=== PATIENT | female | born 1970 | race Caucasian/White ===

== ENCOUNTER 2018-02-17 10:09 | Observation (INO) ==
--- NOTE | 2018-02-17 11:51 | History & Physical Report ---
*Admission Date: 02/17/18 *Chief complaint: RLL & RML Pneumonia *History of present illness: Patient was seen in the ER on 02/12/18 and diagnosed with bronchitis. Started on Levaquin and Prednisone. Was seen again on 02/14/18 at the [facility] because she could not stop coughing. CXR showed RLL and RML pneumonia. Today, she still feels poorly. Cough is intractable. Productive of colored sputum. She does smoke. No fever per thermometer, but hot flashes and cold chills. No vomiting or diarrhea. [facility] History I have reviewed the patient's past medical history: Yes Medical History: Reports:: Anxiety, Depression, Gastroesophageal Reflux Disease (GERD) Other Surgeries: Yes: , Hysterectomy-Total Amputation: No Fractures: No - *Social History Smoking Status: Current every day smoker Tobacco Type: cigarettes # Packs/Day (cigarettes): 1 Alcohol Intake: current Alcohol Intake Frequency:: holidays/special occasions only Substance Use Type: denies use - Psychiatric History Pschychiatric History:: Reports:: Anxiety, Depression *Family Hx:: Cancer Review of Systems - Review of Systems Review of systems:: pertinent systems reviewed and negative unless documented below - Constitutional Reports body ache(s), Reports chills, Reports fatigue, Reports malaise, Denies fever(s) - ENT Reports sore throat - *Cardiovascular Reports chest pain, Reports shortness of breath when lying down - *Respiratory Reports chest congestion, Reports cough, Reports pain on inspiration, Reports wheezing - Psychiatric Reports anxiety Meds Allergies Allergy/AdvReac Type Severity Reaction Status Date / Time No Known Allergies Allergy Verified 02/17/18 09:49 Exam - Constitutional mild distress - *Routine HEENT Exam Head: Present: normocephalic Eye: Present: PERRL ENT: Present: mucous membranes moist, oropharynx clear, TM's clear bilaterally. Absent: sinus tenderness - *Routine Neck Exam Present: supple, full ROM. Absent: meningismus - Routine Chest/Breast/Axilla Exam Chest wall: Present: tenderness - *Routine Respiratory Exam Present: accessory muscle use, decreased breath sounds, respiratory distress (mild), rhonchi, wheezes - *Routine Cardiovascular Exam Present: RRR. Absent: murmur - *Routine Extremities Exam Absent: cyanosis, clubbing, edema - *Routine Skin Exam Present: intact. Absent: cyanosis - *Routine Neurological Exam Present: alert, oriented X3 - Routine Psychiatric Exam Present: anxious H&P: Result - Impressions RML & RLL Pneumonia Assessment and Plan (1) RLL pneumonia Status: Acute Qualifiers: Pneumonia type: due to unspecified organism Qualified Code(s): J18.1 - Lobar pneumonia, unspecified organism Category: Medical Code(s): J18.1 - Lobar pneumonia, unspecified organism - Assessment and plan all Dx Assessment and Plan for all problems:: Antibiotics, steroids, breathing treatments
--- NOTE | 2018-02-17 12:20 | Pharmacy Consult Notes ---
[facility] Pharmacy VTE Monitoring - Patient Demographics Admission date: 02/17/18 Report Date: 02/17/18 Time: 12:20 Allergies/Adverse Reactions: Patient Allergies No Known Allergies Allergy (Verified 02/17/18 09:49) - VTE Risk Clinical Trial Participant: No - Prophylaxis VTE Prophylaxis Ordered?: Yes Types of VTE Prophylaxis: TEDS Knee High
[2018-02-17 13:26] LABS: Albumin Level 3.7 gm/dL (3.4-5.0); Albumin/Globulin Ratio 0.9 (1.1-1.8); Anion Gap 15.1 mEq/L (5-15); Bilirubin,Total 0.5 mg/dL (0.2-1.0); Globulin 3.9 gm/dl (1.3-3.2); Total Protein,Serum 7.6 gm/dL (6.4-8.2)
[2018-02-17 13:27] LABS: Potassium 4.1 mmoL/L (3.5-5.1)
[2018-02-17 13:40] LABS: Basophils # 0.1 K/mm3 (0-0.2); Basophils % 0.8 % (0.1-2.0); Eosinophils # 0.2 K/mm3 (0.0-0.4); Eosinophils % 1.6 % (0.1-12.0); Hemoglobin 15.2 g/dL (12.2-16.2); Lymphocytes # 2.5 K/mm3 (0.7-4.5); Lymphocytes % 24.8 K/mm3 (10-50); Mean Corpuscular HGB Conc 32.4 g/dL (31.8-35.4); Mean Corpuscular Hemoglobin 28.4 pg (27.0-31.2); Mean Corpuscular Volume 87.4 fl (81-99); Mean Platelet Volume 8.8 fl (7.4-10.4); Monocytes # 0.5 K/mm3 (0.1-1.0); Neutrophils # 6.7 K/mm3 (1.8-7.8); Neutrophils % 67.8 % (37.0-80.0); Platelet Count 229 K/mm3 (142-424); Red Blood Count 5.38 M/mm3 (4.20-5.40); White Blood Count 9.9 K/mm3 (4.8-10.8)
--- NOTE | 2018-02-18 09:28 | Progress Note ---
Internal Medicine - PN: Subj *Date: 02/18/18 *Time: : Exam Vital signs and Labs for Last 24 Hours: Temp Pulse Resp BP Pulse Ox 99.2 F 61 18 99/65 98 02/18/18 08:00 02/18/18 08:00 02/18/18 08:28 02/18/18 08:00 02/18/18 08:00 Laboratory Results - last 24 hr 02/17/18 12:20: WBC 9.9, RBC 5.38, Hgb 15.2, Hct 47.0, MCV 87.4, MCH 28.4, MCHC 32.4, RDW 13.0, Plt Count 229, MPV 8.8, Neut % (Auto) 67.8, Lymph % (Auto) 24.8, Brooks % (Auto) 5.0, Eos % (Auto) 1.6, Baso % (Auto) 0.8, Neut # (Auto) 6.7, Lymph # (Auto) 2.5, Brooks # (Auto) 0.5, Eos # (Auto) 0.2, Baso # (Auto) 0.1 02/17/18 12:20: Sodium 140, Potassium 4.1, Chloride 103, Carbon Dioxide 26, Anion Gap 15.1 H, BUN 14, Creatinine 0.71, Estimated Creat Clear 106, Estimated GFR 89, Est GFR ( Amer) 107, Glucose 100, Calcium 9.0, Total Bilirubin 0.5, AST 22, ALT 23, Alkaline Phosphatase 98, Total Protein 7.6, Albumin 3.7, Globulin 3.9 H, Albumin/Globulin Ratio 0.9 L 02/17/18 12:20: Lactate 1.5 I & O for Last 24 hours: Intake & Output 02/15/18 02/16/18 02/17/18 02/18/18 11:59 11:59 11:59 11:59 Intake Total 2533 / 2533 Balance 2533 / 2533 Weight 219 lb 1 oz Microbiology Reports for the Last 24 Hours: Microbiology 02/17/18 20:00 Sputum - Expectorated Sputum Gram Stain - Final - *Routine HEENT Exam Head: Present: normocephalic Eye: Present: EOMI, PERRL ENT: Present: mucous membranes moist - *Routine Neck Exam Present: supple. Absent: lymphadenopathy - *Routine Respiratory Exam Present: wheezes, diminished air movement - *Routine Cardiovascular Exam Present: RRR - *Routine Abdominal Exam Present: soft, normoactive bowel sounds. Absent: tenderness - *Routine Extremities Exam Absent: cyanosis, clubbing, edema - *Routine Skin Exam Present: warm. Absent: rash - *Routine Neurological Exam Present: alert, oriented X3 Assessment and Plan (1) RLL pneumonia Current visit: No Status: Acute Qualifiers: Pneumonia type: due to unspecified organism Qualified Code(s): J18.1 - Lobar pneumonia, unspecified organism Category: Medical Code(s): J18.1 - Lobar pneumonia, unspecified organism - Assessment and plan all Dx Assessment and Plan for all problems:: rounded with jonathan, all orders per jonathan failed out pt antibotics
--- NOTE | 2018-02-19 08:08 | Discharge Summary ---
General - General Admission date:: 02/17/18 Discharge date: 02/19/18 HPI HPI: Patient was seen in the ER on 02/12/18 and diagnosed with bronchitis. Started on Levaquin and Prednisone. Was seen again on 02/14/18 at the [facility] because she could not stop coughing. CXR showed RLL and RML pneumonia. Today, she still feels poorly. Cough is intractable. Productive of colored sputum. She does smoke. No fever per thermometer, but hot flashes and cold chills. No vomiting or diarrhea. Above note per admission provider. Patient admitted for failure of outpatient therapy with pneumonia. Heavy smoker, not interested in quitting Hospital Course Hospital Course: Patient was admitted, placed on broad-spectrum antibiotics and oxygen therapy. Patient was able to be weaned off of her oxygen after 24 hours and has had acceptable room air saturations in the mid 90% and draped since that time. This morning patient was eating well, did complain of a cough with some chest wall pain, but otherwise was able to engage in self-care activities, walk about the room and dress herself, use the restroom and eat well. Patient will be discharged home with antibiotics and steroids and she reports that she has a prescription for Tessalon for cough. Of note patient asks for "pain medications for my cough pain" but I informed her that narcotic/opiate therapy for her cough was not currently standard of care because of respiratory suppression issues. Objective Vital signs: Temp Pulse Resp BP Pulse Ox 98.2 F 74 20 113/65 95 02/19/18 07:56 02/19/18 07:56 02/19/18 07:56 02/19/18 07:56 02/19/18 07:56 Narrative: Discharge exam reveals a well appearing white female in no acute distress on room air. Oropharynx clear. Has rhonchi in both lower lung armando but good air movement accessory muscle use. No wheezing. No stridor. No JVD. Heart rate regular without murmurs. No clubbing or cyanosis. No peripheral edema. Cranial nerves are symmetric. Patient is alert, oriented x3. Able to move all extremities well without deficit. DS: Diagnosis - Discharge Diagnosis (1) RLL pneumonia Status: Acute (2) Tobacco use disorder Status: Acute Discharge Plan - Patient Discharge Instructions ACTIVITY: Continue current activity DIET: continue same diet - Follow up Plan Follow up with: Niecy Steele PA [Primary Care Provider] - 02/23/18 Disposition: Home, Self-Usp Medications: Home Medications Medication Instructions Recorded Confirmed Type Albuterol Sulfate [Albuterol HFA 2 inh INHALATION TIDP PRN 02/17/18 02/17/18 History Inhaler] Cetirizine HCl 10 mg PO DAILY 02/17/18 02/17/18 History Cyclobenzaprine HCl 10 mg PO TIDP PRN 02/17/18 02/17/18 History [Cyclobenzaprine 10mg Tab] Omeprazole [Omeprazole 40mg 40 mg PO DAILY 02/17/18 02/17/18 History Capsule] SUMAtriptan succinate [Imitrex] 50 mg PO BIDP PRN 02/17/18 02/17/18 History buPROPion HCl [Bupropion Xl] 150 mg PO DAILY 02/17/18 02/17/18 History clonazePAM [Clonazepam] 0.5 mg PO BIDP PRN 02/17/18 02/17/18 History Prescriptions/Medication Reconciliation: New Azithromycin [Zithromax 250mg tab] 250 mg PO DIRECTED #6 tab Cefdinir [Omnicef 300mg Capsule] 300 mg PO BID #14 cap predniSONE [Deltasone 20mg tablet] 20 mg PO BID 7 Days #14 tab Continue Cetirizine HCl 10 mg PO DAILY Albuterol Sulfate [Albuterol HFA Inhaler] 2 inh INHALATION TIDP PRN PRN Reason: breathing SUMAtriptan succinate [Imitrex] 50 mg PO BIDP PRN PRN Reason: Headache clonazePAM [Clonazepam] 0.5 mg PO BIDP PRN PRN Reason: Anxiety Omeprazole [Omeprazole 40mg Capsule] 40 mg PO DAILY Promethazine/Dextromethorphan [Promethazine-Dm Syrup] 5 ml PO Q6HP PRN 10 Days #120 syrup PRN Reason: Cough Cyclobenzaprine HCl [Cyclobenzaprine 10mg Tab] 10 mg PO TIDP PRN PRN Reason: spasms buPROPion HCl [Bupropion Xl] 150 mg PO DAILY
== END 2018-02-19 10:30 | disposition home or self-care (01) ==
LOC: INTOOBSV 12:04 → 2ND 12:04
PROVIDERS: ADMIT Emergency Medicine; ATTEND Emergency Medicine
CPT/HCPCS: 36415; 71020; 71046; 80053; 83605; 85025; 87040; 87070; 87077; 87186; 87205; 94761; G0378; J0456

== ENCOUNTER → 2018-07-13 14:36 | Outpatient (CLI) | payer OTHER, SELFPAY ==
--- NOTE | 2018-07-13 14:40 | XR_ITS ---
XR foot wt bearing LT 3V HISTORY: ITS.REASON: pain ORDERING PHYSICIAN: Maryjane Ramirez DPM PATIENT AGE: 47 years COMPARISON: None FINDINGS: No fracture or dislocation. No lytic or blastic change. There is normal mineralization.. The joint spaces are well-preserved. No significant degenerative/arthritic changes. No erosive changes evident. IMPRESSION: Negative, no acute finding
--- NOTE | 2018-07-13 14:40 | XR_ITS ---
XR foot wt bearing RT 3V HISTORY: ITS.REASON: pain ORDERING PHYSICIAN: Maryjane Ramirez DPM PATIENT AGE: 47 years COMPARISON: FINDINGS: No fracture or dislocation. No lytic or blastic change. There is normal mineralization.. The joint spaces are well-preserved. No significant degenerative/arthritic changes. No erosive changes evident. IMPRESSION: Negative, no acute finding
== END ==
LOC: RAD 14:38
PROVIDERS: PCP Emergency Medicine; Visit Provider Podiatrist
DX: M79.672 Pain in left foot (principal); M79.671 Pain in right foot; B35.1 Tinea unguium; L60.8 Other nail disorders
CPT/HCPCS: 73630; 87102; 87206; 87220

== ENCOUNTER → 2018-09-06 13:43 | Outpatient (CLI) | payer OTHER, SELFPAY ==
--- NOTE | 2018-09-06 13:47 | MR_ITS ---
MR foot RT wo/w con CLINICAL INDICATION: Bunion on great toe. Pain, foot pain, tenderness ITS.REASON: pain ORDERING PHYSICIAN: Maryjane Ramirez DPM PATIENT AGE: 48 years Comparison: 07/13/2018 TECHNIQUE: Routine multiplanar multiecho sequences are performed without and with contrast FINDINGS: Incidental note is made of a small cystic area within the mid aspect of the calcaneus measuring approximately 8 mm. No bone marrow edema evident within the pelvis that would indicate an area of osteomyelitis. No abnormal enhancement.. No fracture or dislocation. No abscess or sinus tracts apparent. No ligamentous or tendinous abnormalities apparent. There are mild hypertrophic changes of the first metatarsal tarsal joint. IMPRESSION: 1. No acute finding. 2. Mild osteoarthritic changes of the first metatarsal tarsal. 3. Small calcaneal cyst
== END ==
PROVIDERS: PCP Emergency Medicine; Visit Provider Podiatrist
DX: M72.2 Plantar fascial fibromatosis (principal); M77.9 Enthesopathy, unspecified; M79.671 Pain in right foot
CPT/HCPCS: 73720; A9576

== ENCOUNTER → 2018-10-14 13:03 | Outpatient (CLI) | payer OTHER, SELFPAY ==
--- NOTE | 2018-10-14 13:09 | XR_ITS ---
XR foot wt bearing RT 3V HISTORY: Follow-up fracture ITS.REASON: fracture f/u ORDERING PHYSICIAN: Maryjane Ramirez DPM PATIENT AGE: 48 years COMPARISON: None FINDINGS: No fracture or dislocation. No lytic or blastic change. There is normal mineralization.. The joint spaces are well-preserved. No significant degenerative/arthritic changes. No erosive changes evident. IMPRESSION: Negative, no acute finding
== END ==
PROVIDERS: PCP Emergency Medicine; Visit Provider Podiatrist
DX: M25.80 Other specified joint disorders, unspecified joint (principal); M79.671 Pain in right foot; R20.2 Paresthesia of skin
CPT/HCPCS: 73630

== ENCOUNTER 2018-12-14 15:45 | Outpatient (RCR) | payer OTHER, SELFPAY ==
--- NOTE | 2018-12-14 16:54 | HMH.PTOPEV ---
PT Outpatient Evaluation Rehab PT Outpatient Evaluation Start: 12/14/18 16:31 Freq: Status: Active Protocol: Document 12/14/18 16:31 BOB (Rec: 12/14/18 16:54 YONIBEV [id number]) Electronically Signed By Lane Pulido, PT 12/14/18 16:31 Outpatient Therapy Subjective History Subjective History Patient is a 48 year old female presenting to outpatient PT with reports of R foot pain starting 08/2018. Pain initially started at the dorsal aspect of the distal 1st metatarsal. She has hx of R bunion. She reports that she was in a hard cast for 3 weeks and then transitioned to a CAM walker. Pt ambulates into clinic today with R ankle brace. Main compliant today is R heel pain. Symptoms consistent with plantar fasciitis. She also reports constant paresthesia to R lateral foot consistent with peroneal nerve distribution. No other comorbidites to report. Chief Complaint Pain,Stiff,Paresthesia, Weakness Symptom Type Ache,Throb,Sharp,Burning, Numbness,Tingling,Shooting Symptoms Relieved By Rest/Positioning Symptoms Aggravated By Standing,Physical Activity, Walking Prior Functional Limitations None Current Functional Limitations Housework,Standing,Squatting, Recreation Activity,Walking, Stairs,Balance Symptom Description Constant but Variable Level of pain today (0-10) 5 Pain scale - at its best (0-10) 4 Pain scale - at its worst (0-10) 6 Ankle/Foot Eval Gait Observation General Gait Pattern Observation Antalgic Gait,Decrease Weight Bear (R) Palpation Tenderness right Ankle/Foot Palpation Findings Tenderness Ankle/Foot Palpation Overall Comment dorsal distal 1st metatarsal, calcaneal tubercle, 5t ray ROM Ankle/Foot Dorsiflexion w/Knee Extended -3 Active Range Motion (degrees) Ankle/Foot Plantar Flexion Active Range 52 of Motion (degrees) Ankle/Foot Eversion Active Range of 9 Motion (degrees) Ankle/Foot Inversion Active Range of 25 Motion (degrees) Ankle/Foot ROM Limitations
== END 2018-12-14 15:50 | disposition home or self-care (01) ==
LOC: PT 15:45
PROVIDERS: PCP Emergency Medicine; Visit Provider Podiatrist
DX: M25.80 Other specified joint disorders, unspecified joint (principal)
CPT/HCPCS: 97014; 97016; 97163; G0283

== ENCOUNTER 2019-10-31 10:50 | Observation (INO) | payer OTHER, MEDICAID, SELFPAY ==
[2019-10-31] VITALS (7 sets, daily range): BP systolic 115–137; BP diastolic 68–87; PULSE 51–87; RESP 16–20; TEMP 36.7–36.8; O2SAT 95–100; BMI 27.4; BMI 28.3
[2019-10-31 11:25] LABS: Microscopic, Urine URINE MICROSCOPIC (MICROSCOPIC)
[2019-10-31 11:26] LABS: Appearance,Urine CLEAR (Clear); Basophils # 0.1 K/mm3 (0-0.2); Basophils % 0.5 % (0.1-2.0); Bilirubin,Urine Negative (Negative); Blood, Urine 2+ (Negative); Color,Urine YELLOW (Yellow); Eosinophils # 0.2 K/mm3 (0.0-0.4); Eosinophils % 1.4 % (0.1-12.0); Glucose,Urine (UA) Negative (Negative); Hematocrit 41.9 % (37.0-47.0); Hemoglobin 14.5 g/dL (12.2-16.2); Ketones,Urine Negative (Negative); Leukocyte Esterase,Urine Negative (Negative); Lymphocytes # 2.5 K/mm3 (0.7-4.5); Lymphocytes % 22.8 % (10-50); Mean Corpuscular HGB Conc 34.6 g/dL (31.8-35.4); Mean Corpuscular Hemoglobin 29.8 pg (27.0-31.2); Mean Corpuscular Volume 86.2 fl (81-99); Monocytes # 0.4 K/mm3 (0.1-1.0); Monocytes % 3.9 % (1.7-9.3); Neutrophils # 7.7 K/mm3 (1.8-7.8); Neutrophils % 71.5 % (37.0-80.0); Nitrate,Urine Negative (Negative); Platelet Count 214 K/mm3 (142-424); Protein,Urine Negative (Negative); Red Blood Count 4.86 M/mm3 (4.20-5.40); Red Cell Distribution Width 12.7 % (11.5-17.5); Specific Gravity, Urine 1.025 (1.005-1.030); Urobilinogen,Urine 0.2 EU/dl (0.2); White Blood Count 10.8 K/mm3 (4.8-10.8)
[2019-10-31 11:28] LABS: Chloride 111 mmol/L (98-107); Potassium 3.7 mmoL/L (3.5-5.1); Sodium 141 mmol/L (136-145)
[2019-10-31 11:30] LABS: Amylase 65 U/L (30-110); Blood Urea Nitrogen 14 mg/dl (7-17); Creatinine Clearance Estimated 106 mL/min (50-200); Estimated Glomerular Filt Rate 89 ml/min (>60); GFR (African American) 108 ML/MIN (>60)
[2019-10-31 11:31] LABS: Alanine Aminotransferase 14 U/L (12-78); Albumin Level 4.3 g/dl (3.5-5.0); Albumin/Globulin Ratio 1.4 (1.1-1.8); Alkaline Phosphatase 100 U/L (38-126); Anion Gap 11.7 mEq/L (5-15); Aspartate Amino Transferase 23 U/L (14-36); Bilirubin,Total 0.5 mg/dl (0.2-1.3); Calcium 9.4 mg/dl (8.4-10.2); Carbon Dioxide 22 mmol/L (22.0-30.0); Glucose 96 mg/dl (74-100); Lipase 51 U/L (23-300); Total Protein,Serum 7.3 g/dl (6.3-8.2)
--- NOTE | 2019-10-31 11:34 | CT_ITS ---
PROCEDURE: CT ABDOMEN PELVIS W CON CLINICAL INDICATION: abd pain Abdominal pain, right lower quadrant pain COMPARISON: No exams were available for comparison TECHNIQUE: IV Contrast: 75ML OPTIRAY 350 Oral Contrast none Axial images obtained with sagittal and coronal reformats. All CT scans at the facility use one or more dose reduction, viz: automated exposure control, ma/kV adjustment per patient size (including targeted exams where dose is matched to indication, i.e. head), or iterative reconstruction technique. FINDINGS: LOWER THORAX: Atelectatic changes in present in the right middle lobe. ABDOMEN & PELVIS: There is a small hypodensity in the medial segment of left hepatic lobe at 4 mm and may be due to small cyst. The spleen, adrenal glands, and pancreas have an unremarkable appearance. No renal or ureteral calculi. Urinary bladder baez thickened but urinary bladder is collapse which may account for this finding. There is minimal ectasia of the right ureter but no definite ureteral stone. No evidence of appendicitis. There is diverticula involving the ascending colon and cecum. There is some minimal haziness of the pericolic fat along the cecum/ascending colon adjacent to a diverticulum suspicious for right-sided diverticulitis. A diverticulosis involves the remaining colon. There is no evidence of abscess or perforation. There are post hysterectomy changes. No acute bony anomalies. There is a tiny umbilical hernia which contains fat. No intestinal obstruction or free air. IMPRESSION: 1. The findings are compatible with right-sided diverticulitis with pancolonic diverticulosis. 2. Unremarkable appearing appendix. 3. Minimal ectasia of the right ureter of questionable significance. Urinary bladder wall is thickened but could be due to nondistention versus cystitis Dictated by: Raghavendra Marshall MD 10/31/2019 12:55 Electronically signed by Raghavendra Marshall MD in [place] 10/31/2019 12:55
[2019-10-31 11:36] LABS: Bacteria,Urine Trace /lpf
--- NOTE | 2019-10-31 12:05 | HMH.EDGENADL ---
ED Disposition Clinical Impression: Diverticulitis Disposition: Admitted as Observation Condition on Discharge: Good Referrals: Yung Granados MD [Primary Care Provider] - - Critical Care Critical Care Time: No Attestation: On 10/31/19, the high probability of a clinically significant, sudden or life threatening deterioration of the following system(s) required my full and direct attention, intervention and personal management. The time I documented below is in addition to time spent performing reported procedures but includes the following listed in this critical care notation. Medical Decision Making - Chandan Inquiry Pt receiving controlled substance: No Chandan was queried for this patient: No Vital Signs: 10/31/19 10:51 10/31/19 12:21 10/31/19 13:30 Temperature 98.1 F Temperature Source Oral Pulse Rate [Right] 78 57 L 51 L Respiratory Rate 18 Blood Pressure [Right Arm] 119/75 123/78 137/81 Blood Pressure Mean [Right Arm] 89 93 99 Blood Pressure Source [Right Arm] Automatic Cuff Blood Pressure Position [Right Arm] Supine 02 Sat by Pulse Oximetry 99 100 100 Oxygen Delivery Method Room Air - Lab Data Lab Results 10/31/19 11:10: Urine Color Yellow, Urine Appearance Clear, Urine pH 6.0, Ur Specific Helen 1.025, Urine Protein Negative, Urine Glucose (UA) Negative, Urine Ketones Negative, Urine Blood 2+, Urine Nitrate Negative, Urine Bilirubin Negative, Urine Urobilinogen 0.2, Ur Leukocyte Esterase Negative, Urine RBC 5-10, Urine WBC 3-5, Ur Squamous Epith Cells 5-10, Urine Bacteria Trace 10/31/19 11:10: WBC 10.8, RBC 4.86, Hgb 14.5, Hct 41.9, MCV 86.2, MCH 29.8, MCHC 34.6, RDW 12.7, Plt Count 214, MPV 9.0, Neut % (Auto) 71.5, Lymph % (Auto) 22.8, Grand % (Auto) 3.9, Eos % (Auto) 1.4, Baso % (Auto) 0.5, Neut # (Auto) 7.7, Lymph # (Auto) 2.5, Grand # (Auto) 0.4, Eos # (Auto) 0.2, Baso # (Auto) 0.1 10/31/19 11:10: Sodium 141, Potassium 3.7, Chloride 111 H, Carbon Dioxide 22, Anion Gap 11.7, BUN 14, Creatinine 0.70, Estimated Creat Clear 106, Estimated GFR 89, Est GFR ( Amer) 108, Glucose 96, Calcium 9.4, Total Bilirubin 0.5, AST 23, ALT 14, Alkaline Phosphatase 100, Total Protein 7.3, Albumin 4.3, Globulin 3.0, Albumin/Globulin Ratio 1.4, Amylase 65, Lipase 51 Result diagrams: 10/31/19 11:10 10/31/19 11:10 Orders (Tests/Meds): ED MEDICATIONS Discontinued Medications Generic Name Dose Route Start Last Admin Trade Name Freq PRN Reason Stop Dose Admin Sodium Chloride 1,000 mls @ 999 mls/hr 10/31/19 11:30 10/31/19 11:23 Sod Chlor 0.9% 1000ml Bag IV 10/31/19 12:30 999 mls/hr .Q1H1M TOSHIA Administration Ioversol 75 ml 10/31/19 12:21 10/31/19 12:22 Rad-Optiray 350 100ml Vial IV 10/31/19 12:22 75 ml ONCE ONE Administration Protocol Morphine Sulfate 4 mg 10/31/19 11:19 10/31/19 11:23 Morphine 4mg/Ml Syringe IV 10/31/19 11:20 4 mg ONCE ONE Administration Morphine Sulfate 4 mg 10/31/19 13:35 10/31/19 13:38 Morphine 4mg/Ml Syringe IV 10/31/19 13:36 4 mg ONCE ONE Administration Ondansetron HCl 4 mg 10/31/19 11:19 10/31/19 11:23 Zofran 4mg/2ml Vial IV 10/31/19 11:20 4 mg ONCE ONE Administration Sodium Chloride 10 ml 10/31/19 12:21 10/31/19 12:22 Rad-Saline Flush 10ml Syringe IV 10/31/19 12:22 10 ml ONCE ONE Administration Medical Decision Narrative: Patient is a 49-year-old female who presents to the emergency department for evaluation of right lower quadrant abdominal pain. Differential diagnosis includes but is not limited to nephrolithiasis, appendicitis, colitis. This ordered CBC, CMP, lipase, lactate, urinalysis, CT abdomen pelvis with IV contrast. Patient given IV fluid bolus, IV morphine and IV zophran for symptomatic control. Patient's labs returned and are nonactionable. CT returns and is significant for right-sided acute diverticulitis with pain diverticulosis. Patient's appendix is normal. Yudi
--- NOTE | 2019-10-31 13:20 | PC.NURSE ---
Paged Dr Granados at this time
--- NOTE | 2019-10-31 13:39 | PC.NURSE ---
speaking to Dr Granados
--- NOTE | 2019-10-31 14:30 | PC.NURSE ---
Report given to Avril PERAZA
--- NOTE | 2019-10-31 14:33 | PC.NURSE ---
called office and spoke with BJ about general surgeon banker mason. Dr. Clark
[2019-10-31 14:52] LABS: Basophils % 0.4 % (0.1-2.0); Eosinophils # 0.2 K/mm3 (0.0-0.4); Hematocrit 39.2 % (37.0-47.0); Hemoglobin 13.2 g/dL (12.2-16.2); Lymphocytes # 2.5 K/mm3 (0.7-4.5); Lymphocytes % 24.4 % (10-50); Mean Corpuscular HGB Conc 33.6 g/dL (31.8-35.4); Mean Corpuscular Hemoglobin 29.6 pg (27.0-31.2); Mean Platelet Volume 9.6 fl (7.4-10.4); Monocytes # 0.5 K/mm3 (0.1-1.0); Monocytes % 4.4 % (1.7-9.3); Neutrophils # 7.1 K/mm3 (1.8-7.8); Neutrophils % 68.8 % (37.0-80.0); Platelet Count 174 K/mm3 (142-424); Red Blood Count 4.45 M/mm3 (4.20-5.40); Red Cell Distribution Width 12.8 % (11.5-17.5); White Blood Count 10.3 K/mm3 (4.8-10.8)
[2019-10-31 14:57] LABS: Chloride 109 mmol/L (98-107); Potassium 3.9 mmoL/L (3.5-5.1); Sodium 140 mmol/L (136-145)
[2019-10-31 15:00] LABS: Anion Gap 8.9 mEq/L (5-15); Blood Urea Nitrogen 11 mg/dl (7-17); Calcium 8.5 mg/dl (8.4-10.2); Carbon Dioxide 26 mmol/L (22.0-30.0); Creatinine Clearance Estimated 106 mL/min (50-200); Estimated Glomerular Filt Rate 89 ml/min (>60); GFR (African American) 108 ML/MIN (>60); Glucose 87 mg/dl (74-100)
--- NOTE | 2019-10-31 15:03 | HMH.PHAVTE ---
[facility] Pharmacy VTE Monitoring - Patient Demographics Admission date: 10/31/19 Report Date: 10/31/19 Time: 15:03 Allergies/Adverse Reactions: Patient Allergies No Known Allergies Allergy (Verified 08/09/19 15:39) Height: 1.57 m Weight: 68.039 kg Patient Problems: Current Active Problems Diverticulitis (Acute) - VTE Risk Labs: VTE Related Lab Results Hgb 13.2 g/dL (12.2-16.2) 10/31/19 14:18 Hct 39.2 % (37.0-47.0) 10/31/19 14:18 Plt Count 174 K/mm3 (142-424) 10/31/19 14:18 BUN 14 mg/dl (7-17) 10/31/19 11:10 Creatinine 0.70 mg/dl (0.52-1.04) 10/31/19 11:10 Estimated Creat Clear 106 mL/min (50-200) 10/31/19 11:10 Clinical Trial Participant: No - Prophylaxis VTE Prophylaxis Ordered?: Yes Types of VTE Prophylaxis: TEDS Knee High
--- NOTE | 2019-10-31 15:06 | HMH.PHAINT ---
HOME MEDICATION RECONCILIATION COMPLETED USING LIST FROM [facility].
--- NOTE | 2019-10-31 15:14 | PC.NURSE ---
Notified 2nd floor of need to transport pt, stated they would be down shortly to get her
--- NOTE | 2019-10-31 16:00 | HMH.GSCON ---
*Admission Date: 10/31/19 *Reason for consult:: Diverticulitis *History of present illness: Patient is a 49-year-old white female. She has a previous history of diverticulitis about 7 years ago. She states that she was treated as an inpatient in [place] at that time. Last week she had some minor right-sided abdominal pain. This morning it became acutely more severe. She did present to work but the pain was quite severe and she ultimately was seen in her primary care provider's office. Given the degree of pain and tenderness in the right lower quadrant she was sent to the emergency department where she was seen and evaluated. She underwent CT scan which revealed findings consistent with pandiverticulosis and right-sided diverticulitis with normal appendix. She was admitted for inpatient management and surgical consultation was obtained. Review of Systems - Review of Systems Review of systems:: pertinent systems reviewed and negative unless documented below [facility] History Medical History: Reports:: Anxiety, Depression, Gastroesophageal Reflux Disease(GERD), Migraine Denies:: Cancer, Diabetes Mellitus Type 1, Diabetes Mellitus Type 2, MRSA *Have you ever received a pneumonia vaccine?: No *Have you received a flu vaccine this season?: No Other Medical History: Reports: Anemia Other Surgeries: Yes: , Hysterectomy-Total Amputation: No Fractures: No - *Social History Smoking Status: Current every day smoker Tobacco Type: cigarettes # Packs/Day (cigarettes): 1 Alcohol Intake: never Alcohol Intake Frequency:: holidays/special occasions only Substance Use Type: denies use *Occupational Status:: unemployed Household Members: significant other *Travel in the last 8 weeks: None - Psychiatric History Pschychiatric History:: Reports:: Anxiety, Depression Family Hx:: Cancer Meds Home Medications Medication Instructions Recorded Confirmed Type pantoprazole 40 mg tablet,delayed 40 mg PO DAILY #30 tab 03/25/19 10/31/19 Rx release escitalopram oxalate 10 mg tablet 10 mg PO DAILY #30 tab 03/31/19 10/31/19 Rx diazepam 5 mg tablet 5 mg PO BID #60 tab 09/30/19 10/31/19 Rx Ibuprofen [Ibuprofen 800mg 800 mg PO Q8HP PRN 10/31/19 10/31/19 History Tablet] Allergies Allergy/AdvReac Type Severity Reaction Status Date / Time No Known Allergies Allergy Verified 08/09/19 15:39 Exam Vital signs and Labs for Last 24 Hours: Temp Pulse Resp BP Pulse Ox 98.0 F 53 L 16 116/70 98 10/31/19 15:43 10/31/19 15:43 10/31/19 15:43 10/31/19 15:43 10/31/19 15:43 Laboratory Results - last 24 hr 10/31/19 11:10: Urine Color Yellow, Urine Appearance Clear, Urine pH 6.0, Ur Specific [place] 1.025, Urine Protein Negative, Urine Glucose (UA) Negative, Urine Ketones Negative, Urine Blood 2+, Urine Nitrate Negative, Urine Bilirubin Negative, Urine Urobilinogen 0.2, Ur Leukocyte Esterase Negative, Urine RBC 5-10, Urine WBC 3-5, Ur Squamous Epith Cells 5-10, Urine Bacteria Trace 10/31/19 11:10: WBC 10.8, RBC 4.86, Hgb 14.5, Hct 41.9, MCV 86.2, MCH 29.8, MCHC 34.6, RDW 12.7, Plt Count 214, MPV 9.0, Neut % (Auto) 71.5, Lymph % (Auto) 22.8, [place] % (Auto) 3.9, Eos % (Auto) 1.4, Baso % (Auto) 0.5, Neut # (Auto) 7.7, Lymph # (Auto) 2.5, [place] # (Auto) 0.4, Eos # (Auto) 0.2, Baso # (Auto) 0.1 10/31/19 11:10: Sodium 141, Potassium 3.7, Chloride 111 H, Carbon Dioxide 22, Anion Gap 11.7, BUN 14, Creatinine 0.70, Estimated Creat Clear 106, Estimated GFR 89, Est GFR ( Amer) 108, Glucose 96, Calcium 9.4, Total Bilirubin 0.5, AST 23, ALT 14, Alkaline Phosphatase 100, Total Protein 7.3, Albumin 4.3, Globulin 3.0, Albumin/Globulin Ratio 1.4, Amylase 65, Lipase 51 10/31/19 14:18: WBC 10.3, RBC 4.45, Hgb 13.2, Hct 39.2, MCV 88.0, MCH 29.6, MCHC 33.6, RDW 12.8, Plt Count 174, MPV 9.6, Neut % (Auto) 68.8, Lymph % (Auto) 24.4, [place] % (Auto) 4.4, Eos % (Auto) 2.0, Baso % (Auto) 0.4, Neut # (Auto) 7.1, Lymph # (Auto) 2.5, [place] # (Auto) 0.5, Eos # (
--- NOTE | 2019-10-31 19:11 | PC.NURSE ---
report given to dariusz
--- NOTE | 2019-10-31 20:55 | HMH.HP ---
*Admission Date: 10/31/19 *Chief complaint: abd pain *History of present illness: pt with progressive abd pain over the last few days - pt was seen in the ed-Patient is a 49-year-old female with no significant past medical history, who presents the emergency department for right lower quadrant abdominal pain. Patient states her pain is been ongoing for the last few days, but acutely worsened today. She describes the pain as sharp in nature. Worse on palpation and with movement, better with rest. Patient denies any nausea, vomiting, or dysuria. She denies fevers, chills, chest pain, shortness of breath, or diarrhea at this time. Patient is a 49-year-old female who presents to the emergency department for evaluation of right lower quadrant abdominal pain. Differential diagnosis includes but is not limited to nephrolithiasis, appendicitis, colitis. This ordered CBC, CMP, lipase, lactate, urinalysis, CT abdomen pelvis with IV contrast. Patient given IV fluid bolus, IV morphine and IV zophran for symptomatic control. Patient's labs returned and are nonactionable. CT returns and is significant for right-sided acute diverticulitis with pain diverticulosis. Patient's appendix is normal. Reevaluation patient's vital signs are within normal limits, but despite IV morphine patient continues to complain of significant pain. Patient states she has not been able to tolerate p.o. today. IMPRESSION: 1. The findings are compatible with right-sided diverticulitis with pancolonic diverticulosis. 2. Unremarkable appearing appendix. 3. Minimal ectasia of the right ureter of questionable significance. Urinary bladder wall is thickened but could be due to nondistention pt admitted with ivf and abx and surg consult [facility] History I have reviewed the patient's past medical history: Yes Medical History: Reports:: Anxiety, Depression, Gastroesophageal Reflux Disease(GERD), Migraine Denies:: Cancer, Diabetes Mellitus Type 1, Diabetes Mellitus Type 2, MRSA *Have you ever received a pneumonia vaccine?: No *Have you received a flu vaccine this season?: No Other Medical History: Reports: Anemia Other Surgeries: Yes: (2), Hysterectomy-Total Amputation: No Fractures: No - *Social History Smoking Status: Current every day smoker Tobacco Type: cigarettes # Packs/Day (cigarettes): 1 Alcohol Intake: never Alcohol Intake Frequency:: holidays/special occasions only Substance Use Type: denies use *Occupational Status:: employed Housing: house Household Members: significant other, family *Travel in the last 8 weeks: None - Psychiatric History Pschychiatric History:: Reports:: Anxiety, Depression Family Hx:: Cancer Review of Systems - Review of Systems Review of systems:: pertinent systems reviewed and negative unless documented below - Constitutional Reports fever(s) - Eyes Denies change in vision - ENT Denies sore throat - *Cardiovascular Denies chest pain at rest - *Respiratory Denies cough - *Gastrointestinal Reports abdominal pain - *Genitourinary Denies blood in urine - *Musculoskeletal Denies joint pain - Integumentary/Breasts Denies rash - *Neurologic Denies seizure-like activity - Psychiatric Denies anxiety Meds Home Medications Medication Instructions Recorded Confirmed Type pantoprazole 40 mg tablet,delayed 40 mg PO DAILY #30 tab 03/25/19 10/31/19 Rx release escitalopram oxalate 10 mg tablet 10 mg PO DAILY #30 tab 03/31/19 10/31/19 Rx diazepam 5 mg tablet 5 mg PO BID #60 tab 09/30/19 10/31/19 Rx Ibuprofen [Ibuprofen 800mg 800 mg PO Q8HP PRN 10/31/19 10/31/19 History Tablet] Allergies Allergy/AdvReac Type Severity Reaction Status Date / Time No Known Allergies Allergy Verified 08/09/19 15:39 Exam Vital signs and Labs for Last 24 Hours: Temp Pulse Resp BP Pulse Ox 98.0 F 58 L 17 118/68 95 10/31/19 20:00 10/31/19 20:00 10/31/19 20:00 10/31/19 20:00
[2019-11-01 04:00] VITALS: BP 90/53; PULSE 46; RESP 17; TEMP 36.8; O2SAT 98
[2019-11-01 05:19] VITALS: BMI 28.5
--- NOTE | 2019-11-01 05:37 | PC.NURSE ---
A&OX4. PT HAS TOLERATED ROOM AIR WELL THROUGHOUT SHIFT. RESPIRATIONS REGULAR AND UNLABORED. LUNG SOUNDS BILATERALLY CLEAR. HEART RATE REGULAR. NO COUGH NOTED. 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 ACTIVE BOWEL SOUNDS HEARD IN ALL 4 QUADRANTS. SOFT AND TENDER ABDOMEN. LR INFUSING AT 125 ML/HR. PT HAS HAD SEVERAL EPISODES OF NAUSEA AND PAIN. ZOFRAN 4MG, PHENERGAN 25MG, AND MORPHINE 8MG ADMINISTERED PER MAR. PT REPORTS AN UNWITNESSED EPISODE OF VOMITTING. REPORTED TO MD AND PHENERGAN WAS ORDERED. ON REASSESSMENT, PT STATED NAUSEA HAD EASED, PAIN HAD DECREASED, OR WAS RESTING W HER EYES CLOSED. +2 PULSES NOTED THROUGHOUT. BED IN LOWEST POSITION. CALL LIGHT WITHIN REACH. VSS. NO CONCERNS AT THIS TIME. WILL CONTINUE TO MONITOR.
--- NOTE | 2019-11-01 06:45 | PC.NURSE ---
PT VOIDED PER BSC TWICE, ASSISTED PER THIS RN TO BSC WITH SBA EACH TIME, URINE UNMEASURES AND NOTED CLEAR/YELLOW.
--- NOTE | 2019-11-01 06:46 | HMH.GSPN ---
Subjective Narrative: Patient resting comfortably this morning but complains of pain persistent. Had some nausea and taking phenrgan. Exam Vital signs and Labs for Last 24 Hours: Temp Pulse Resp BP Pulse Ox 98.2 F 46 L 17 90/53 L 98 11/01/19 04:00 11/01/19 04:00 11/01/19 04:00 11/01/19 04:00 11/01/19 04:00 Laboratory Results - last 24 hr 10/31/19 11:10: Urine Color Yellow, Urine Appearance Clear, Urine pH 6.0, Ur Specific [place] 1.025, Urine Protein Negative, Urine Glucose (UA) Negative, Urine Ketones Negative, Urine Blood 2+, Urine Nitrate Negative, Urine Bilirubin Negative, Urine Urobilinogen 0.2, Ur Leukocyte Esterase Negative, Urine RBC 5-10, Urine WBC 3-5, Ur Squamous Epith Cells 5-10, Urine Bacteria Trace 10/31/19 11:10: WBC 10.8, RBC 4.86, Hgb 14.5, Hct 41.9, MCV 86.2, MCH 29.8, MCHC 34.6, RDW 12.7, Plt Count 214, MPV 9.0, Neut % (Auto) 71.5, Lymph % (Auto) 22.8, [place] % (Auto) 3.9, Eos % (Auto) 1.4, Baso % (Auto) 0.5, Neut # (Auto) 7.7, Lymph # (Auto) 2.5, [place] # (Auto) 0.4, Eos # (Auto) 0.2, Baso # (Auto) 0.1 10/31/19 11:10: Sodium 141, Potassium 3.7, Chloride 111 H, Carbon Dioxide 22, Anion Gap 11.7, BUN 14, Creatinine 0.70, Estimated Creat Clear 106, Estimated GFR 89, Est GFR ( Amer) 108, Glucose 96, Calcium 9.4, Total Bilirubin 0.5, AST 23, ALT 14, Alkaline Phosphatase 100, Total Protein 7.3, Albumin 4.3, Globulin 3.0, Albumin/Globulin Ratio 1.4, Amylase 65, Lipase 51 10/31/19 14:18: WBC 10.3, RBC 4.45, Hgb 13.2, Hct 39.2, MCV 88.0, MCH 29.6, MCHC 33.6, RDW 12.8, Plt Count 174, MPV 9.6, Neut % (Auto) 68.8, Lymph % (Auto) 24.4, [place] % (Auto) 4.4, Eos % (Auto) 2.0, Baso % (Auto) 0.4, Neut # (Auto) 7.1, Lymph # (Auto) 2.5, [place] # (Auto) 0.5, Eos # (Auto) 0.2, Baso # (Auto) 0.0 10/31/19 14:18: Sodium 140, Potassium 3.9, Chloride 109 H, Carbon Dioxide 26, Anion Gap 8.9, BUN 11, Creatinine 0.70, Estimated Creat Clear 106, Estimated GFR 89, Est GFR ( Amer) 108, Glucose 87, Calcium 8.5 I & O for Last 24 hours: Intake & Output 10/29/19 10/30/19 10/31/19 11/01/19 11:59 11:59 11:59 11:59 Intake Total 2543 / 2543 Output Total 150 / 150 Balance 2393 / 2393 Weight 150 lb 155 lb 0.006 oz - *Routine Abdominal Exam Present: soft, tenderness Progress Note: A&P Assessment and Plan for All Diagnoses:: Continue non-operative management of uncomplicated diverticulitis for now.
[2019-11-01 07:37] VITALS: BP 95/62; PULSE 61; RESP 17; TEMP 36.8; O2SAT 97
[2019-11-01 08:10] VITALS: PULSE 61; RESP 17; O2SAT 97
[2019-11-01 08:13] LABS: Basophils % 0.5 % (0.1-2.0); Eosinophils # 0.2 K/mm3 (0.0-0.4); Eosinophils % 2.3 % (0.1-12.0); Hematocrit 37.4 % (37.0-47.0); Hemoglobin 12.7 g/dL (12.2-16.2); Lymphocytes % 27.5 % (10-50); Mean Corpuscular HGB Conc 33.8 g/dL (31.8-35.4); Mean Corpuscular Hemoglobin 29.7 pg (27.0-31.2); Mean Platelet Volume 10.2 fl (7.4-10.4); Monocytes # 0.4 K/mm3 (0.1-1.0); Monocytes % 5.5 % (1.7-9.3); Neutrophils # 4.7 K/mm3 (1.8-7.8); Neutrophils % 64.2 % (37.0-80.0); Platelet Count 168 K/mm3 (142-424); Red Blood Count 4.26 M/mm3 (4.20-5.40); Red Cell Distribution Width 12.7 % (11.5-17.5); White Blood Count 7.4 K/mm3 (4.8-10.8)
[2019-11-01 08:23] LABS: Chloride 109 mmol/L (98-107); Potassium 3.7 mmoL/L (3.5-5.1); Sodium 136 mmol/L (136-145)
[2019-11-01 08:26] LABS: Anion Gap 5.7 mEq/L (5-15); Blood Urea Nitrogen 9 mg/dl (7-17); Carbon Dioxide 25 mmol/L (22.0-30.0); Creatinine Clearance Estimated 109 mL/min (50-200); Estimated Glomerular Filt Rate 89 ml/min (>60); GFR (African American) 108 ML/MIN (>60)
[2019-11-01 08:27] LABS: Calcium 8.8 mg/dl (8.4-10.2); Glucose 79 mg/dl (74-100)
--- NOTE | 2019-11-01 08:53 | HMH.ACPN2 ---
Internal Medicine - PN: Subj *Date: 11/01/19 *Time: 08:53 Interval history: 49-year-old female patient lying in bed resting quietly, reports she does feel better today. Exam Vital signs and Labs for Last 24 Hours: Temp Pulse Resp BP Pulse Ox 98.2 F 61 17 95/62 L 97 11/01/19 07:37 11/01/19 08:10 11/01/19 08:10 11/01/19 07:37 11/01/19 08:10 Laboratory Results - last 24 hr 10/31/19 11:10: Urine Color Yellow, Urine Appearance Clear, Urine pH 6.0, Ur Specific [place] 1.025, Urine Protein Negative, Urine Glucose (UA) Negative, Urine Ketones Negative, Urine Blood 2+, Urine Nitrate Negative, Urine Bilirubin Negative, Urine Urobilinogen 0.2, Ur Leukocyte Esterase Negative, Urine RBC 5-10, Urine WBC 3-5, Ur Squamous Epith Cells 5-10, Urine Bacteria Trace 10/31/19 11:10: WBC 10.8, RBC 4.86, Hgb 14.5, Hct 41.9, MCV 86.2, MCH 29.8, MCHC 34.6, RDW 12.7, Plt Count 214, MPV 9.0, Neut % (Auto) 71.5, Lymph % (Auto) 22.8, [place] % (Auto) 3.9, Eos % (Auto) 1.4, Baso % (Auto) 0.5, Neut # (Auto) 7.7, Lymph # (Auto) 2.5, [place] # (Auto) 0.4, Eos # (Auto) 0.2, Baso # (Auto) 0.1 10/31/19 11:10: Sodium 141, Potassium 3.7, Chloride 111 H, Carbon Dioxide 22, Anion Gap 11.7, BUN 14, Creatinine 0.70, Estimated Creat Clear 106, Estimated GFR 89, Est GFR ( Amer) 108, Glucose 96, Calcium 9.4, Total Bilirubin 0.5, AST 23, ALT 14, Alkaline Phosphatase 100, Total Protein 7.3, Albumin 4.3, Globulin 3.0, Albumin/Globulin Ratio 1.4, Amylase 65, Lipase 51 10/31/19 14:18: WBC 10.3, RBC 4.45, Hgb 13.2, Hct 39.2, MCV 88.0, MCH 29.6, MCHC 33.6, RDW 12.8, Plt Count 174, MPV 9.6, Neut % (Auto) 68.8, Lymph % (Auto) 24.4, [place] % (Auto) 4.4, Eos % (Auto) 2.0, Baso % (Auto) 0.4, Neut # (Auto) 7.1, Lymph # (Auto) 2.5, [place] # (Auto) 0.5, Eos # (Auto) 0.2, Baso # (Auto) 0.0 10/31/19 14:18: Sodium 140, Potassium 3.9, Chloride 109 H, Carbon Dioxide 26, Anion Gap 8.9, BUN 11, Creatinine 0.70, Estimated Creat Clear 106, Estimated GFR 89, Est GFR ( Amer) 108, Glucose 87, Calcium 8.5 11/01/19 08:03: WBC 7.4 D, RBC 4.26, Hgb 12.7, Hct 37.4, MCV 88.0, MCH 29.7, MCHC 33.8, RDW 12.7, Plt Count 168, MPV 10.2, Neut % (Auto) 64.2, Lymph % (Auto) 27.5, [place] % (Auto) 5.5, Eos % (Auto) 2.3, Baso % (Auto) 0.5, Neut # (Auto) 4.7, Lymph # (Auto) 2.0, [place] # (Auto) 0.4, Eos # (Auto) 0.2, Baso # (Auto) 0.0 11/01/19 08:03: Sodium 136, Potassium 3.7, Chloride 109 H, Carbon Dioxide 25, Anion Gap 5.7, BUN 9, Creatinine 0.70, Estimated Creat Clear 109, Estimated GFR 89, Est GFR ( Amer) 108, Glucose 79, Calcium 8.8 I & O for Last 24 hours: Intake & Output 10/29/19 10/30/19 10/31/19 11/01/19 23:59 23:59 23:59 23:59 Intake Total 1100 / 1100 1543 / 1543 Output Total 150 / 150 Balance 950 / 950 1543 / 1543 Weight 155 lb 155 lb 0.006 oz - Constitutional no acute distress - *Routine HEENT Exam Head: Present: normocephalic Eye: Present: normal accommodation ENT: Present: mucous membranes moist. Absent: sinus tenderness - *Routine Neck Exam Present: full ROM, trachea midline. Absent: JVD, tracheal deviation - *Routine Respiratory Exam Present: CTA bilaterally. Absent: accessory muscle use - *Routine Cardiovascular Exam Present: RRR - *Routine Abdominal Exam Present: soft, normoactive bowel sounds, tenderness - *Routine Extremities Exam Present: full ROM, pulses intact. Absent: calf tenderness - Routine Back/Spine/Pelvis Exam Back/Spine: Present: full ROM. Absent: CVA tenderness - *Routine Skin Exam Present: intact, warm. Absent: jaundice - *Routine Neurological Exam Present: alert, oriented X3. Absent: altered mental status - Routine Psychiatric Exam Present: normal affect, normal thought process Assessment and Plan (1) Acute diverticulitis Current visit: Yes Status: Acute Category: Medical Code(s): K57.92 - Diverticulitis of intestine, part unspecified, without perforation or abscess without bleeding (2) Tobacco use disorder Current
--- NOTE | 2019-11-01 15:20 | PC.NURSE ---
Pt has been pleasant and cooperative this shift. A&O X4. Pt has complained of pain and nausea multiple times this shift and has been medicated per MAR with favorable results. Pt ambulates independently to the BSC and back to bed. Urine is clear and yellow in color. No BM this shift. Pt sat up in the chair for a few hours without difficulty. 20 G peripheral IV in the RT AC infusing LR @ 125 ML/HR. Lungs CTA. VSS. Call light within reach. Will continue to monitor.
[2019-11-01 16:00] VITALS: BP 111/65; PULSE 64; RESP 18; TEMP 36.7; O2SAT 95
[2019-11-01 19:48] VITALS: BP 122/70; PULSE 63; RESP 17; TEMP 36.9; O2SAT 99
[2019-11-02 04:00] VITALS: BP 108/64; PULSE 76; RESP 16; TEMP 37.3; O2SAT 96
[2019-11-02 06:03] VITALS: BMI 28.5
--- NOTE | 2019-11-02 07:08 | HMH.GSPN ---
Subjective Narrative: Patient states that her pain is improving. She does state that she has had nausea with the high-dose morphine and seems to do better with lower dose morphine combined with Phenergan. Somewhat surprisingly she still n.p.o. Exam Vital signs and Labs for Last 24 Hours: Temp Pulse Resp BP Pulse Ox 99.1 F 76 16 108/64 L 96 11/02/19 04:00 11/02/19 04:00 11/02/19 04:00 11/02/19 04:00 11/02/19 04:00 Laboratory Results - last 24 hr 11/01/19 08:03: WBC 7.4 D, RBC 4.26, Hgb 12.7, Hct 37.4, MCV 88.0, MCH 29.7, MCHC 33.8, RDW 12.7, Plt Count 168, MPV 10.2, Neut % (Auto) 64.2, Lymph % (Auto) 27.5, [place] % (Auto) 5.5, Eos % (Auto) 2.3, Baso % (Auto) 0.5, Neut # (Auto) 4.7, Lymph # (Auto) 2.0, [place] # (Auto) 0.4, Eos # (Auto) 0.2, Baso # (Auto) 0.0 11/01/19 08:03: Sodium 136, Potassium 3.7, Chloride 109 H, Carbon Dioxide 25, Anion Gap 5.7, BUN 9, Creatinine 0.70, Estimated Creat Clear 109, Estimated GFR 89, Est GFR ( Amer) 108, Glucose 79, Calcium 8.8 I & O for Last 24 hours: Intake & Output 10/30/19 10/31/19 11/01/19 11/02/19 11:59 11:59 11:59 11:59 Intake Total 2893 / 2893 1923 / 1923 Output Total 150 / 150 1745 / 1745 Balance 2743 / 2743 178 / 178 Weight 150 lb 155 lb 0.006 oz 155 lb 0.006 oz - *Routine Abdominal Exam Comments: Her abdomen is soft. She does have some focal tenderness without guarding in the right lower quadrant. Progress Note: A&P (1) Acute diverticulitis Status: Acute Current Visit: Yes (2) Tobacco use disorder Status: Acute Current Visit: No Assessment and Plan for All Diagnoses:: I will go ahead and place an order for a diet. Hopefully can transition to oral antibiotics and outpatient management seen
[2019-11-02 07:31] LABS: Chloride 106 mmol/L (98-107); Potassium 3.4 mmoL/L (3.5-5.1); Sodium 139 mmol/L (136-145)
[2019-11-02 07:32] LABS: Basophils % 0.4 % (0.1-2.0); Eosinophils # 0.1 K/mm3 (0.0-0.4); Eosinophils % 0.9 % (0.1-12.0); Hematocrit 37.7 % (37.0-47.0); Hemoglobin 12.7 g/dL (12.2-16.2); Lymphocytes # 1.9 K/mm3 (0.7-4.5); Mean Corpuscular HGB Conc 33.6 g/dL (31.8-35.4); Mean Corpuscular Hemoglobin 29.8 pg (27.0-31.2); Mean Corpuscular Volume 88.8 fl (81-99); Mean Platelet Volume 8.9 fl (7.4-10.4); Monocytes # 0.5 K/mm3 (0.1-1.0); Neutrophils # 7.4 K/mm3 (1.8-7.8); Neutrophils % 74.7 % (37.0-80.0); Platelet Count 165 K/mm3 (142-424); Red Blood Count 4.25 M/mm3 (4.20-5.40); Red Cell Distribution Width 12.6 % (11.5-17.5); White Blood Count 9.9 K/mm3 (4.8-10.8)
[2019-11-02 07:34] LABS: Anion Gap 14.4 mEq/L (5-15); Blood Urea Nitrogen 11 mg/dl (7-17); Carbon Dioxide 22 mmol/L (22.0-30.0); Creatinine Clearance Estimated 95 mL/min (50-200); Estimated Glomerular Filt Rate 77 ml/min (>60); GFR (African American) 93 ML/MIN (>60)
[2019-11-02 07:35] LABS: Calcium 8.7 mg/dl (8.4-10.2); Glucose 60 mg/dl (74-100)
[2019-11-02 07:59] VITALS: BP 113/63; PULSE 81; RESP 15; TEMP 36.8; O2SAT 96
--- NOTE | 2019-11-02 13:53 | HMH.DCSUM ---
General - General Admission date:: 10/31/19 Discharge date: 11/02/19 HPI HPI: pt with progressive abd pain over the last few days - pt was seen in the ed-Patient is a 49-year-old female with no significant past medical history, who presents the emergency department for right lower quadrant abdominal pain. Patient states her pain is been ongoing for the last few days, but acutely worsened today. She describes the pain as sharp in nature. Worse on palpation and with movement, better with rest. Patient denies any nausea, vomiting, or dysuria. She denies fevers, chills, chest pain, shortness of breath, or diarrhea at this time. Patient is a 49-year-old female who presents to the emergency department for evaluation of right lower quadrant abdominal pain. Differential diagnosis includes but is not limited to nephrolithiasis, appendicitis, colitis. This ordered CBC, CMP, lipase, lactate, urinalysis, CT abdomen pelvis with IV contrast. Patient given IV fluid bolus, IV morphine and IV zophran for symptomatic control. Patient's labs returned and are nonactionable. CT returns and is significant for right-sided acute diverticulitis with pain diverticulosis. Patient's appendix is normal. Reevaluation patient's vital signs are within normal limits, but despite IV morphine patient continues to complain of significant pain. Patient states she has not been able to tolerate p.o. today. IMPRESSION: 1. The findings are compatible with right-sided diverticulitis with pancolonic diverticulosis. 2. Unremarkable appearing appendix. 3. Minimal ectasia of the right ureter of questionable significance. Urinary bladder wall is thickened but could be due to nondistention pt admitted with ivf and abx and surg consult Hospital Course Hospital Course: pt with progressive abd pain over the last few days - pt was seen in the ed-Patient is a 49-year-old female with no significant past medical history, who presents the emergency department for right lower quadrant abdominal pain. Patient states her pain is been ongoing for the last few days, but acutely worsened today. She describes the pain as sharp in nature. Worse on palpation and with movement, better with rest. Patient denies any nausea, vomiting, or dysuria. She denies fevers, chills, chest pain, shortness of breath, or diarrhea at this time. Patient is a 49-year-old female who presents to the emergency department for evaluation of right lower quadrant abdominal pain. Differential diagnosis includes but is not limited to nephrolithiasis, appendicitis, colitis. This ordered CBC, CMP, lipase, lactate, urinalysis, CT abdomen pelvis with IV contrast. Patient given IV fluid bolus, IV morphine and IV zophran for symptomatic control. Patient's labs returned and are nonactionable. returns and is significant for right-sided acute diverticulitis with pain diverticulosis. Patient's appendix is normal. Reevaluation patient's vital signs are within normal limits, but despite IV morphine patient continues to complain of significant pain. Patient states she has not been able to tolerate p.o. today. Abd/Pelvic CT: IMPRESSION: 1. The findings are compatible with right-sided diverticulitis with pancolonic diverticulosis. 2. Unremarkable appearing appendix. 3. Minimal ectasia of the right ureter of questionable significance. Urinary bladder wall is thickened but could be due to nondistention pt admitted with ivf and abx and surg consult Gen Surg has seen and rec: Patient has findings consistent with non-complicated acute right-sided diverticulitis at this time. CT scan reveals no evidence of any abscess or extraluminal air but there is some stranding of the right pericolonic fat consistent with diverticulitis. Medical management at this time without need for emergent operative intervention. I would advocate outpatient colonoscopy at some point in several weeks assuming she is able to continue t
--- NOTE | 2019-11-02 15:41 | PC.NURSE ---
EDUCATION GIVE TO PATIENT ON FOLLOW UPS, DIVERTICULITIS DIET, MEDICATIONS. PATIENT DISCHARGED HOME WALKED OUT TO CAR. VERIFIED WITH REHAB AIDE PATIENT COULD DRIVE SELF HOME. SHE WAS ALERT AND ORIENTED TIMES 4. NO COMPLAINTS. PATIENT AT BASELINE
== END 2019-11-02 15:45 | disposition home or self-care (01) ==
LOC: ER 14:14 → 2ND 14:59
PROVIDERS: Nurse Practitioner Family; Admitting Provider Emergency Medicine; Emergency Provider Emergency Medicine; PCP Emergency Medicine; Visit Provider Emergency Medicine
DX: K57.30 Diverticulosis of large intestine without perforation or abscess without bleeding (principal); Z72.0 Tobacco use
CPT/HCPCS: 36415; 74177; 80048; 80053; 81001; 82150; 83690; 85025; 96365; 96367; 96375; 96376; 99284; G0378; J1956; J2405; Q9967

== ENCOUNTER 2019-11-06 19:54 | Observation (INO) | payer OTHER, MEDICAID, SELFPAY ==
[2019-11-06] VITALS (7 sets, daily range): BP systolic 99–118; BP diastolic 67–77; PULSE 55–81; RESP 16–17; TEMP 36.7; O2SAT 95–100; BMI 28.3; BMI 26.7
[2019-11-06 20:23] LABS: Microscopic, Urine URINE MICROSCOPIC (MICROSCOPIC)
--- NOTE | 2019-11-06 20:24 | HMH.EDNVD ---
ED Disposition Clinical Impression: Vomiting and diarrhea Disposition: Admitted as Observation Condition on Discharge: Good Instructions: DI for Diarrhea and Traveler's Diarrhea -- Adult, DI for Diarrhea and Traveler's Diarrhea -- Child, DI for Nausea -- Adult, DI for Nausea -- Child Referrals: Yung Granados MD [Primary Care Provider] - - Critical Care Critical Care Time: No Attestation: On 11/06/19, the high probability of a clinically significant, sudden or life threatening deterioration of the following system(s) required my full and direct attention, intervention and personal management. The time I documented below is in addition to time spent performing reported procedures but includes the following listed in this critical care notation. Medical Decision Making - Medical Records Medical records reviewed: Yes: I reviewed the patient's medical records. - Chandan Inquiry Pt receiving controlled substance: No Vital Signs: 11/06/19 19:55 Temperature 98.1 F Temperature Source Oral Pulse Rate [Left Radial] 81 Respiratory Rate 16 Blood Pressure [Right Arm] 110/77 Blood Pressure Mean [Right Arm] 88 Blood Pressure Source [Right Arm] Automatic Cuff Blood Pressure Position [Right Arm] Sitting 02 Sat by Pulse Oximetry 95 Oxygen Delivery Method Room Air - Lab Data Lab results reviewed: Yes: I reviewed the patient's lab results. Lab Results 11/06/19 20:10: WBC 9.5, RBC 5.53 H, Hgb 16.2, Hct 47.9 H, MCV 86.5, MCH 29.3, MCHC 33.9, RDW 12.7, Plt Count 248, MPV 9.1, Neut % (Auto) 53.5, Lymph % (Auto) 37.6, [place] % (Auto) 6.1, Eos % (Auto) 2.0, Baso % (Auto) 0.9, Neut # (Auto) 5.1, Lymph # (Auto) 3.6, [place] # (Auto) 0.6, Eos # (Auto) 0.2, Baso # (Auto) 0.1, ESR 1 11/06/19 20:10: Sodium 141, Potassium 3.5, Chloride 102, Carbon Dioxide 28, Anion Gap 14.5, BUN 17, Creatinine 0.80, Estimated Creat Clear 95, Estimated GFR 77, Est GFR ( Amer) 93, Glucose 121 H, Calcium 10.1, Total Bilirubin 0.3, AST 50 H, ALT 27, Alkaline Phosphatase 96, C-Reactive Protein 1.8, Total Protein 8.2, Albumin 4.9, Globulin 3.3 H, Albumin/Globulin Ratio 1.5 11/06/19 20:17: Urine Color Yellow, Urine Appearance Clear, Urine pH 6.5, Ur Specific [place] 1.025, Urine Protein Negative, Urine Glucose (UA) Negative, Urine Ketones Negative, Urine Blood 2+, Urine Nitrate Negative, Urine Bilirubin Negative, Urine Urobilinogen 0.2, Ur Leukocyte Esterase Negative, Urine RBC 10-20, Ur Squamous Epith Cells 10-20, Amorphous Sediment Trace, Urine Mucus 4+ Result diagrams: 11/06/19 20:10 11/06/19 20:10 Orders (Tests/Meds): ED MEDICATIONS Generic Name Dose Route Start Last Admin Trade Name Freq PRN Reason Stop Dose Admin Sodium Chloride 1,000 mls @ 999 mls/hr 11/06/19 20:15 11/06/19 20:26 Sod Chlor 0.9% 1000ml Bag IV 11/06/19 21:15 999 mls/hr .Q1H1M TOSHIA Administration Discontinued Medications Generic Name Dose Route Start Last Admin Trade Name Freq PRN Reason Stop Dose Admin Ondansetron HCl 4 mg 11/06/19 20:14 11/06/19 20:25 Zofran 4mg/2ml Vial IV 11/06/19 20:15 4 mg ONCE ONE Administration Promethazine HCl 12.5 mg 11/06/19 20:18 11/06/19 20:26 Phenergan 25mg/Ml 1ml Vial IV 11/06/19 20:19 12.5 mg ONCE ONE Administration Sodium Chloride 25 ml 11/06/19 20:18 11/06/19 20:26 Sod Chlor 0.9% 25ml Bag IV 11/06/19 20:19 25 ml ONCE ONE Administration ORDERS Category Date Time Status Diarrhea 23 Panel, PCR Stat Lab 11/06/19 20:24 Ordered Nausea/Vomiting/Diarrhea HPI - General Chief complaint: Nausea/Vomiting/Diarrhea Stated complaint: V&D, abd Pain and back Time Seen by Provider: 11/06/19 20:24 Mode of Arrival: Ambulatory Source of Information: Patient, Medical Record Limitations: No Limitations Description of Symptoms (Recalled from ER Triage Doc. by RN): pt stated she was just d/c from the hospital on thursday from diverticulitis. pt since has had nausea, vomiting and diarrhea. pt called
[2019-11-06 20:38] LABS: Appearance,Urine CLEAR (Clear); Bilirubin,Urine Negative (Negative); Blood, Urine 2+ (Negative); Color,Urine YELLOW (Yellow); Glucose,Urine (UA) Negative (Negative); Ketones,Urine Negative (Negative); Leukocyte Esterase,Urine Negative (Negative); Nitrate,Urine Negative (Negative); PH,Urine 6.5 (5.0-8.5); Protein,Urine Negative (Negative); Specific Gravity, Urine 1.025 (1.005-1.030); Urobilinogen,Urine 0.2 EU/dl (0.2)
[2019-11-06 20:43] LABS: Basophils # 0.1 K/mm3 (0-0.2); Basophils % 0.9 % (0.1-2.0); Eosinophils # 0.2 K/mm3 (0.0-0.4); Hematocrit 47.9 % (37.0-47.0); Hemoglobin 16.2 g/dL (12.2-16.2); Lymphocytes # 3.6 K/mm3 (0.7-4.5); Lymphocytes % 37.6 % (10-50); Mean Corpuscular HGB Conc 33.9 g/dL (31.8-35.4); Mean Corpuscular Hemoglobin 29.3 pg (27.0-31.2); Mean Corpuscular Volume 86.5 fl (81-99); Mean Platelet Volume 9.1 fl (7.4-10.4); Monocytes # 0.6 K/mm3 (0.1-1.0); Monocytes % 6.1 % (1.7-9.3); Neutrophils # 5.1 K/mm3 (1.8-7.8); Neutrophils % 53.5 % (37.0-80.0); Platelet Count 248 K/mm3 (142-424); Red Blood Count 5.53 M/mm3 (4.20-5.40); Red Cell Distribution Width 12.7 % (11.5-17.5); White Blood Count 9.5 K/mm3 (4.8-10.8)
[2019-11-06 20:44] LABS: Alanine Aminotransferase 27 U/L (12-78); Albumin Level 4.9 g/dl (3.5-5.0); Albumin/Globulin Ratio 1.5 (1.1-1.8); Alkaline Phosphatase 96 U/L (38-126); Anion Gap 14.5 mEq/L (5-15); Aspartate Amino Transferase 50 U/L (14-36); Bilirubin,Total 0.3 mg/dl (0.2-1.3); Blood Urea Nitrogen 17 mg/dl (7-17); Calcium 10.1 mg/dl (8.4-10.2); Carbon Dioxide 28 mmol/L (22.0-30.0); Chloride 102 mmol/L (98-107); Creatinine Clearance Estimated 95 mL/min (50-200); Estimated Glomerular Filt Rate 77 ml/min (>60); GFR (African American) 93 ML/MIN (>60); Globulin 3.3 g/dL (1.3-3.2); Glucose 121 mg/dl (74-100); Potassium 3.5 mmoL/L (3.5-5.1); Sodium 141 mmol/L (136-145); Total Protein,Serum 8.2 g/dl (6.3-8.2)
[2019-11-06 20:44] LABS: Amorphous Sediment,Urine Trace /lpf; Mucus,Urine 4+ /lpf
[2019-11-06 20:49] LABS: C-Reactive Protein 1.8 mg/L (0-4)
[2019-11-06 21:15] LABS: Erythrocyte Sedimentation Rate 1 mm/hr (0-20)
--- NOTE | 2019-11-06 22:25 | XR_ITS ---
PROCEDURE: XR ACUTE ABDOMEN SERIES CLINICAL INDICATION: abd pain Lower abdominal pain with history of diverticulitis COMPARISON: No exams were available for comparison FINDINGS: Frontal view of the chest shows no acute finding. Upright and supine views of the abdomen show a nonspecific bowel gas pattern. There are few colonic air-fluid levels without distention. No free air. No small bowel obstruction or abnormal calcification or acute bony anomaly. IMPRESSION: Few scattered air-fluid levels in the large bowel nonspecific without distension otherwise negative Dictated by: Raghavendra Marshall MD 11/07/2019 06:12 Electronically signed by Raghavendra Marshall MD in [place] 11/07/2019 06:12
--- NOTE | 2019-11-06 23:21 | PC.NURSE ---
PT ARRIVED TO THE FLOOR VIA W/C FROM ED @ 2672.
[2019-11-07] VITALS: BP 115/77; PULSE 57; RESP 17; TEMP 36.6; O2SAT 99
[2019-11-07 04:45] VITALS: BP 95/58; PULSE 53; RESP 17; TEMP 36.6; O2SAT 98
[2019-11-07 04:47] VITALS: BMI 269065.7
--- NOTE | 2019-11-07 05:17 | PC.NURSE ---
Pt arrived to the floor during this shift for vomiting and abd. pain. Pt has a hx of diverticulitis and has stated she hasn't been able to keep anything down in over a week. Pt is A&O x4. Pt is on RA with clear lung sounds and no c/o SOA. Abdomen is soft and tender, with active bowel sounds in all 4 quadrants. Diarrhea panel ordered, contact enteric precautions are in place currently. Pt has complained of right sided abd pain radiating to the back x1 and nausea x1. Medications administered per MAR. Pt is currently sleeping in bed. Call light within reach, along with all safety measures. No concerns at this time, will continue to monitor.
[2019-11-07 05:57] LABS: Basophils # 0.1 K/mm3 (0-0.2); Basophils % 0.7 % (0.1-2.0); Eosinophils # 0.2 K/mm3 (0.0-0.4); Eosinophils % 2.5 % (0.1-12.0); Hematocrit 39.5 % (37.0-47.0); Lymphocytes # 3.3 K/mm3 (0.7-4.5); Lymphocytes % 38.5 % (10-50); Mean Corpuscular HGB Conc 33.8 g/dL (31.8-35.4); Mean Corpuscular Hemoglobin 29.5 pg (27.0-31.2); Mean Corpuscular Volume 87.4 fl (81-99); Mean Platelet Volume 8.7 fl (7.4-10.4); Monocytes # 0.6 K/mm3 (0.1-1.0); Monocytes % 6.6 % (1.7-9.3); Neutrophils # 4.4 K/mm3 (1.8-7.8); Neutrophils % 51.7 % (37.0-80.0); Platelet Count 180 K/mm3 (142-424); Red Blood Count 4.52 M/mm3 (4.20-5.40); Red Cell Distribution Width 12.7 % (11.5-17.5); White Blood Count 8.6 K/mm3 (4.8-10.8)
[2019-11-07 05:58] LABS: Hemoglobin 13.3 g/dL (12.2-16.2)
[2019-11-07 06:05] LABS: Chloride 111 mmol/L (98-107); Potassium 3.7 mmoL/L (3.5-5.1); Sodium 139 mmol/L (136-145)
[2019-11-07 06:08] LABS: Anion Gap 7.7 mEq/L (5-15); Blood Urea Nitrogen 13 mg/dl (7-17); Carbon Dioxide 24 mmol/L (22.0-30.0); Creatinine Clearance Estimated 104 mL/min (50-200); Estimated Glomerular Filt Rate 89 ml/min (>60); GFR (African American) 108 ML/MIN (>60)
[2019-11-07 06:12] LABS: Calcium 8.1 mg/dl (8.4-10.2); Glucose 88 mg/dl (74-100)
[2019-11-07 07:37] VITALS: BP 106/62; PULSE 59; RESP 18; TEMP 36.7; O2SAT 99
--- NOTE | 2019-11-07 07:50 | P.CONPHA_ITS ---
[facility] Pharmacy VTE Monitoring - Patient Demographics Admission date: 11/06/19 Report Date: 11/07/19 Time: 07:50 Allergies/Adverse Reactions: Patient Allergies No Known Allergies Allergy (Verified 08/09/19 15:39) Height: 1.57 cm Weight: 66.735 kg Patient Problems: Current Active Problems Vomiting and diarrhea (Acute) - VTE Risk Labs: VTE Related Lab Results Hgb 13.3 g/dL (12.2-16.2) D 11/07/19 05:46 Hct 39.5 % (37.0-47.0) 11/07/19 05:46 Plt Count 180 K/mm3 (142-424) D 11/07/19 05:46 BUN 13 mg/dl (7-17) 11/07/19 05:46 Creatinine 0.70 mg/dl (0.52-1.04) 11/07/19 05:46 Estimated Creat Clear 104 mL/min (50-200) 11/07/19 05:46 VTE Score: 6 VTE Risk Level: Moderate Risk - Prophylaxis VTE Prophylaxis Ordered?: Yes Types of VTE Prophylaxis: TEDS Knee High Location of Applied Device: Bilateral Lower Extremeties - VTE Diagnosis Confirmed Treatment or plan recommended: Continue Current Treatment
--- NOTE | 2019-11-07 08:53 | HMH.HP ---
*Admission Date: 11/06/19 *Chief complaint: vomiting and diarreha *History of present illness: 49 yr female presented to ed with c/o nausea, vomiting and diarrhea. Pt stated she was just d/c from the hospital on thursday from diverticulitis and finished antibiotics on thu. pt since has had nausea, vomiting and diarrhea and unable keep anything down. pt states she called Dr. Dubois who told her to take a probiotic and hydrate with gatorade. pt stated in ed she feels dehydrated and isn't able to keep food down.Patient denies vomiting or diarrhea since admission. Patient states she does not have an appetite but will try to eat.Pt admitted consult surgery. [facility] History I have reviewed the patient's past medical history: Yes Medical History: Reports:: Anxiety, Depression, Gastroesophageal Reflux Disease(GERD), Migraine Denies:: Cancer, Diabetes Mellitus Type 1, Diabetes Mellitus Type 2, MRSA *Have you ever received a pneumonia vaccine?: No *Have you received a flu vaccine this season?: No Other Medical History: Reports: Anemia, Arthritis, Sinus Problems Other Surgeries: Yes: Colonoscopy, (2), Hysterectomy-Total Amputation: No Fractures: No - *Social History Educational Level: Attended College Smoking Status: Current every day smoker Tobacco Type: cigarettes # Packs/Day (cigarettes): 1 Alcohol Intake: current Alcohol Intake Frequency:: holidays/special occasions only Substance Use Type: denies use *Occupational Status:: employed Housing: house Household Members: significant other *Travel in the last 8 weeks: None - Psychiatric History Pschychiatric History:: Reports:: Anxiety, Depression Family Hx:: Asthma, Cancer, Diabetes, Heart Attack, Hypertension, Stroke Review of Systems - Review of Systems Review of systems:: pertinent systems reviewed and negative unless documented below - Constitutional Denies body ache(s), Denies fever(s), Denies weight gain - Eyes Denies change in vision - ENT Denies bad breath, Denies neck pain, Denies post nasal drip, Denies sore throat - *Cardiovascular Denies chest pain at rest, Denies foot swelling - *Respiratory Denies chest congestion - *Gastrointestinal Reports loose stools, Reports nausea, Reports vomiting - *Genitourinary Denies abnormal vaginal bleeding, Denies urinary incontinence - *Musculoskeletal Denies muscle weakness - Integumentary/Breasts Denies rash - *Neurologic Denies dizziness, Denies localized weakness - Psychiatric Denies lack of enjoyment, Denies anxiety - Endocrine Denies flushing - Hematologic/Lymphatic Denies enlarged lymph nodes - Allergic/Immunologic Denies throat swelling Meds Home Medications Medication Instructions Recorded Confirmed Type escitalopram oxalate 10 mg tablet 10 mg PO DAILY #30 tab 03/31/19 11/06/19 Rx diazepam 5 mg tablet 5 mg PO BID #60 tab 09/30/19 11/06/19 Rx Ibuprofen [Ibuprofen 800mg 800 mg PO Q8HP PRN 10/31/19 11/07/19 History Tablet] Hydrocodone/Acetaminophen [[place] 1 each PO Q6 PRN 3 Days #12 tab 11/02/19 11/07/19 Rx 5-325 Tablet] Allergies Allergy/AdvReac Type Severity Reaction Status Date / Time No Known Allergies Allergy Verified 08/09/19 15:39 Exam Vital signs and Labs for Last 24 Hours: Temp Pulse Resp BP Pulse Ox 98.1 F 59 L 18 106/62 L 99 11/07/19 07:37 11/07/19 07:37 11/07/19 07:37 11/07/19 07:37 11/07/19 07:37 Laboratory Results - last 24 hr 11/06/19 20:10: WBC 9.5, RBC 5.53 H, Hgb 16.2, Hct 47.9 H, MCV 86.5, MCH 29.3, MCHC 33.9, RDW 12.7, Plt Count 248, MPV 9.1, Neut % (Auto) 53.5, Lymph % (Auto) 37.6, [place] % (Auto) 6.1, Eos % (Auto) 2.0, Baso % (Auto) 0.9, Neut # (Auto) 5.1, Lymph # (Auto) 3.6, [place] # (Auto) 0.6, Eos # (Auto) 0.2, Baso # (Auto) 0.1, ESR 1 11/06/19 20:10: Sodium 141, Potassium 3.5, Chloride 102, Carbon Dioxide 28, Anion Gap 14.5, BUN 17, Creatinine 0.80, Estimated Creat Clear 95, Estimated GFR 77, Est GFR ( Amer) 93, Gl
--- NOTE | 2019-11-07 09:06 | PC.NURSE ---
called office and spoke with katherine about consult with Dr. Clark
--- NOTE | 2019-11-07 11:43 | HMH.GSCON ---
*Admission Date: 11/06/19 *Reason for consult:: Nausea and diarrhea *History of present illness: Patient is a 49-year-old white female who had presented to the emergency department 1 week ago with right lower quadrant abdominal pain. She underwent work-up at that time including CT scan with contrast which revealed findings of right-sided diverticuli with some faint pericolonic haziness adjacent to a diverticulum consistent with mild uncomplicated diverticulitis. She remained an inpatient for medical treatment of uncomplicated right-sided diverticulitis and ultimately was discharged on 11/03/2019 on oral antibiotics. Patient states that after she advanced to beyond a liquid diet to food she developed significant vomiting and liquid diarrhea. This had persisted despite limited diet and she presented to the emergency department yesterday evening. She was admitted for inpatient management. A surgical consultation was ordered. Of note, the patient did have a previous history of left-sided diverticulitis about 6 or 7 years ago managed nonoperatively as well. She has not had any additional liquid bowel movement since admission as she states that she has not been on a diet. Review of Systems - Review of Systems Review of systems:: pertinent systems reviewed and negative unless documented below - *Neurologic Denies dizziness, Denies localized weakness [facility] History Medical History: Reports:: Anxiety, Depression, Gastroesophageal Reflux Disease(GERD), Migraine Denies:: Cancer, Diabetes Mellitus Type 1, Diabetes Mellitus Type 2, MRSA *Have you ever received a pneumonia vaccine?: No *Have you received a flu vaccine this season?: No Other Medical History: Reports: Anemia, Arthritis, Sinus Problems Other Surgeries: Yes: Colonoscopy, (2), Hysterectomy-Total Amputation: No Fractures: No - *Social History Educational Level: Attended College Smoking Status: Current every day smoker Tobacco Type: cigarettes # Packs/Day (cigarettes): 1 Alcohol Intake: current Alcohol Intake Frequency:: holidays/special occasions only Substance Use Type: denies use *Occupational Status:: employed Housing: house Household Members: significant other *Travel in the last 8 weeks: None - Psychiatric History Pschychiatric History:: Reports:: Anxiety, Depression Family Hx:: Asthma, Cancer, Diabetes, Heart Attack, Hypertension, Stroke Meds Home Medications Medication Instructions Recorded Confirmed Type escitalopram oxalate 10 mg tablet 10 mg PO DAILY #30 tab 03/31/19 11/06/19 Rx diazepam 5 mg tablet 5 mg PO BID #60 tab 09/30/19 11/06/19 Rx Ibuprofen [Ibuprofen 800mg 800 mg PO Q8HP PRN 10/31/19 11/07/19 History Tablet] Hydrocodone/Acetaminophen [[place] 1 each PO Q6 PRN 3 Days #12 tab 11/02/19 11/07/19 Rx 5-325 Tablet] Allergies Allergy/AdvReac Type Severity Reaction Status Date / Time No Known Allergies Allergy Verified 08/09/19 15:39 Exam Vital signs and Labs for Last 24 Hours: Temp Pulse Resp BP Pulse Ox 98.1 F 59 L 18 106/62 L 99 11/07/19 07:37 11/07/19 07:37 11/07/19 07:37 11/07/19 07:37 11/07/19 07:37 Laboratory Results - last 24 hr 11/06/19 20:10: WBC 9.5, RBC 5.53 H, Hgb 16.2, Hct 47.9 H, MCV 86.5, MCH 29.3, MCHC 33.9, RDW 12.7, Plt Count 248, MPV 9.1, Neut % (Auto) 53.5, Lymph % (Auto) 37.6, [place] % (Auto) 6.1, Eos % (Auto) 2.0, Baso % (Auto) 0.9, Neut # (Auto) 5.1, Lymph # (Auto) 3.6, [place] # (Auto) 0.6, Eos # (Auto) 0.2, Baso # (Auto) 0.1, ESR 1 11/06/19 20:10: Sodium 141, Potassium 3.5, Chloride 102, Carbon Dioxide 28, Anion Gap 14.5, BUN 17, Creatinine 0.80, Estimated Creat Clear 95, Estimated GFR 77, Est GFR ( Amer) 93, Glucose 121 H, Calcium 10.1, Total Bilirubin 0.3, AST 50 H, ALT 27, Alkaline Phosphatase 96, C-Reactive Protein 1.8, Total Protein 8.2, Albumin 4.9, Globulin 3.3 H, Albumin/Globulin Ratio 1.5 11/06/19 20:17: Urine Color Yellow, Urine Appearance Clear, Urine pH 6.5, Ur Specific [place]
--- NOTE | 2019-11-07 13:30 | PC.NURSE ---
contacted dr winston's office about pt diet, all orders have been cancelled and went back to npo. pt does not have tests ordered until tomorrow.
--- NOTE | 2019-11-07 13:38 | PC.NURSE ---
per dr winston, pt is to be on a bland diet and npo after midnight.
[2019-11-07 15:35] VITALS: BMI 27.1
[2019-11-07 16:00] VITALS: BP 115/75; PULSE 71; RESP 18; TEMP 36.6; O2SAT 98
--- NOTE | 2019-11-07 18:40 | PC.NURSE ---
Pt has had 2 doses of Morphine IV this shift for abd pain. Has tolerated a bland diet. Has not had a BM this hospital stay. Abd distension noted @ 1600. Pt is unable to pass flatulence or have a BM. She does not feel constipated, just severely bloated. Bowel sounds audible all 4 quad. Will have abd CT scan tomorrow. NPO after midnight. Nicotine patch started today.
--- NOTE | 2019-11-07 19:12 | PC.NURSE ---
report given to levi
[2019-11-07 20:00] VITALS: BP 108/65; PULSE 74; RESP 18; TEMP 36.8; O2SAT 98
[2019-11-08 04:00] VITALS: BP 117/76; PULSE 67; RESP 16; TEMP 36.4; O2SAT 98
[2019-11-08 05:18] VITALS: BMI 28.2
[2019-11-08 05:19] VITALS: BMI 28.2
[2019-11-08 05:26] LABS: Adenovirus F 40/41, stool Not Detected (NotDetected); Astrovirus Not Detected (NotDetected); Campylobacter Not Detected (NotDetected); Clostridium Difficile A/B, PCR Not Detected (NotDetected); Cryptosporidium Not Detected (NotDetected); Cyclospora Cayetanesis Not Detected (NotDetected); Entamoeba histolytica Not Detected (NotDetected); Enteroaggregative E coli Not Detected (NotDetected); Enteropathogenic E coli Not Detected (NotDetected); Enterotoxigenic E coli Not Detected (NotDetected); Giardia lamblia Not Detected (NotDetected); Norovirus Not Detected (NotDetected); Plesimonas Shigalloides, PCR Not Detected (NotDetected); Rotavirus A Not Detected (NotDetected); Salmonella, PCR Not Detected (NotDetected); Sapovirus Not Detected (NotDetected); Shiga-like toxin E coli Not Detected (NotDetected); Shigella Enterovasive E coli Not Detected (NotDetected); Vibrio Cholerae Not Detected (NotDetected); Vibrio, PCR Not Detected (NotDetected); Yersinia Entercolitica, PCR Not Detected (NotDetected)
--- NOTE | 2019-11-08 06:00 | CT_ITS ---
PROCEDURE: CT ABDOMEN PELVIS W CON CLINICAL INDICATION: ABDOMINAL PAIN VOMITING DIARRHEA , Right-sided diverticulitis follow-up COMPARISON: CT ABDOMEN PELVIS W CON from 10/31/2019 TECHNIQUE: IV Contrast: 75ML OPTIRAY 350 Oral Contrast 20ml Gastroview Axial images obtained with sagittal and coronal reformats. All CT scans at the facility use one or more dose reduction, viz: automated exposure control, ma/kV adjustment per patient size (including targeted exams where dose is matched to indication, i.e. head), or iterative reconstruction technique. FINDINGS: LOWER THORAX: Atelectatic changes are present in the left lung base. ABDOMEN & PELVIS: Sub cm isodense is present in the left hepatic lobe and may be due to small cyst. The liver is otherwise unremarkable. The gallbladder and spleen and adrenal glands and pancreas have an unremarkable appearance. There is mild thickening versus nondistention of the stomach. There is mild right hydronephrosis and hydroureter which has progressed in the interval. No definite ureteral calculus. There is mild prominence of the left renal pelvis not significantly changed. No intestinal obstruction or free air is evident. Unremarkable appendix. Previously noted right-sided diverticulitis has improved. There is no evidence of abscess. No free air apparent. Post hysterectomy change. There is an area of sclerosis involving the left ilium medially nonspecific measuring approximately 2 cm. There is some sub adjacent lucency along the superior aspect of this lesion. IMPRESSION: 1. Interval improvement in the inflammatory changes in the right pericolic gutter inferiorly adjacent to the cecum consistent with improvement in right-sided diverticulitis. 2. Mild right hydronephrosis and hydroureter. No definite ureteral calculus is evident. Distal ureteral obstruction is a consideration. Urinary tract infection or reflux could also cause this finding.. 3. Sclerotic and lucent lesion involves the left ilium. Suggest follow-up to confirm stability. 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 Bone scan may provide further evaluation to determine the activity of the lesion. Dictated by: Raghavendra Marshall MD 11/08/2019 06:48 Electronically signed by Raghavendra Marshall MD in [place] 11/08/2019 06:48
--- NOTE | 2019-11-08 06:32 | PC.NURSE ---
A&O X4. PT RESTED WELL THIS SHIFT WITH EYES CLOSED. UPON 0500 ROUNDS THIS AM PT STATED TO THIS RN THAT SHE WAS ABLE TO HAVE A BOWEL MOVEMENT. SPECIMEN WAS COLLECTED AND SENT TO LAB FOR TESTING. PENDING RESULTS. SINCE, PT REPORTS HAVING MULTIPLE LOOSE STOOLS. UPON INITIAL ASSESSMENT AT THE BEGINNING OF SHIFT PT ABDOMEN NOTED DISTENDED, SOFT UPON PALPATION AND TENDERNESS IN RLQ. DENIES NAUSEA AND VOMITING THIS SHIFT. ADMINISTERED MORPHINE PER MAR PER PT REQUEST ALONG WITH ZOFRAN FPR BACK PAIN RATING 5/10 ON PAIN SCALE. PT STATES SHE DOES NOT TOLERATE MORPHINE WELL WITHOUT RECEIVING AN ANTIEMETIC FIRST. UPON REASSESSMENT PT STATES ADEQUATE PAIN RELIEF. THIS AM ABDOMEN NOTED FURTHER DISTENDED, STILL SOFT UPON PALPATION, WITH AN INCREASE IN DAILY WEIGHT. BILATERAL LUNG SOUNDS NOTED CLEAR T/O UPON AUSCULTATION. RA TOLERATED WELL WITH NO C/O SOA. REFUSED TEDS. VSS. REMAINS SAFE. CALL LIGHT WITHIN REACH. WILL CONTINUE TO MONITOR.
[2019-11-08 07:43] VITALS: BP 110/64; PULSE 65; RESP 16; TEMP 36.7; O2SAT 96
[2019-11-08 08:00] VITALS: PULSE 68; O2SAT 96
--- NOTE | 2019-11-08 08:32 | HMH.GSPN ---
Subjective Narrative: Multiple loose stools overnight. Stool panel sent (results negative). She states that she is having less pain but feels somewhat more bloated . Exam Vital signs and Labs for Last 24 Hours: Temp Pulse Resp BP Pulse Ox 98.1 F 65 16 110/64 96 11/08/19 07:43 11/08/19 07:43 11/08/19 07:43 11/08/19 07:43 11/08/19 07:43 Laboratory Results - last 24 hr 11/08/19 04:47: Stl Aeromonas (PCR) Not detected, Stl C. cayetanensis PCR Not detected, Stool Rotavirus (PCR) Not detected, Stl Adenov F 40/41 PCR Not detected, Stool Astrovirus (PCR) Not detected, Stool Campylobacter PCR Not detected, Stl C.difficile Tox PCR Not detected, Stool Cryptosporidium PCR Not detected, Stl E.coli Shiga Tox PCR Not detected, Stool E coli O157 PCR Not detected, Stl Enterotoxigenic E PCR Not detected, Stool EPEC (PCR) Not detected, Stool EAEC (PCR) Not detected, Stl E. histolytica PCR Not detected, Stool Giardia Lamblia PCR Not detected, Stool Salmonella PCR Not detected, Stool Sapovirus (PCR) Not detected, Stl P. shigelloides PCR Not detected, Stl Shigella/EIEC PCR Not detected, St Y.enterocolitica PCR Not detected, Stool Vibrio (PCR) Not detected, Stl Vibrio cholerae PCR Not detected, Stl Norovirus GI/GII PCR Not detected I & O for Last 24 hours: Intake & Output 11/05/19 11/06/19 11/07/19 11/08/19 11:59 11:59 11:59 11:59 Intake Total 0 / 0 4115 / 4115 Output Total 600 / 600 Balance 0 / 0 3515 / 3515 Weight 147 lb 2 oz 153 lb 9 oz Radiology Reports for the Last 24 Hours: Morning repeat CT scan impression forwarded below. IMPRESSION: 1. Interval improvement in the inflammatory changes in the right pericolic gutter inferiorly adjacent to the cecum consistent with improvement in right-sided diverticulitis. 2. Mild right hydronephrosis and hydroureter. No definite ureteral calculus is evident. Distal ureteral obstruction is a consideration. Urinary tract infection or reflux could also cause this finding.. 3. Sclerotic and lucent lesion involves the left ilium. Suggest follow-up to confirm stability. 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 Bone scan may provide further evaluation to determine the activity of the lesion. - Constitutional no acute distress - *Routine Respiratory Exam Absent: respiratory distress - *Routine Cardiovascular Exam Present: RRR - *Routine Abdominal Exam Present: soft Progress Note: A&P (1) Vomiting and diarrhea Status: Acute Assessment and plan: Diarrhea panel negative Continue management as per primary service Okay from surgical standpoint to advance diet with ongoing follow-up Current Visit: Yes (2) Diverticulitis Status: Acute Assessment and plan: Seems to be improving clinically and radiographically Current Visit: No (3) Tobacco use disorder Status: Acute Current Visit: No (4) Anxiety Status: Chronic Current Visit: No
--- NOTE | 2019-11-08 08:55 | HMH.ACPN2 ---
Internal Medicine - PN: Subj *Date: 11/08/19 *Time: 08:56 Interval history: [age]-year-old female patient lying in bed resting quietly. She reports she is having less abdominal pain overall, but. Is reporting she is hungry and requesting diet still having pain in right lower quadrant. She does report she is more bloated today and has had multiple loose stools. Diarrhea panel results are negative Exam Vital signs and Labs for Last 24 Hours: Temp Pulse Resp BP Pulse Ox 98.1 F 65 16 110/64 96 11/08/19 07:43 11/08/19 07:43 11/08/19 07:43 11/08/19 07:43 11/08/19 07:43 Laboratory Results - last 24 hr 11/08/19 04:47: Stl Aeromonas (PCR) Not detected, Stl C. cayetanensis PCR Not detected, Stool Rotavirus (PCR) Not detected, Stl Adenov F 40/41 PCR Not detected, Stool Astrovirus (PCR) Not detected, Stool Campylobacter PCR Not detected, Stl C.difficile Tox PCR Not detected, Stool Cryptosporidium PCR Not detected, Stl E.coli Shiga Tox PCR Not detected, Stool E coli O157 PCR Not detected, Stl Enterotoxigenic E PCR Not detected, Stool EPEC (PCR) Not detected, Stool EAEC (PCR) Not detected, Stl E. histolytica PCR Not detected, Stool Giardia Lamblia PCR Not detected, Stool Salmonella PCR Not detected, Stool Sapovirus (PCR) Not detected, Stl P. shigelloides PCR Not detected, Stl Shigella/EIEC PCR Not detected, St Y.enterocolitica PCR Not detected, Stool Vibrio (PCR) Not detected, Stl Vibrio cholerae PCR Not detected, Stl Norovirus GI/GII PCR Not detected I & O for Last 24 hours: Intake & Output 11/05/19 11/06/19 11/07/19 11/08/19 23:59 23:59 23:59 23:59 Intake Total 2765 / 2765 1350 / 1350 Output Total 400 / 400 200 / 200 Balance 2365 / 2365 1150 / 1150 Weight 146 lb 6 oz 147 lb 11.355 oz 153 lb 9 oz - Constitutional no acute distress - *Routine HEENT Exam ENT: Present: mucous membranes moist - *Routine Neck Exam Present: full ROM, trachea midline. Absent: tracheal deviation - *Routine Respiratory Exam Present: CTA bilaterally. Absent: accessory muscle use - *Routine Cardiovascular Exam Present: RRR - *Routine Abdominal Exam Present: soft, normoactive bowel sounds, tenderness, distended - *Routine Extremities Exam Present: full ROM, pulses intact. Absent: calf tenderness - *Routine Skin Exam Present: intact, warm. Absent: erythema, jaundice - *Routine Neurological Exam Present: alert, oriented X3. Absent: pronator drift - Routine Psychiatric Exam Present: normal affect, normal thought process. Absent: visual hallucinations Assessment and Plan (1) Vomiting and diarrhea Current visit: Yes Status: Acute Category: Medical Code(s): R11.10 - Vomiting, unspecified; R19.7 - Diarrhea, unspecified (2) Diverticulitis Current visit: No Status: Acute Category: Medical Code(s): K57.92 - Diverticulitis of intestine, part unspecified, without perforation or abscess without bleeding (3) Tobacco use disorder Current visit: No Status: Acute Category: Medical Code(s): F17.200 - Nicotine dependence, unspecified, uncomplicated (4) Anxiety Current visit: No Status: Chronic Category: Medical Code(s): F41.9 - Anxiety disorder, unspecified - Assessment and plan all Dx Assessment and Plan for all problems:: Rounded with Dr. Granados, all orders per Dr. Granados 1. We will advance diet 2. Out of bed 3. Follow surgical recommendations 4. GI consult as outpatient 5. We will add Bentyl The patient's infection will respond to the chosen ABx?: Yes Is the patient receiving the right drug, dose, and route?: Yes Could a more targeted ABx be ordered?: No
[2019-11-08 15:40] VITALS: BP 138/65; PULSE 68; RESP 16; TEMP 37.1; O2SAT 97
--- NOTE | 2019-11-08 17:09 | PC.NURSE ---
Pt has complained of discomfort from having so much diarrhea as well as irritation from wiping. wipes provided. lung sounds are clear, bowel sounds are active. pt has notable abdominal distention. pt has has several liquid bm this shift. pcr is negative. pt has been compliant with care, has received pain meds twice this shift. states she wants to use as little as possible to avoid constipation. nad noted. pt has ambulated in the sarah prior to pain meds being given. no additional discomfort noted. will continue to monitor.
--- NOTE | 2019-11-08 18:42 | PC.NURSE ---
pt requests iv fluids be held for a short time. pt states she thinks the ivf might be causing some of her abd discomfort. pt agreed to have fluids restarted later in the night, if discomfort did not lessen with fluids being held. pt has had adequate po intake this shift
[2019-11-08 19:41] VITALS: BP 112/70; PULSE 56; RESP 20; TEMP 37.1; O2SAT 98
[2019-11-08 20:30] VITALS: PULSE 56; RESP 20; O2SAT 98
[2019-11-09 04:00] VITALS: BP 95/53; PULSE 57; RESP 20; TEMP 36.6; O2SAT 100
[2019-11-09 04:50] VITALS: BMI 27.8
--- NOTE | 2019-11-09 05:44 | PC.NURSE ---
shift summary, no reported diarrhea t/o this shift, pt ambulated around room, and slept well
--- NOTE | 2019-11-09 07:05 | PC.NURSE ---
pt requested fluids be stopped while she ate breakfast
[2019-11-09 07:18] LABS: Chloride 107 mmol/L (98-107); Sodium 138 mmol/L (136-145)
[2019-11-09 07:19] LABS: Potassium 3.8 mmoL/L (3.5-5.1)
[2019-11-09 07:22] LABS: Anion Gap 6.8 mEq/L (5-15); Blood Urea Nitrogen 15 mg/dl (7-17); Calcium 8.7 mg/dl (8.4-10.2); Carbon Dioxide 28 mmol/L (22.0-30.0); Creatinine Clearance Estimated 83 mL/min (50-200); Estimated Glomerular Filt Rate 67 ml/min (>60); GFR (African American) 81 ML/MIN (>60); Glucose 87 mg/dl (74-100)
[2019-11-09 07:26] LABS: Basophils # 0.1 K/mm3 (0-0.2); Basophils % 0.7 % (0.1-2.0); Eosinophils # 0.1 K/mm3 (0.0-0.4); Eosinophils % 1.1 % (0.1-12.0); Hematocrit 41.6 % (37.0-47.0); Hemoglobin 13.9 g/dL (12.2-16.2); Lymphocytes # 2.2 K/mm3 (0.7-4.5); Mean Corpuscular HGB Conc 33.5 g/dL (31.8-35.4); Mean Corpuscular Volume 89.7 fl (81-99); Mean Platelet Volume 9.2 fl (7.4-10.4); Monocytes # 0.5 K/mm3 (0.1-1.0); Monocytes % 5.3 % (1.7-9.3); Neutrophils # 5.9 K/mm3 (1.8-7.8); Platelet Count 201 K/mm3 (142-424); Red Blood Count 4.63 M/mm3 (4.20-5.40); Red Cell Distribution Width 12.9 % (11.5-17.5); White Blood Count 8.6 K/mm3 (4.8-10.8)
[2019-11-09 08:00] VITALS: BP 91/60; PULSE 60; RESP 18; TEMP 36.9; O2SAT 99
--- NOTE | 2019-11-09 08:29 | HMH.GSPN ---
Subjective Patient reports: feels better Narrative: She states that she is hoping to go home today . Exam Vital signs and Labs for Last 24 Hours: Temp Pulse Resp BP Pulse Ox 98.4 F 60 18 91/60 L 99 11/09/19 08:00 11/09/19 08:00 11/09/19 08:00 11/09/19 08:00 11/09/19 08:00 Laboratory Results - last 24 hr 11/09/19 06:58: WBC 8.6, RBC 4.63, Hgb 13.9, Hct 41.6, MCV 89.7, MCH 30.0, MCHC 33.5, RDW 12.9, Plt Count 201, MPV 9.2, Neut % (Auto) 68.0, Lymph % (Auto) 25.0, [place] % (Auto) 5.3, Eos % (Auto) 1.1, Baso % (Auto) 0.7, Neut # (Auto) 5.9, Lymph # (Auto) 2.2, [place] # (Auto) 0.5, Eos # (Auto) 0.1, Baso # (Auto) 0.1 11/09/19 06:58: Sodium 138, Potassium 3.8, Chloride 107, Carbon Dioxide 28, Anion Gap 6.8, BUN 15, Creatinine 0.90 D, Estimated Creat Clear 83, Estimated GFR 67, Est GFR ( Amer) 81 D, Glucose 87, Calcium 8.7 I & O for Last 24 hours: Intake & Output 11/06/19 11/07/19 11/08/19 11/09/19 11:59 11:59 11:59 11:59 Intake Total 0 / 0 4115 / 4115 2522 / 2522 Output Total 600 / 600 Balance 0 / 0 3515 / 3515 2522 / 2522 Weight 147 lb 2 oz 153 lb 9 oz 151 lb 6 oz - Constitutional no acute distress - *Routine Respiratory Exam Absent: respiratory distress - *Routine Cardiovascular Exam Present: RRR - *Routine Abdominal Exam Present: soft Comments: Some tenderness remains; however, this continues to slowly improve. Progress Note: A&P (1) Vomiting and diarrhea Status: Acute Assessment and plan: Continuing to slowly improve. Diarrhea panel negative. Management as per primary service Current Visit: Yes (2) Diverticulitis Status: Acute Assessment and plan: Symptomatically and radiographically improving. Afebrile with a normal white blood cell count. Okay from surgical standpoint for discharge home with close outpatient follow-up with Dr. Clark. Current Visit: No (3) Tobacco use disorder Status: Acute Current Visit: No (4) Anxiety Status: Chronic Current Visit: No
--- NOTE | 2019-11-09 13:12 | HMH.DCSUM ---
General - General Admission date:: 11/06/19 Discharge date: 11/09/19 HPI HPI: 49 yr female presented to ed with c/o nausea, vomiting and diarrhea. Pt stated she was just d/c from the hospital on thursday from diverticulitis and finished antibiotics on sat. pt since has had nausea, vomiting and diarrhea and unable keep anything down. pt states she called Dr. Dubois who told her to take a probiotic and hydrate with gatorade. pt stated in ed she feels dehydrated and isn't able to keep food down.Patient denies vomiting or diarrhea since admission. Patient states she does not have an appetite but will try to eat.Pt admitted consult surgery. Hospital Course Hospital Course: 49-year-old female patient lying quietly in bed reports she feels better and is questioning going home. Still reports some right lower quadrant abdominal tenderness reports she had 1 loose stool during the night and that her diarrhea is clearing up. 49 yr female presented to ed with c/o nausea, vomiting and diarrhea. Pt stated she was just d/c from the hospital on thursday from diverticulitis and finished antibiotics on sat. pt since has had nausea, vomiting and diarrhea and unable keep anything down. pt states she called Dr. Dubois who told her to take a probiotic and hydrate with gatorade. pt stated in ed she feels dehydrated and isn't able to keep food down.Patient denies vomiting or diarrhea since admission. Patient states she does not have an appetite but will try to eat.Pt admitted consult surgery. Gen Surg has seen and rec: Symptomatically and radiographically improving. Afebrile with a normal white blood cell count. Okay from surgical standpoint for discharge home with close outpatient follow-up with Dr. Clark. 11/07/19 Abd/pelvic CT: IMPRESSION: 1. Interval improvement in the inflammatory changes in the right pericolic gutter inferiorly adjacent to the cecum consistent with improvement in right-sided diverticulitis. 2. Mild right hydronephrosis and hydroureter. No definite ureteral calculus is evident. Distal ureteral obstruction is a consideration. Urinary tract infection or reflux could also cause this finding.. 3. Sclerotic and lucent lesion involves the left ilium. Suggest follow-up to confirm stability. 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 Bone scan may provide further evaluation to determine the activity of the lesion. Dictated by: Rolando, Lab work is been unremarkable and she has had a negative second diarrhea panel She has tolerated a regular lunch, denies N/V/D, or any increased abdominal pain. She is in agreement to be discharged home today on levofloxacin and Flagyl for diverticulitis, Bentyl for antispasmodic, and Ingram for pain Objective Vital signs: Temp Pulse Resp BP Pulse Ox 98.4 F 60 18 91/60 L 99 11/09/19 08:00 11/09/19 08:00 11/09/19 08:00 11/09/19 08:00 11/09/19 08:00 no acute distress - *Routine HEENT Exam ENT: Present: mucous membranes moist. Absent: sinus tenderness - *Routine Neck Exam Present: full ROM, trachea midline. Absent: tracheal deviation - *Routine Respiratory Exam Present: CTA bilaterally. Absent: accessory muscle use - *Routine Cardiovascular Exam Present: RRR - *Routine Abdominal Exam Present: soft, normoactive bowel sounds, tenderness Comments: RLQ tenderness - *Routine Extremities Exam Present: full ROM, pulses intact. Absent: calf tenderness - *Routine Skin Exam Present: intact, dry, warm. Absent: cyanosis - *Routine Neurological Exam Present: alert, oriented X3. Absent: altered mental status - Routine Psychiatric Exam Present: normal affect, normal thought process. Absent: visual hallucinations Results Labs on day of discharge: Labs from last 24 hours 11/09/19 11/09/19 06:58 06:58 WBC 8.6 RBC 4.63 Hgb 13.9 Hct 41.6 MCV 89.7 MCH 30.0 MCHC 33.5 RDW 12.9 Plt Count 201 MPV 9.2 Neut % (Auto)
--- NOTE | 2019-11-09 15:23 | HMH.PHAINT ---
DISCHARGE COUNSELING COMPLETED ON PATIENT. NEW PRESCRIPTIONS INCLUDE NORCO, FLAGYL, LEVAQUIN, AND BENTYAL. ALL NEW PRESCRIPTIONS WERE SENT TO [facility] [place]. PATIENT IS TO CONTINUE ALL OTHER HOME MEDICATIONS. REFILL WAS CALLED IN FOR DIAZEPAM. PATIENT VERBALIZED UNDERSTANDING AND HAD NO QUESTIONS AT THIS TIME. -RHODA ZAMUDIO, JUDYD
== END 2019-11-09 15:39 | disposition home or self-care (01) ==
LOC: ER 21:49 → 2ND 22:53
PROVIDERS: Nurse Practitioner Family; Admitting Provider Emergency Medicine; Emergency Provider Emergency Medicine; PCP Emergency Medicine; Visit Provider Emergency Medicine
DX: K57.32 Diverticulitis of large intestine without perforation or abscess without bleeding (principal); R11.10 Vomiting, unspecified; Z72.0 Tobacco use
CPT/HCPCS: 36415; 74021; 74177; 80048; 80053; 81001; 85025; 85651; 86140; 87507; 96365; 96375; 99284; G0378; J1956; J2405; Q9967

== ENCOUNTER → 2019-11-30 07:49 | Outpatient (CLI) | payer OTHER, SELFPAY ==
--- NOTE | 2019-11-30 07:50 | US_ITS ---
PROCEDURE: US GALLBLADDER CLINICAL INDICATION: RUQ Pain COMPARISON: No exams were available for comparison FINDINGS: Pancreas: Unremarkable/Not well seen Liver: Unremarkable. There is appropriate direction of blood flow within a non dilated portal vein. Right kidney: Unremarkable appearing. No hydronephrosis. Gallbladder: Small hyperechoic focus is present along the posterior wall the gallbladder at 3 mm and may be due to small polyp . No shadowing stones evident. Common bile duct is normal at 4 mm. No gallbladder wall thickening or pericholecystic fluid IMPRESSION: Small gallbladder polyps otherwise negative. No shadowing stones apparent. Dictated by: Raghavendra Marshall MD 11/30/2019 17:03 Electronically signed by Raghavendra Marshall MD in [place] 11/30/2019 17:03
== END ==
PROVIDERS: PCP Nurse Practitioner Family; Visit Provider Nurse Practitioner Family
DX: R10.11 Right upper quadrant pain (principal)
CPT/HCPCS: 76705

== ENCOUNTER → 2019-12-19 10:10 | Outpatient (CLI) | payer OTHER, SELFPAY ==
[2019-12-19 13:20] LABS: Coronavirus 19 IgG Antibody Negative (Negative); Coronavirus 19 IgM Antibody Negative (Negative)
== END ==
PROVIDERS: Visit Provider Surgery
DX: Z03.818 Encounter for observation for suspected exposure to other biological agents ruled out (principal); Z12.11 Encounter for screening for malignant neoplasm of colon
CPT/HCPCS: 36415; 86328

== ENCOUNTER 2019-12-20 06:10 | Day surgery (SDC) | payer OTHER, SELFPAY ==
[2019-12-16 15:54] VITALS: BMI 27.4
[2019-12-20 06:31] VITALS: BP 113/64; PULSE 56; RESP 18; TEMP 36.7; O2SAT 99
--- NOTE | 2019-12-20 07:19 | P.PN_ITS ---
[facility] Anesthesia Checklist - Structural Data Admitted From: Home Planned Operative Procedure/s: colonoscopy Consent for Planned Operative Procedure(s) Verified: Yes - Airway Assessment C-Spine Mobility Assessed: Yes TMJ Mobility Assessed: Yes Dentition: Good Dentition - Neurological Assessment Level of Consciousness: Awake, Alert, Appropriate - Anesthesia Plan Anesthesia Risk discussed: Yes Anesthesia Plan: Verified ASA Class: II Anesthesia Type: MAC [facility] History I have reviewed the patient's past medical history: Yes Medical History: Reports:: Anxiety, Depression, Gastroesophageal Reflux Disease(GERD), Migraine Denies:: Cancer, Diabetes Mellitus Type 1, Diabetes Mellitus Type 2, Internal Pacemaker, MRSA, Seizures *Have you ever received a pneumonia vaccine?: No *Have you received a flu vaccine this season?: No Other Medical History: Reports: Anemia, Arthritis, Sinus Problems Anesthesia experience/problems:: none Other Surgeries: Yes: Colonoscopy, , Hysterectomy-Total. No: Pacemaker Amputation: No Fractures: No - *Social History Smoking Status: Current every day smoker Tobacco Type: cigarettes # Packs/Day (cigarettes): 1 Alcohol Intake: current Alcohol Intake Frequency:: holidays/special occasions only Substance Use Type: denies use *Occupational Status:: employed Housing: house Household Members: significant other *Travel in the last 8 weeks: None - Psychiatric History Pschychiatric History:: Reports:: Anxiety, Depression Family Hx:: Asthma, Cancer, Diabetes, Heart Attack, Hypertension, Stroke
[2019-12-20 07:31] VITALS: O2SAT 97
--- NOTE | 2019-12-20 08:10 | P.PCN_ITS ---
- Procedure: Date: 12/20/19 Procedure Performed:: Colonoscopy Indications:: Patient presents for colonoscopy. She is a 49-year-old female who had a history of diverticulitis on the left several years ago which was managed nonoperatively at a different institution. She does state that she had had a colonoscopy at that time. She presented to the emergency department with right sided abdominal pain and had a CT scan performed which revealed findings consistent with right- sided diverticulitis with a normal appendix. She was hospitalized on 10/31/2019 until 11/02/2019. Her CT scan at that time revealed subtle findings consistent with uncomplicated diverticulitis. She was readmitted for ongoing recurrent symptoms and hospitalized from 11/06/2019 until 11/09/2019. During that hospitalization she had a repeat CT scan which showed improvement in the inflammatory changes of uncomplicated diverticulitis. She followed up with her primary care provider. Apparently an ultrasound of the gallbladder was ordered. She does state that she has continued minor discomfort but her pain is improv ed. She does have looser stools than normal but they are not as loose as when she was admitted. She describes diminished appetite. She has diminished energy level. She describes postprandial bloating and abdominal swelling. I had a brief discussion with her regarding that she may require gastroenterology evaluation given her symptomatology. However, regardless colonoscopy would be indicated. I will plan to proceed with colonoscopy as her next step with care taken to evaluate the right colon. Performing Provider:: Raymundo Clark MD Referring Provider:: Charlie Granados MD Sedation:: Propofol Procedure:: Patient was taken to endoscopy procedure room. She was positioned in a lateral decubitus position. Adequate intravenous sedation was achieved with anesthesia titration of propofol. Variable stiffness Olympus colonoscope was inserted via the anus and advanced to the cecum. Colonic preparation was good. Ileocecal valve and appendiceal orifice were clearly identified. Colonoscope was advanced a short distance into the terminal ileum which appeared grossly normal. Neola noscope was withdrawn through the colon with careful surveillance. She did have some degree of pandiverticulosis with most diverticuli in the sigmoid colon region. In the cecum there was a diverticulum with impacted stool but no evidence of inflammation. The stool ultimately was able to be flushed out of the diverticulum. As the colonoscope was withdrawn several small polyps were encountered and removed by either cold biopsy or cold snare. Please see findings for details. Within the rectum retroflexion was performed which revealed no evidence of any pathologic internal hemorrhoids. Colonoscope was withdrawn. Findings:: Pandiverticulosis, no evidence of any active diverticulitis Ascending colon polyp removed with biopsy forceps Transverse colon polyp removed with cold snare Rectosigmoid polyps, 2 of which appeared adenomatous, removed with snare and one appeared hyperplastic removed with biopsy Recommendations:: Follow-up on histopathology. Likely repeat colonoscopy 3 to 5 years pending the pathology. She has had a gallbladder ultrasound performed. Complications:: None immediately apparent Estimated blood obtained (mL): 2
[2019-12-20 08:13] VITALS: BP 94/66; PULSE 71; RESP 16; TEMP 36.1; O2SAT 94
[2019-12-20 08:30] VITALS: BP 99/63; PULSE 54; RESP 16; O2SAT 100
[2019-12-20 08:45] VITALS: BP 125/91; PULSE 45; RESP 16; O2SAT 97
== END 2019-12-20 08:45 | disposition home or self-care (01) ==
LOC: OUTP 06:12
PROVIDERS: PCP Nurse Practitioner Family; Visit Provider Surgery
PROC: 0DJD8ZZ Inspection of Lower Intestinal Tract, Via Natural or Artificial Opening Endoscopic (ICD-10-PCS; CPT 45385; principal; 2019-12-20 07:30)
DX: K57.30 Diverticulosis of large intestine without perforation or abscess without bleeding (principal); K63.5 Polyp of colon; F41.9 Anxiety disorder, unspecified; F32.9 Major depressive disorder, single episode, unspecified; K21.9 Gastro-esophageal reflux disease without esophagitis; G43.909 Migraine, unspecified, not intractable, without status migrainosus; D64.9 Anemia, unspecified; M19.90 Unspecified osteoarthritis, unspecified site; Z90.710 Acquired absence of both cervix and uterus; Z72.0 Tobacco use; Z82.3 Family history of stroke; Z82.49 Family history of ischemic heart disease and other diseases of the circulatory system
CPT/HCPCS: 45385; 45380; J2704

== ENCOUNTER → 2020-12-07 09:18 | Outpatient (CLI) | payer OTHER, MEDICAID, SELFPAY ==
--- NOTE | 2020-12-07 09:22 | XR_ITS ---
PROCEDURE: XR HIP RT 2-3V W/PELVIS CLINICAL INDICATION: R Hip Pain COMPARISON: CT CT ABDOMEN PELVIS W CON from 11/08/2019 FINDINGS: No fracture or dislocation is evident. No significant degenerative change. No lytic or blastic change. Unremarkable soft tissues. An AP view of the pelvis shows some mild sclerosis of the left SI joint superiorly. IMPRESSION: Negative right hip Mild sacroiliitis on the left Dictated by: Raghavendra Marshall MD 12/07/2020 11:18 Raghavendra Marshall MD in [place] 12/07/2020 11:18
== END ==
PROVIDERS: PCP Nurse Practitioner Family; Visit Provider Nurse Practitioner Family
DX: M25.551 Pain in right hip (principal)
CPT/HCPCS: 73502

== ENCOUNTER → 2021-01-07 10:40 | Outpatient (CLI) | payer MEDICAID, SELFPAY | PROVIDERS: PCP Nurse Practitioner Family; Referring Provider Nurse Practitioner Family; Visit Provider Nurse Practitioner Family | DX: Z20.822 Contact with and (suspected) exposure to COVID-19 (principal); U07.1 COVID-19 | CPT/HCPCS: U0003 ==

== ENCOUNTER → 2021-01-29 09:48 | Outpatient (CLI) | payer OTHER, MEDICAID, SELFPAY | PROVIDERS: Visit Provider Nurse Practitioner Family | DX: Z01.10 Encounter for examination of ears and hearing without abnormal findings (principal) ==

== ENCOUNTER → 2021-04-17 14:25 | Outpatient (CLI) | payer MEDICAID, SELFPAY | PROVIDERS: Visit Provider Nurse Practitioner Family | DX: L02.224 Furuncle of groin (principal); B99.9 Unspecified infectious disease | CPT/HCPCS: 87070; 87077; 87186; 87205 ==

== ENCOUNTER → 2021-06-10 08:01 | Outpatient (CLI) | payer MEDICAID, SELFPAY | PROVIDERS: Visit Provider Nurse Practitioner | DX: Z20.822 Contact with and (suspected) exposure to COVID-19 (principal) | CPT/HCPCS: C9803; U0003; U0005 ==

== ENCOUNTER → 2021-06-11 22:36 | Outpatient (CLI) | payer MEDICAID, SELFPAY ==
[2021-06-11 22:39] LABS: Adenovirus,PCR Not Detected (NotDetected); Bordetella Pertussis Not Detected (NotDetected); Chlamydophila Pneumoniae, PCR Not Detected (NotDetected); Coronavirus 19, PCR Not Detected (NotDetected); Coronavirus 229E Not Detected (NotDetected); Coronavirus NL63 Not Detected (NotDetected); Coronavirus OC43 Not Detected (NotDetected); Coronovirus HKU1,PCR Not Detected (NotDetected); Human Metapneumovirus Not Detected (NotDetected); Influenza A, PCR Not Detected (NotDetected); Influenza AH1, 2009 Not Detected (NotDetected); Influenza AH1, PCR Not Detected (NotDetected); Influenza B, PCR Not Detected (NotDetected); Mycoplasma Pneumoniae, PCR Not Detected (NotDetected); Parainfluenza 1, PCR Not Detected (NotDetected); Parainfluenza 2, PCR Not Detected (NotDetected); Parainfluenza 3, PCR Not Detected (NotDetected); Parainfluenza 4, PCR Not Detected (NotDetected); Respiratory Syncytial Virus Not Detected (NotDetected); Rhinovirus/Enterovirus Not Detected (NotDetected)
[2021-06-12 08:43] LABS: Influenza AH3,PCR Detected (NotDetected)
== END ==
PROVIDERS: Visit Provider Physician Assistant
DX: Z20.822 Contact with and (suspected) exposure to COVID-19 (principal); J40 Bronchitis, not specified as acute or chronic; J11.1 Influenza due to unidentified influenza virus with other respiratory manifestations
CPT/HCPCS: 87581; 87632; 87798; C9803; U0003; U0005

== ENCOUNTER → 2021-11-18 15:41 | Outpatient (CLI) | payer MEDICAID, SELFPAY ==
--- NOTE | 2021-11-18 15:41 | MR_ITS ---
PROCEDURE INFORMATION: Exam: MR Right Lower Extremity Joint Without Contrast, Knee Exam date and time: 11/18/2021 4:00 PM Age: 51 years old Clinical indication: Pain; Knee; Right; Additional info: R knee pain. Right knee pain with locking up [id number]. Knee swelling. No injury or trauma. TECHNIQUE: Imaging protocol: Magnetic resonance imaging of the Right lower extremity joint without contrast. Exam focused on the knee. COMPARISON: No relevant prior studies available. FINDINGS: Bones/joints: No acute fracture. No dislocation. Mild signal changes/minimal surface fibrillation of cartilage lining patella. Fluid: No significant joint effusion. No significant Elizondo's cyst. Medial meniscus: Intrasubstance signal abnormality. No definite tear. Lateral meniscus: No definite tear. Anterior cruciate ligament: Intact. Posterior cruciate ligament: Intact. Medial capsule and supporting structures: Intact. Lateral capsule and supporting structures: Intact. Extensor mechanism of knee: Intact. Mild signal changes within distal quadriceps tendon. Mild signal changes within distal patellar tendon. Muscles: Unremarkable. Soft tissues: Unremarkable. IMPRESSION: 1. Mild quadriceps and patellar tendinosis. 2. Mild patellar chondromalacia.
== END ==
PROVIDERS: PCP Nurse Practitioner Family; Visit Provider Nurse Practitioner Family
DX: M25.561 Pain in right knee (principal)
CPT/HCPCS: 73721

== ENCOUNTER 2021-11-22 11:30 | Outpatient (RCR) | payer MEDICAID, SELFPAY | END 2021-11-22 12:30 | disposition home or self-care (01) | LOC: PT 11:30 | PROVIDERS: Visit Provider Orthopaedic Surgery | DX: M25.561 Pain in right knee (principal) | CPT/HCPCS: 97760 ==

== ENCOUNTER 2021-12-03 17:00 | Outpatient (RCR) | payer MEDICAID, SELFPAY ==
--- NOTE | 2021-11-20 18:22 | HMH.PTOPEV ---
PT Outpatient Evaluation Rehab PT Outpatient Evaluation Start: 11/20/21 17:10 Freq: Status: Active Protocol: Document 11/20/21 17:10 JUDY (Rec: 11/20/21 18:21 JUDY [id number]) Electronically Signed By Aracelis Scotterlin, JORDY 11/20/21 17:10 Outpatient Therapy Subjective History Subjective History Pt is a 51 y/o female that reports chronic right knee pain for years. Pt states recent worsening of pain and locking while attempting to go up stairs on her front porch almost causing her to fall. Pt reports she had an MRI a couple days ago and gets the results from her doctor tomorrow. The MRI was performed at [facility] on 11/18/21 showing mild quadriceps and patellar tendinosis & mild patellar chondromalacia. Pt reports her pain is at the front of the knee around the knee cap and the back of the knee. Pt states she also has intermittent tingling around the knee cap but denies paresthesia in the hip or ankle/foot. 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 Pt also states the knee locks when going to stand after sitting for prolonged periods and going up /down stairs. Pt denies falls within the past year or change in balance. Pt reports she had steroid injections years ago and can't remember if it helped. She reports her knees used to hold fluid and seems like it swells at the end of the day. Pt reports some difficulty sleeping due to knee pain with report of ~6 hours each night. Occupation: [employer] Complaint Pain,Stiff,Clicks,Catches/ Locks Symptom Type
== END 2021-12-03 17:05 | disposition home or self-care (01) ==
LOC: PT 17:00
PROVIDERS: PCP Nurse Practitioner Family; Visit Provider Nurse Practitioner Family
DX: M25.561 Pain in right knee (principal)
CPT/HCPCS: 97010; 97014; 97110; 97140; 97163; 97530; 97535; G0283

== ENCOUNTER → 2021-12-16 10:32 | Outpatient (CLI) | payer BC, MEDICAID, SELFPAY ==
[2021-12-16 10:44] LABS: Microscopic, Urine URINE MICROSCOPIC (MICROSCOPIC)
--- NOTE | 2021-12-16 10:44 | XR_ITS ---
FINAL REPORT CLINICAL HISTORY: vomiting, rectal bleeding COMPARISON: 11/06/2019 FINDINGS: A PA view of the chest was obtained. The cardiac and mediastinal silhouettes are within normal limits. There are new, right greater than left, basilar opacities could represent developing pneumonia. There is no free air beneath the diaphragm. Upright and supine views of the abdomen reveal a nonspecific but nonobstructive bowel gas pattern. There is no evidence of small bowel obstruction. There is no change in pelvic calcifications likely representing phleboliths. No acute osseous abnormalities identified. IMPRESSION: Right greater than left basilar opacities could represent developing pneumonia. Nonspecific but nonobstructive bowel gas pattern. Reviewed, Interpreted and Dictated by Alta Dangelo MD Transcribed by Bobby Sorto Authenticated and [facility]
[2021-12-16 11:03] LABS: Appearance,Urine CLEAR (Clear); Basophils # 0.1 K/mm3 (0-0.2); Basophils % 0.8 % (0.1-2.0); Bilirubin,Urine Negative (Negative); Blood, Urine 3+ (Negative); Color,Urine YELLOW (Yellow); Eosinophils # 0.1 K/mm3 (0.0-0.4); Eosinophils % 1.4 % (0.1-12.0); Glucose,Urine (UA) Negative (Negative); Hematocrit 43.1 % (37.0-47.0); Hemoglobin 14.8 g/dL (12.2-16.2); Ketones,Urine Negative (Negative); Leukocyte Esterase,Urine Negative (Negative); Lymphocytes # 2.2 K/mm3 (0.7-4.5); Lymphocytes % 23.6 % (10-50); Mean Corpuscular HGB Conc 34.3 g/dL (31.8-35.4); Mean Corpuscular Hemoglobin 29.2 pg (27.0-31.2); Mean Corpuscular Volume 85.2 fl (81-99); Monocytes # 0.4 K/mm3 (0.1-1.0); Monocytes % 4.5 % (1.7-9.3); Neutrophils # 6.4 K/mm3 (1.8-7.8); Neutrophils % 69.6 % (37.0-80.0); Nitrate,Urine Negative (Negative); Platelet Count 214 K/mm3 (142-424); Protein,Urine Negative (Negative); Red Blood Count 5.05 M/mm3 (4.20-5.40); Red Cell Distribution Width 12.4 % (11.5-17.5); Specific Gravity, Urine 1.025 (1.005-1.030); Urobilinogen,Urine 0.2 EU/dl (0.2); White Blood Count 9.2 K/mm3 (4.8-10.8)
[2021-12-16 11:19] LABS: Chloride 109 mmol/L (98-107); Potassium 3.6 mmoL/L (3.5-5.1); Sodium 143 mmol/L (136-145)
[2021-12-16 11:21] LABS: Amylase 71 U/L (30-110); Blood Urea Nitrogen 16 mg/dl (7-17); Estimated Glomerular Filt Rate 89 ml/min (>60); GFR (African American) 107 ML/MIN (>60)
[2021-12-16 11:22] LABS: Alanine Aminotransferase 17 U/L (12-78); Albumin Level 4.2 g/dl (3.5-5.0); Albumin/Globulin Ratio 1.4 (1.1-1.8); Alkaline Phosphatase 102 U/L (38-126); Anion Gap 11.6 mEq/L (5-15); Aspartate Amino Transferase 30 U/L (14-36); Bacteria,Urine Trace /lpf; Bilirubin,Total 0.4 mg/dl (0.2-1.3); Carbon Dioxide 26 mmol/L (22.0-30.0); Lipase 58 U/L (23-300); Squamous Epithelial Cell,Urine Occasional #/hpf (0-5); Total Protein,Serum 7.2 g/dl (6.3-8.2)
[2021-12-16 11:28] LABS: Calcium 9.6 mg/dl (8.4-10.2); Glucose 99 mg/dl (74-100)
[2021-12-16 11:53] LABS: Thyroid Stimulating Hormone 2.31 uIU/mL (0.465-4.68)
== END ==
PROVIDERS: Visit Provider Physician Assistant
DX: Z20.822 Contact with and (suspected) exposure to COVID-19 (principal); K59.00 Constipation, unspecified; R11.10 Vomiting, unspecified; R68.81 Early satiety
CPT/HCPCS: 36415; 74021; 80053; 81001; 82150; 83690; 84443; 85025; 87086; C9803; U0003; U0005

== ENCOUNTER → 2022-01-01 06:43 | Outpatient (CLI) | payer BC, MEDICAID, SELFPAY ==
--- NOTE | 2022-01-01 06:44 | CT_ITS ---
FINAL REPORT TECHNIQUE: Axial images through the abdomen and pelvis were performed without contrast. This study was performed with techniques to keep radiation doses as low as reasonably achievable, (ALARA). Individualized dose reduction techniques using automated exposure control or adjustment of mA and/or kV according to the patient's size were employed. CLINICAL HISTORY: bloating, weight gain, early satiety, obstipation FINDINGS: ABDOMEN: There is mild bibasilar atelectasis. The heart size is normal. Limited images of the liver are unremarkable. The gallbladder is present. The spleen is normal. No adrenal mass is identified. The aorta is normal in caliber. There is no significant free fluid or adenopathy. There is no nephrolithiasis. There is no hydronephrosis. PELVIS: The appendix is unremarkable. There is widespread diverticulosis without evidence of diverticulitis. The patient is status post hysterectomy. There is a sclerotic focus in the medial left iliac bone of uncertain etiology, may represent a bone island. The urinary bladder is unremarkable. There is no significant free fluid or adenopathy. IMPRESSION: Diverticulosis without evidence of diverticulitis. Reviewed, Interpreted and Dictated by Raymundo Trinidad III, MD Transcribed by Bess Cid Authenticated and [facility]
== END ==
PROVIDERS: PCP Nurse Practitioner Family; Visit Provider Physician Assistant
DX: R68.81 Early satiety (principal)
CPT/HCPCS: 74176

== ENCOUNTER → 2022-01-07 17:22 | Outpatient (CLI) | payer BC, MEDICAID, SELFPAY ==
[2022-01-07 18:02] LABS: Urine Pregnancy, HCG Qual. Negative (Negative)
== END ==
PROVIDERS: PCP Nurse Practitioner Family; Visit Provider Internal Medicine Gastroenterology
DX: Z01.818 Encounter for other preprocedural examination (principal); Z20.822 Contact with and (suspected) exposure to COVID-19; Z13.810 Encounter for screening for upper gastrointestinal disorder; Z12.11 Encounter for screening for malignant neoplasm of colon
CPT/HCPCS: 81025; C9803; U0003; U0005

== ENCOUNTER 2022-01-09 08:18 | Day surgery (SDC) | payer BC, MEDICAID, SELFPAY ==
[2022-01-07 10:47] VITALS: BMI 29.9
[2022-01-09] VITALS (7 sets, daily range): BP systolic 102–119; BP diastolic 66–75; PULSE 56–85; RESP 16–18; TEMP 36.2–36.9; O2SAT 97–100
--- NOTE | 2022-01-09 09:26 | HMH.ANESCL ---
[facility] Anesthesia Checklist - Patient Identification Patient Identification: Arm Band - Structural Data Admitted From: Home Planned Operative Procedure/s: egd/colonoscopy Consent for Planned Operative Procedure(s) Verified: Yes Verified Documents: Surgical Consent, History and Physical - Additional verifications Anesthesia Reactions: No - Airway Assessment C-Spine Mobility Assessed: Yes (mp2) TMJ Mobility Assessed: Yes Dentition: Good Dentition - Neurological Assessment Level of Consciousness: Awake, Alert - Anesthesia Plan Anesthesia Risk discussed: Yes Anesthesia Plan: Verified ASA Class: II Anesthesia Type: MAC [facility] History I have reviewed the patient's past medical history: Yes Medical History: Reports:: Anxiety, Depression, Gastroesophageal Reflux Disease(GERD), Migraine Denies:: Cancer, Diabetes Mellitus Type 1, Diabetes Mellitus Type 2, Internal Pacemaker, MRSA, Seizures *Have you ever received a pneumonia vaccine?: No *Have you received a flu vaccine this season?: No Other Medical History: Reports: Anemia, Arthritis, Sinus Problems Anesthesia experience/problems:: nac Other Surgeries: Yes: Colonoscopy, , Hysterectomy-Total. No: Pacemaker Amputation: No Fractures: No - *Social History Last grade of school completed: High school graduate Smoking Status: Current every day smoker Tobacco Type: cigarettes # Packs/Day (cigarettes): 1 Alcohol Intake: current Alcohol Intake Frequency:: holidays/special occasions only Substance Use Type: denies use *Occupational Status:: employed Housing: house Household Members: significant other *Travel in the last 8 weeks: None - Psychiatric History Pschychiatric History:: Reports:: Anxiety, Depression Family Hx:: Cancer
--- NOTE | 2022-01-09 09:47 | HMH.SCOPE ---
- Procedure: Date: 01/09/22 Patient Date of :: 1970 Procedure Performed:: EGD & bx Indications:: Abdominal pain, bloating, GERD Performing Provider:: Rosangela Fernandez MD Referring Provider:: Niecy Steele PA-C Sedation:: Propofol Procedure:: The gastroscope was gently passed through the incisoral orifice into the oral cavity and under direct visualization the esophagus was intubated. The endoscope was passed down the esophagus, through the stomach, and into the duodenum. Color, texture, mucosa, and anatomy of the esophagus, stomach, and duodenum were carefully examined with the scope. Findings:: Oropharynx: normal Esophagus: Ridges and rings suggestive of eosinophilic esophagitis, biopsies obtained EG Junction: intact at 40 cm Cardia: normal Fundus: normal Body: normal Antrum: normal Duodenal bulb: normal Duodenum (second and third portion): normal Impression: GERD Possible eosinophilic esophagitis Specimens:: Esophageal samples Recommendations:: PPI therapy, await biopsy results Complications:: None Estimated blood obtained (mL): 0
--- NOTE | 2022-01-09 09:50 | HMH.SCOPE ---
- Procedure: Date: 01/09/22 Patient Date of :: 1970 Procedure Performed:: Diagnostic colonoscopy Indications:: Abdominal pain, bloating, rectal bleeding Performing Provider:: Rosangela Fernandez MD Referring Provider:: Niecy Steele PA-C Sedation:: Propofol Procedure:: After placing the patient in the left lateral decubitus position, the colonoscopy was gently inserted into the rectum and under direct visualization advanced to the cecum which was identified by transillumination in the right lower quadrant, identification of the ileocecal valve, appendiceal orifice, and cecal strap. Color, texture, mucosa, and anatomy of the colon were carefully examined with the scope. Findings:: Anal canal: normal Rectum: normal, hemorrhoids Sigmoid colon: normal without polyps or inflammatory changes, few scattered diverticuli Descending colon: normal without polyps or inflammatory changes Splenic flexure: normal Transverse colon: normal without polyps or inflammatory changes Hepatic flexure: normal Ascending colon: normal without polyps or inflammatory changes Cecum: normal Terminal ileum: not visualized Impression: Scattered diverticuli with internal hemorrhoids Recommendations:: Repeat exam in about TEN years or so, sooner if clinically indicated. Complications:: None Estimated blood obtained (mL): 0
--- NOTE | 2022-01-09 11:04 | SUR.PHASEII ---
0950- [employer]- reported that patients left eye was red in preop and that she was having contact issues and couldnt get that contact out. 1010-Patient stated that a nurse in Preop got the contact out. Patient instructed to go to the vision center today and get eye checked. Patients friend called and made appt for today @ 1120am
== END 2022-01-09 10:30 | disposition home or self-care (01) ==
LOC: OUTP 08:19
PROVIDERS: PCP Nurse Practitioner Family; Visit Provider Internal Medicine Gastroenterology
PROC: 0DJ08ZZ Inspection of Upper Intestinal Tract, Via Natural or Artificial Opening Endoscopic (ICD-10-PCS; CPT 43235; principal; 2022-01-09 09:30)
DX: R14.0 Abdominal distension (gaseous) (principal); R10.9 Unspecified abdominal pain; K64.8 Other hemorrhoids; K21.00 Gastro-esophageal reflux disease with esophagitis, without bleeding; Z72.0 Tobacco use
CPT/HCPCS: 43239; 45378

== ENCOUNTER 2022-05-07 12:15 | Emergency (ER) | payer BC, MEDICAID, SELFPAY ==
[2022-05-07 12:15] VITALS: BP 131/72; PULSE 77; RESP 18; TEMP 36.6; O2SAT 100; BMI 28.3
[2022-05-07 12:30] VITALS: BP 124/80; PULSE 79; O2SAT 99
[2022-05-07 12:36] LABS: Microscopic, Urine URINE MICROSCOPIC (MICROSCOPIC)
[2022-05-07 12:39] LABS: Appearance,Urine CLEAR (Clear); Bilirubin,Urine Negative (Negative); Blood, Urine 1+ (Negative); Color,Urine YELLOW (Yellow); Glucose,Urine (UA) Negative (Negative); Ketones,Urine Negative (Negative); Leukocyte Esterase,Urine Negative (Negative); Nitrate,Urine Negative (Negative); Protein,Urine Negative (Negative); Specific Gravity, Urine >= 1.030 (1.005-1.030); Urobilinogen,Urine 0.2 EU/dl (0.2)
--- NOTE | 2022-05-07 12:39 | PC.NURSE ---
DR. MAJANO AT BEDSIDE
--- NOTE | 2022-05-07 12:45 | CT_ITS ---
FINAL REPORT CLINICAL HISTORY: concern for nephrolitiasis (left), pain in left side of abdomen that radiates to left side of back COMPARISON: January 01, 2022 FINDINGS: Axial CT images of the abdomen and pelvis were obtained without intravenous contrast. Coronal reformatted images were also obtained.This study was performed with techniques to keep radiation doses as low as reasonably achievable (ALARA). Individualized dose reduction techniques using automated exposure control or adjustment of mA and/or kV according to the patient's size were employed. Abdomen: There is mild atelectasis or scarring in the lung bases. There is an 8 mm mass in the mid right kidney which cannot be accurately characterized without contrast but may represent a cyst. There is a less than 3 mm nonobstructing left renal stone. There is no hydronephrosis. The gallbladder is present. The liver, spleen and pancreas have an unremarkable, unenhanced appearance. No mass or adenopathy is seen. No inflammatory process is identified. There is a small umbilical hernia containing fat. Pelvis: The appendix is normal. There is right hydroureter without evidence of ureteral stone. The patient is status post hysterectomy. No mass or abnormal fluid collection is identified. There is a stable sclerotic focus in the medial left iliac bone. IMPRESSION: Less than 3 mm nonobstructing left renal stone. 8 mm mass in the mid right kidney which cannot be accurately characterized without contrast but may represent a cyst. Right hydroureter without evidence of renal stone. Reviewed, Interpreted and Dictated by Raymundo Trinidad III, MD Transcribed by Corrine Hodges Authenticated and [facility]
[2022-05-07 12:50] LABS: Bacteria,Urine Trace /lpf; WBC,Urine Occasional #/hpf (0-3)
--- NOTE | 2022-05-07 13:13 | PC.NURSE ---
attempted multi attempts on pt, no success at this. US guided attempted by another staff nurse, no success at this time.
--- NOTE | 2022-05-07 13:25 | PC.NURSE ---
PT TO CT
[2022-05-07 13:49] VITALS: BP 113/45; PULSE 59; O2SAT 100
[2022-05-07 13:58] LABS: Chloride 105 mmol/L (98-107)
[2022-05-07 13:59] LABS: Potassium 3.7 mmoL/L (3.5-5.1); Sodium 140 mmol/L (136-145)
[2022-05-07 14:01] LABS: Alanine Aminotransferase 26 U/L (12-78); Alkaline Phosphatase 126 U/L (38-126); Anion Gap 9.7 mEq/L (5-15); Aspartate Amino Transferase 33 U/L (14-36); Bilirubin,Total 0.3 mg/dl (0.2-1.3); Blood Urea Nitrogen 15 mg/dl (7-17); Carbon Dioxide 29 mmol/L (22.0-30.0); Creatinine Clearance Estimated 107 mL/min (50-200); Estimated Glomerular Filt Rate 89 ml/min (>60); GFR (African American) 107 ML/MIN (>60)
[2022-05-07 14:02] LABS: Albumin Level 4.6 g/dl (3.5-5.0); Albumin/Globulin Ratio 1.5 (1.1-1.8); Calcium 9.6 mg/dl (8.4-10.2); Globulin 3.1 g/dL (1.3-3.2); Glucose 83 mg/dl (74-100); Total Protein,Serum 7.7 g/dl (6.3-8.2)
[2022-05-07 14:05] LABS: Basophils # 0.1 K/mm3 (0-0.2); Basophils % 1.4 % (0.1-2.0); Eosinophils # 0.3 K/mm3 (0.0-0.4); Eosinophils % 3.1 % (0.1-12.0); Hematocrit 46.5 % (37.0-47.0); Hemoglobin 15.4 g/dL (12.2-16.2); Lymphocytes # 2.5 K/mm3 (0.7-4.5); Lymphocytes % 27.7 % (10-50); Mean Corpuscular HGB Conc 33.2 g/dL (31.8-35.4); Mean Corpuscular Hemoglobin 28.7 pg (27.0-31.2); Mean Corpuscular Volume 86.4 fl (81-99); Mean Platelet Volume 8.8 fl (7.4-10.4); Monocytes # 0.5 K/mm3 (0.1-1.0); Monocytes % 5.1 % (1.7-9.3); Neutrophils # 5.6 K/mm3 (1.8-7.8); Neutrophils % 62.7 % (37.0-80.0); Platelet Count 238 K/mm3 (142-424); Red Blood Count 5.39 M/mm3 (4.20-5.40); White Blood Count 8.9 K/mm3 (4.8-10.8)
[2022-05-07 14:07] LABS: C-Reactive Protein 3.1 mg/L (0-4)
[2022-05-07 14:30] VITALS: BP 98/59; PULSE 67; O2SAT 98
--- NOTE | 2022-05-07 14:31 | HMH.EDGENADL ---
Discharge Plan Disposition Patient Disposition: Home, Self-Care Condition: Fair Prescriptions Prescriptions: New tamsulosin [Flomax] 0.4 mg capsule 0.4 mg PO Q24H Qty: 14 0RF ketorolac 10 mg tablet 10 mg PO Q8H 5 Days Qty: 15 0RF hydrocodone-acetaminophen 5-300 mg tablet 1 tab PO Q8H PRN (Reason: pain) Qty: 7 0RF No Action diazepam 5 mg tablet 5 mg PO BID Qty: 60 3RF albuterol sulfate 90 mcg/actuation HFA aerosol inhaler 2 puff IH Q6H Qty: 6.7 2RF Rx Instructions: administer with spacer cariprazine 1.5 mg capsule 1.5 mg PO DAILY Qty: 90 0RF fluticasone propionate 50 mcg/actuation spray,suspension 1 spray NS DAILY Qty: 16 0RF Rx Instructions: administer into each nostril montelukast 10 mg tablet 10 mg PO DAILY Qty: 90 0RF ondansetron 8 mg tablet,disintegrating 8 mg PO Q8H PRN (Reason: nausea and vomiting) Qty: 30 1RF pantoprazole 40 mg tablet,delayed release (DR/EC) 40 mg PO DAILY Qty: 90 3RF tramadol 50 mg tablet 50 mg PO Q8H PRN (Reason: pain) Qty: 14 0RF loratadine [Claritin] 10 mg tablet 10 mg PO DAILY Qty: 30 2RF hydroxyzine pamoate 25 mg capsule 25 mg PO TID PRN (Reason: Anxiety) Qty: 90 1RF ibuprofen 800 MG tablet 800 mg PO Q8H Rx Instructions: Only take as needed Referrals Follow up/Referrals: Brian Dunham APRN [Primary Care Provider] - See instructions Clinical Impressions Clinical Impression: Nephrolithiasis Instructions Patient Instructions: DI for Kidney Stones Discharge ED Provider: Pablo Arellano General Adult HPI General Chief complaint: Urogenital-Female Stated complaint: back pain, no accident Time Seen by Provider: 05/07/22 12:25 Mode of Arrival: Ambulatory Limitations: No Limitations Description of Symptoms (Recalled from ER Triage Doc. by RN): PT REPORTS LLQ PAIN AND LOW BACK PAIN X 2 WEEKS. URINARY FREQUENCY AND URGENCY History of Present Illness HPI narrative: Patient is a 51-year-old female who presents with left-sided flank pain. She states that for the last week or so she has been having severe left-sided flank pain. She says that it seems to radiate around her back little bit. She says that she has never had this happen in the past. No history of kidney stones. She does endorse some chills but denies any fever. Denies any abdominal pain. Denies any chest pain. No shortness of breath. No diarrhea or constipation. She has felt a little nauseous but has not had any vomiting. Denies any hematuria. Related Data Home Medications Medication Instructions Recorded Confirmed ibuprofen 800 mg tablet 800 mg PO Q8H Pain 01/07/22 02/21/22 Previous Rx's Medication Instructions Recorded pantoprazole 40 mg tablet,delayed 40 mg PO DAILY GERD #90 tabs 12/31/20 release tramadol 50 mg tablet 50 mg PO Q8H PRN pain #14 tabs 01/01/22 albuterol sulfate 90 mcg/actuation 2 puff inhalation Q6H allergies 02/21/22 aerosol inhaler #6.7 grams cariprazine 1.5 mg capsule 1.5 mg PO DAILY Anxiety #90 caps 02/21/22 diazepam 5 mg tablet 5 mg PO BID Anxiety #60 tabs 02/21/22 fluticasone propionate 50 1 spray intranasal DAILY allergies 02/21/22 mcg/actuation nasal #16 grams spray,suspension montelukast 10 mg tablet 10 mg PO DAILY allergies #90 tabs 02/21/22 ondansetron 8 mg disintegrating 8 mg PO Q8H PRN nausea and 02/21/22 tablet vomiting #30 tabs hydroxyzine pamoate 25 mg capsule 25 mg PO TID PRN Anxiety #90 caps 03/05/22 loratadine 10 mg tablet (Claritin) 10 mg PO DAILY #30 tabs 03/05/22 hydrocodone 5 mg-acetaminophen 300 1 tab PO Q8H PRN pain #7 tabs 05/07/22 mg tablet ketorolac 10 mg tablet 10 mg PO Q8H 5 days #15 tabs 05/07/22 tamsulosin 0.4 mg capsule (Flomax) 0.4 mg PO Q24H #14 caps 05/07/22 Allergies Allergy/AdvReac Type Severity Reaction Status Date / Time No Known Allergies Allergy Verified 02/21/22 13:00 [facility] Disclaimer: The information contained in
[2022-05-07 15:01] VITALS: BP 126/76; PULSE 67; O2SAT 99
[2022-05-07 15:15] VITALS: BP 126/76; PULSE 66; RESP 17; TEMP 36.6; O2SAT 99
== END 2022-05-07 15:15 | disposition home or self-care (01) ==
PROVIDERS: Emergency Provider Student in an Organized Health Care Education/Training Program; PCP Nurse Practitioner Family
DX: R10.32 Left lower quadrant pain (principal); M54.50 Low back pain, unspecified; R11.2 Nausea with vomiting, unspecified; K21.9 Gastro-esophageal reflux disease without esophagitis; F41.9 Anxiety disorder, unspecified; F17.210 Nicotine dependence, cigarettes, uncomplicated; Z79.1 Long term (current) use of non-steroidal anti-inflammatories (NSAID); Z79.51 Long term (current) use of inhaled steroids; Z79.899 Other long term (current) drug therapy
CPT/HCPCS: 74176; 80053; 81001; 85025; 86140; 96361; 96374; 96375; 99285; J2405

== ENCOUNTER 2022-05-14 17:47 | Emergency (ER) | payer BC, MEDICAID, SELFPAY ==
[2022-05-14 17:48] VITALS: BP 113/82; PULSE 80; RESP 16; TEMP 36.8; O2SAT 100; BMI 29.2
--- NOTE | 2022-05-14 18:10 | HMH.EDGENADL ---
Discharge Plan Disposition Patient Disposition: Home, Self-Care Condition: Good Chief Complaint: Abdominal Pain Prescriptions Prescriptions: No Action diazepam 5 mg tablet 5 mg PO BID Qty: 60 3RF albuterol sulfate 90 mcg/actuation HFA aerosol inhaler 2 puff IH Q6H Qty: 6.7 2RF Rx Instructions: administer with spacer cariprazine 1.5 mg capsule 1.5 mg PO DAILY Qty: 90 0RF montelukast 10 mg tablet 10 mg PO DAILY Qty: 90 0RF ondansetron 8 mg tablet,disintegrating 8 mg PO Q8H PRN (Reason: nausea and vomiting) Qty: 30 1RF pantoprazole 40 mg tablet,delayed release (DR/EC) 40 mg PO DAILY Qty: 90 3RF tramadol 50 mg tablet 50 mg PO Q8H PRN (Reason: pain) Qty: 14 0RF loratadine [Claritin] 10 mg tablet 10 mg PO DAILY Qty: 30 2RF hydroxyzine pamoate 25 mg capsule 25 mg PO TID PRN (Reason: Anxiety) Qty: 90 1RF fluticasone propionate 50 mcg/actuation spray,suspension 1 spray NS DAILY Qty: 16 0RF Rx Instructions: administer into each nostril tamsulosin [Flomax] 0.4 mg capsule 0.4 mg PO Q24H Qty: 14 0RF ketorolac 10 mg tablet 10 mg PO Q8H 5 Days Qty: 15 0RF hydrocodone-acetaminophen 5-300 mg tablet 1 tab PO Q8H PRN (Reason: pain) Qty: 7 0RF hydrocodone-acetaminophen 5-325 mg tablet 1 tab PO Q6H PRN (Reason: pain) Qty: 7 0RF ibuprofen 800 MG tablet 800 mg PO Q8H Rx Instructions: Only take as needed Referrals Follow up/Referrals: Brian Dunham APRN [Primary Care Provider] - See instructions Activity Restrictions/Add. Instructions Additional Instructions/Restrictions: Continue ibuprofen for pain. Your primary care provider for further evaluation and care of your back and flank pain. Follow-up with urology for right kidney lesion and right sided hydroureteronephrosis, blood in urine. Take your CT disc with you to appointment. Follow up with a urologist, call for appointment: [facility] [place] [address] Ross Rai [facility] [address] [facility], [address] [place] [id number] Clinical Impressions Clinical Impression: Left flank pain, Low back pain, Hematuria, microscopic, Hydroureteronephrosis, Kidney lesion, [place], right, Mass of right kidney, Abdominal pain, Abdominal distension Instructions Patient Instructions: DI for Acute Abdominal Pain, DI for Flank Pain, DI for Hematuria, DI for Low Back Pain, DI for Hydronephrosis-Adult Discharge ED Provider: Mario Wagner General Adult HPI General Chief complaint: Abdominal Pain Stated complaint: SOA, swelling in abdomen, backpain Time Seen by Provider: 05/14/22 18:00 Mode of Arrival: Ambulatory Source of Information: Patient Limitations: No Limitations Description of Symptoms (Recalled from ER Triage Doc. by RN): pt c/o abd pain with swelling that started today. Advises she was seen in ED on Thursday and dx with kidney stone but denies any pain or burning with urination. Pt also denies any N/V/D. She c/o pain across her lower back and left flank History of Present Illness HPI narrative: Patient complains of abdominal swelling, abdominal pain, back pain. States that she was seen here 1 week ago for back pain and diagnosed with a kidney stone. Her back pain is diffuse across her lumbar area and in her lateral left flank. Her back pain has never gone away. States she was prescribed 7 pain pills and took them all without improvement. She has also been taking Flomax and Toradol. Abdomen has been swelling over the past few days. No nausea, vomiting, or diarrhea. She states she had a normal bowel movement 3 hours ago. She says that she had swelling of her abdomen like this a year ago and was hospitalized for diverticulitis. She also had abdominal swelling like this in December and had a work-up which did not show anything significantly abnormal. She had a CT scan,
--- NOTE | 2022-05-14 18:15 | CT_ITS ---
PROCEDURE INFORMATION: Exam: CT Abdomen And Pelvis With Contrast Exam date and time: 05/14/2022 6:32 PM Age: 51 years old Clinical indication: Abdominal pain; Generalized; Prior surgery; Surgery date: 6+ months; Surgery type: Hysterectomy; Additional info: Abdo/back pain, abdo distension TECHNIQUE: Imaging protocol: Computed tomography of the abdomen and pelvis with contrast. Radiation optimization: All CT scans at this facility use at least one of these dose optimization techniques: automated exposure control; mA and/or kV adjustment per patient size (includes targeted exams where dose is matched to clinical indication); or iterative reconstruction. Contrast material: ISOVUE; Contrast volume: 75 ml; Contrast route: IV; COMPARISON: CT ABDOMEN PELVIS WO CON 05/07/2022 1:26 PM FINDINGS: Lungs: Subsegmental atelectasis noted in the lingula. Liver: No focal hepatic lesions. Gallbladder and bile ducts: Gallbladder is distended without radiopaque cholelithiasis. No biliary ductal dilation. Pancreas: No peripancreatic fluid stranding. No main pancreatic ductal dilation. Spleen: No splenomegaly. Adrenal glands: The adrenal glands are normal. Kidneys and ureters: Nephrograms are symmetric. Mild right hydroureteronephrosis persists without obstructive calculus. Subcentimeter hypodensity in the right kidney is too small to accurately characterize. Stomach and bowel: Unremarkable. No obstruction. No mucosal thickening. Appendix: A normal appendix is identified. Intraperitoneal space: There is no evidence of free intraperitoneal or pelvic fluid. Vasculature: Unremarkable. No abdominal aortic aneurysm. Lymph nodes: No evidence of retroperitoneal or mesenteric lymphadenopathy. Urinary bladder: Urinary bladder is unremarkable. Reproductive: Status post hysterectomy Bones/joints: Unremarkable. No acute fracture. Soft tissues: Unremarkable. Other findings: Punctate nonobstructive left caliceal calculus. IMPRESSION: Mild right hydroureteronephrosis persists without obstructive calculus. COMMENTS: Consistent with the [place]'s Incidental Findings Committee white paper (J Am Lluvia Radiol 2018): Any incidental renal lesion less than 1 cm or classified as too small to characterize, or any incidental cystic renal lesion characterized as simple-appearing, is likely benign. No follow-up imaging is recommended for these lesions per consensus recommendations based on imaging criteria.
[2022-05-14 18:19] LABS: Microscopic, Urine URINE MICROSCOPIC (MICROSCOPIC)
[2022-05-14 18:24] LABS: Basophils # 0.2 K/mm3 (0-0.2); Basophils % 1.9 % (0.1-2.0); Eosinophils # 0.2 K/mm3 (0.0-0.4); Eosinophils % 2.5 % (0.1-12.0); Hemoglobin 14.7 g/dL (12.2-16.2); Lymphocytes # 2.8 K/mm3 (0.7-4.5); Lymphocytes % 32.8 % (10-50); Mean Corpuscular HGB Conc 32.7 g/dL (31.8-35.4); Mean Corpuscular Hemoglobin 28.7 pg (27.0-31.2); Mean Corpuscular Volume 87.9 fl (81-99); Monocytes # 0.5 K/mm3 (0.1-1.0); Monocytes % 6.2 % (1.7-9.3); Neutrophils # 4.8 K/mm3 (1.8-7.8); Neutrophils % 56.5 % (37.0-80.0); Platelet Count 257 K/mm3 (142-424); Red Blood Count 5.12 M/mm3 (4.20-5.40); White Blood Count 8.5 K/mm3 (4.8-10.8)
[2022-05-14 18:27] LABS: Appearance,Urine CLEAR (Clear); Bilirubin,Urine Negative (Negative); Blood, Urine 2+ (Negative); Color,Urine YELLOW (Yellow); Glucose,Urine (UA) Negative (Negative); Ketones,Urine Negative (Negative); Leukocyte Esterase,Urine Negative (Negative); Nitrate,Urine Negative (Negative); PH,Urine 6.5 (5.0-8.5); Protein,Urine Negative (Negative); Urobilinogen,Urine 0.2 EU/dl (0.2)
[2022-05-14 18:41] LABS: Chloride 104 mmol/L (98-107); Potassium 3.9 mmoL/L (3.5-5.1); Sodium 140 mmol/L (136-145)
[2022-05-14 18:43] LABS: Alanine Aminotransferase 56 U/L (12-78); Alkaline Phosphatase 116 U/L (38-126); Aspartate Amino Transferase 48 U/L (14-36); Bilirubin,Total 0.3 mg/dl (0.2-1.3); Blood Urea Nitrogen 25 mg/dl (7-17); Creatinine Clearance Estimated 77 mL/min (50-200); Estimated Glomerular Filt Rate 59 ml/min (>60); GFR (African American) 71 ML/MIN (>60)
[2022-05-14 18:44] LABS: Albumin Level 4.6 g/dl (3.5-5.0); Albumin/Globulin Ratio 1.5 (1.1-1.8); Anion Gap 11.9 mEq/L (5-15); Calcium 9.9 mg/dl (8.4-10.2); Carbon Dioxide 28 mmol/L (22.0-30.0); Glucose 88 mg/dl (74-100); Lipase 90 U/L (23-300); Total Protein,Serum 7.6 g/dl (6.3-8.2)
[2022-05-14 18:49] LABS: Bacteria,Urine Trace /lpf
--- NOTE | 2022-05-14 19:00 | PC.NURSE ---
rounded on pt at this time. Updated her on POC. Pt had no new needs at this time
[2022-05-14 19:35] VITALS: BP 125/75; PULSE 79; RESP 20; TEMP 36.8; O2SAT 98
== END 2022-05-14 19:40 | disposition home or self-care (01) ==
PROVIDERS: Emergency Provider Emergency Medicine; PCP Nurse Practitioner Family
DX: N13.2 Hydronephrosis with renal and ureteral calculous obstruction (principal); R31.29 Other microscopic hematuria; M54.50 Low back pain, unspecified; R06.02 Shortness of breath; D49.511 Neoplasm of unspecified behavior of right kidney; R11.2 Nausea with vomiting, unspecified; F41.9 Anxiety disorder, unspecified; Z79.1 Long term (current) use of non-steroidal anti-inflammatories (NSAID); F17.210 Nicotine dependence, cigarettes, uncomplicated; Z79.51 Long term (current) use of inhaled steroids; Z79.899 Other long term (current) drug therapy
CPT/HCPCS: 74177; 80053; 81001; 83690; 85025; 96374; 96375; 99285; J2405; Q9967

== ENCOUNTER → 2022-12-08 09:33 | Outpatient (CLI) | payer BC, SELFPAY ==
--- NOTE | 2022-12-08 09:42 | CT_ITS ---
FINAL REPORT TECHNIQUE: Pre-and postcontrast axial imaging of the abdomen and pelvis was obtained.This study was performed with techniques to keep radiation doses as low as reasonably achievable, (ALARA). Individualized dose reduction technique using automated exposure control or adjustment of mA and/or kV according to the patient's size were employed. CLINICAL HISTORY: CYST ON KIDNEY COMPARISON: 05/07/2022 FINDINGS: The lung bases are clear. The liver is homogeneous. The gallbladder is present. The spleen, adrenal glands, and pancreas are unremarkable. There is no hydronephrosis. There is a stable hypodense lesion in the right kidney. The lesion is cortical and measures 9 mm in diameter. Hounsfield unit measurement is somewhat unreliable due to its intraparenchymal location, small size, and volume averaging. No other renal lesions are identified. On precontrast imaging, no renal stones are identified. Abdominal GI tract is unremarkable. There is no lymphadenopathy or ascites. The pelvic organs and pelvic portions of the GI tract, including the appendix, are within normal limits. The uterus has been surgically removed. There is diverticulosis without diverticulitis. There is no lymphadenopathy or ascites. There is a sclerotic lesion in the left ilium which is unchanged from the prior exam. IMPRESSION: There is a subcentimeter hypodense right renal lesion, stable since the prior CT. Due to its location, small size, and volume averaging evaluation is difficult. Would suggest continued follow-up with a repeat CT with and without contrast in 1 year. Reviewed, Interpreted and Dictated by Alta Dangelo MD Transcribed by Katerine Ovalle Authenticated and . [facility]
[2022-12-08 11:16] LABS: Blood Urea Nitrogen 18 mg/dl (7-17); Estimated Glomerular Filt Rate 88 ml/min (>60); GFR (African American) 107 ML/MIN (>60)
== END ==
LOC: RAD 09:33
PROVIDERS: PCP Nurse Practitioner Family; Visit Provider Urology
DX: N28.1 Cyst of kidney, acquired (principal)
CPT/HCPCS: 36415; 74178; 82565; 84520; Q9967

== ENCOUNTER → 2023-03-18 15:41 | Outpatient (CLI) | payer BC, SELFPAY ==
[2023-03-18 14:57] LABS: Basophils # 0.1 K/mm3 (0-0.2); Basophils % 0.4 % (0.1-2.0); Eosinophils # 0.2 K/mm3 (0.0-0.4); Eosinophils % 1.8 % (0.1-12.0); Hematocrit 45.7 % (37.0-47.0); Hemoglobin 15.4 g/dL (12.2-16.2); Lymphocytes # 2.6 K/mm3 (0.7-4.5); Lymphocytes % 20.9 % (10-50); Mean Corpuscular HGB Conc 33.7 g/dL (31.8-35.4); Mean Corpuscular Hemoglobin 29.1 pg (27.0-31.2); Mean Corpuscular Volume 86.3 fl (81-99); Mean Platelet Volume 9.5 fl (7.4-10.4); Monocytes # 0.7 K/mm3 (0.1-1.0); Monocytes % 5.6 % (1.7-9.3); Neutrophils % 71.3 % (37.0-80.0); Platelet Count 215 K/mm3 (142-424); White Blood Count 12.6 K/mm3 (4.8-10.8)
[2023-03-18 15:07] LABS: Alanine Aminotransferase 29 U/L (12-78); Albumin Level 4.4 g/dl (3.5-5.0); Albumin/Globulin Ratio 1.5 (1.1-1.8); Alkaline Phosphatase 95 U/L (38-126); Aspartate Amino Transferase 35 U/L (14-36); Bilirubin,Total 0.3 mg/dl (0.2-1.3); Blood Urea Nitrogen 18 mg/dl (7-17); Calcium 9.6 mg/dl (8.4-10.2); Carbon Dioxide 24 mmol/L (22.0-30.0); Chloride 105 mmol/L (98-107); Chol/HDL Ratio 5.5 (1-3.5); Cholesterol 253 mg/dl (140-200); Estimated Glomerular Filt Rate 88 ml/min (>60); GFR (African American) 107 ML/MIN (>60); Glucose 101 mg/dl (74-100); HDL Cholesterol 46 mg/dl (40-60); Sodium 139 mmol/L (136-145); Total Protein,Serum 7.4 g/dl (6.3-8.2); Triglycerides 114 mg/dl (30-150); VLDL Cholesterol 23 mg/dL (0-40)
[2023-03-18 15:25] LABS: 25-OH Vitamin D, Total 19.4 ng/mL (30-100)
[2023-03-18 15:38] LABS: Thyroid Stimulating Hormone 1.92 uIU/mL (0.465-4.68)
[2023-03-18 15:56] LABS: Vitamin B12 601 pg/mL (239-931)
[2023-03-20 14:34] LABS: HBsAg Screen Negative (Negative); HCV Ab Non Reactive (Non Reactive); HIV Screen 4th Generation wRfx Non Reactive (Non Reactive); Hep A Ab, IGM Negative (Negative); Hep B Core Ab, IgM Negative (Negative)
== END ==
PROVIDERS: PCP Nurse Practitioner Family; Visit Provider Nurse Practitioner Family
DX: R74.01 Elevation of levels of liver transaminase levels (principal); I10 Essential (primary) hypertension; E55.9 Vitamin D deficiency, unspecified; Z68.30 Body mass index [BMI] 30.0-30.9, adult; E66.9 Obesity, unspecified; F17.200 Nicotine dependence, unspecified, uncomplicated; F41.9 Anxiety disorder, unspecified; F32.A Depression, unspecified; Z79.899 Other long term (current) drug therapy
CPT/HCPCS: 80053; 80061; 80074; 82306; 82607; 84443; 85025; 86703; G0432

== ENCOUNTER 2023-07-15 19:55 | Emergency (ER) | payer BC, SELFPAY ==
[2023-07-15 19:56] VITALS: BP 134/70; PULSE 95; RESP 18; TEMP 36.9; O2SAT 100; BMI 32.5
--- NOTE | 2023-07-15 20:05 | ED_ITS ---
I was consulted by the TONY and we discussed the complexity of the problems being addressed. I approved the treatment and management plan for this patient's care in the emergency department, thus performing a substantive portion of the medical decision making. Signed, Aida Drummond MD Discharge Plan Disposition Patient Disposition: Home, Self-Care Condition: Good Prescriptions Prescriptions: No Action albuterol sulfate 90 mcg/actuation HFA aerosol inhaler 2 puff IH Q6H Qty: 6.7 2RF Rx Instructions: administer with spacer diazepam 5 mg tablet 5 mg PO BID Qty: 60 3RF ibuprofen 800 mg tablet 800 mg PO Q8H Qty: 90 0RF Rx Instructions: Only take as needed fluticasone propionate 50 mcg/actuation spray,suspension See Rx Instructions .ROUTE .COMPLEX Qty: 16 2RF Dose Instruction: SHAKE LIQUID AND USE 1 SPRAY IN EACH NOSTRIL DAILY FOR ALLERGIES Rx Instructions: SHAKE LIQUID AND USE 1 SPRAY IN EACH NOSTRIL DAILY FOR ALLERGIES montelukast 10 mg tablet 10 mg PO DAILY Qty: 90 3RF Wegovy 0.25 mg/0.5 mL pen injector 0.25 mg SQ WEEKLY Qty: 2 2RF Rx Instructions: administer weeks 1 through 4 of therapy Vraylar 1.5 mg capsule 1.5 mg PO DAILY Qty: 90 1RF hydroxyzine pamoate 25 mg capsule 25 mg PO TID PRN (Reason: Anxiety) Qty: 90 1RF loratadine [Claritin] 10 mg tablet 10 mg PO DAILY Qty: 90 3RF omeprazole 20 mg capsule,delayed release(DR/EC) 20 mg PO DAILY Qty: 30 2RF cholecalciferol (vitamin D3) 50 mcg (2,000 unit) capsule 50 mcg PO DAILY Qty: 30 4RF cholecalciferol (vitamin D3) 1,250 mcg (50,000 unit) tablet 1,250 mcg PO WEEKLY Qty: 7 2RF Referrals Follow up/Referrals: Brian Dunham APRN [Primary Care Provider] - See instructions Maryjane Ramirez DPM [Staff Physician] - See instructions Activity Restrictions/Add. Instructions Additional Instructions/Restrictions: I recommend rest ice compression elevation and possible. Please take [id number] Tylenol alternating with Motrin for pain fever swelling. Please return if worsening of symptoms or any new symptoms occur. Clinical Impressions Clinical Impression: Tendinitis of ankle Discharge ED Provider: Aida Drummond General Adult HPI General Chief complaint: PAIN Stated complaint: RT foot numb, pain shooting through foot Time Seen by Provider: 07/15/23 20:05 History of Present Illness HPI narrative: Patient presents for acute onset right lower posterior ankle pain for 1 day. Denies trauma. Related Data Previous Rx's Medication Instructions Recorded albuterol sulfate 90 mcg/actuation 2 puff inhalation Q6H allergies 02/21/22 aerosol inhaler #6.7 grams ibuprofen 800 mg tablet 800 mg PO Q8H Pain #90 tabs 01/29/23 diazepam 5 mg tablet 5 mg PO BID Anxiety #60 tabs 03/18/23 cholecalciferol (vitamin D3) 1,250 1,250 mcg PO WEEKLY #7 tabs 03/19/23 mcg (50,000 unit) tablet cholecalciferol (vitamin D3) 50 50 mcg PO DAILY #30 caps 03/19/23 mcg (2,000 unit) capsule fluticasone propionate 50 See Rx Instructions .Route 04/29/23 mcg/actuation nasal .COMPLEX #16 grams spray,suspension cariprazine 1.5 mg capsule 1.5 mg PO DAILY #90 caps 05/21/23 (Vraylar) hydroxyzine pamoate 25 mg capsule 25 mg PO TID PRN Anxiety #90 caps 05/21/23 loratadine 10 mg tablet (Claritin) 10 mg PO DAILY #90 tabs 05/21/23 montelukast 10 mg tablet 10 mg PO DAILY allergies #90 tabs 05/21/23 omeprazole 20 mg capsule,delayed 20 mg PO DAILY #30 caps 05/21/23 release semaglutide (weight loss) 0.25 0.25 mg (0.5 mL) SQ WEEKLY #2 mL 05/21/23 mg/0.5 mL subcutaneous pen injector (Wegovy) Allergies Allergy/AdvReac Type Severity Reaction Status Date / Time No Known Allergies Allergy Verified 05/21/23 08:47 [facility] Disclaimer: The information contained in this section may have been updated after the patient was seen, as this information can be updated by other users. 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 current occupational exposures/hazards: No caffeine: Yes ROS Obtained: Yes Systems reviewed as appropriate & no additional complaints except as documented Physical Exam General General appearance: alert and in no apparent distress Eye Eye exam: Present normal appearance, PERRL and EOMI Neck Neck exam: Present lymphadenopathy Respiratory Respiratory exam: Present normal lung sounds bilaterally Cardiovascular Cardiovascular exam: Present regular rate and normal rhythm Extremities Exam Extremities exam: Present other (Patient is tender to palpation to the lateral aspect of the ankle joint below the malleolus along with tenderness to palpation at the calcaneal insertion of the Achilles tendon. No crepitus no erythema no deformities. Neurovascular intact.) Neurological Exam Neurological exam: Present alert and oriented X3 Skin Skin exam: Present warm, dry and normal color Medical Decision Making Medical Records Medical records reviewed: Yes I reviewed the patient's medical records. Chandan Inquiry Pt receiving controlled substance: No Vital Signs: 07/15/23 19:56 07/15/23 20:10 07/15/23 20:20 Temperature 98.5 F Temperature Source Oral Pulse Rate 94 H 76 Pulse Rate [Right] 95 H Respiratory Rate 18 Blood Pressure 130/86 105/61 L Blood Pressure [Right Arm] 134/70 Blood Pressure Mean [Right Arm] 91 Blood Pressure Source Blood Pressure Source [Right Arm] Automatic Cuff Blood Pressure Position 02 Sat by Pulse Oximetry 100 98 96 Oxygen Delivery Method Room Air 07/15/23 20:30 07/15/23 20:45 07/15/23 22:02 Temperature 98.2 F Temperature Source Oral Pulse Rate 74 82 68 Pulse Rate [Right] Respiratory Rate 14 Blood Pressure 120/77 114/73 121/78 Blood Pressure [Right Arm] Blood Pressure Mean [Right Arm] Blood Pressure Source Automatic Cuff Blood Pressure Source [Right Arm] Blood Pressure Position Sitting 02 Sat by Pulse Oximetry 97 95 Oxygen Delivery Method Room Air Lab Data Lab results reviewed: Yes I reviewed the patient's lab results. Orders (Tests/Meds): ED MEDICATIONS Discontinued Medications Generic Name Dose Route Start Last Admin Trade Name Freq PRN Reason Stop Dose Admin Acetaminophen 1,000 mg 07/15/23 20:36 07/15/23 21:31 Acetaminophen 1,000mg/100ml Vial IV 07/15/23 20:37 Not Given ONCE ONE Acetaminophen 1,000 mg 07/15/23 21:28 07/15/23 21:33 Acetaminophen 500mg Tab PO 07/15/23 21:29 1,000 mg ONCE ONE Administration Ketorolac Tromethamine 15 mg 07/15/23 20:36 07/15/23 21:31 Ketorolac 30mg/Ml Vial IV 07/15/23 20:37 Not Given ONCE ONE Ketorolac Tromethamine 15 mg 07/15/23 21:29 07/15/23 21:33 Ketorolac 30mg/Ml Vial IM 07/15/23 21:30 15 mg ONCE ONE Administration Ketorolac Tromethamine 15 mg 07/15/23 21:30 07/15/23 21:33 Ketorolac 30mg/Ml Vial IM 07/15/23 21:31 Not Given ONCE ONE Miscellaneous 1 each 07/15/23 21:45 07/15/23 22:00 Pha To Nursing Instruction NOTAPPLIC 07/15/23 21:46 Not Given ONCE ONE ORDERS Category Date Time Status Ankle XR -Right minimum 3 Views [XR ankle RT min 3V] Exams 07/15/23 20:35 Completed Stat Medical Decision Narrative: In summary patient is a 53-year-old female who presents to the emergency department for evaluation of right ankle pain. Patient is dynamically stable afebrile upon arrival, . Physical exam reveals a stable ankle joint no laxity and with tenderness to palpation primarily in the posterior aspect inferior to the lateral malleolus and posteriorly to it. However no edema erythema deformity noted. Patient is also tender palpation at the insertion of the Achilles tendon at the calcaneus. Differential diagnosis includes soft tissue versus bony abnormality such as stress fracture or tendon rupture plantar fasciitis etc. Initial workup will be conducted with the trace. Initial interventions include acetaminophen and Toradol initial workup reviewed by me that showed no acute bony abnormalities of the right ankle. Upon repeat evaluation had improvement in her subjective discomfort at her right ankle joint. Given this shared decision making I referred the patient to podiatry along with recommendations to continue NSAIDs until her podiatry appointment. Ice as needed for inflammatory pain. Return to the ER for any new or worsening symptoms. Critical Care Critical Care Time Critical Care Time: No
[2023-07-15 20:10] VITALS: BP 130/86; PULSE 94; O2SAT 98
[2023-07-15 20:20] VITALS: BP 105/61; PULSE 76; O2SAT 96
[2023-07-15 20:30] VITALS: BP 120/77; PULSE 74; O2SAT 97
--- NOTE | 2023-07-15 20:35 | XR_ITS ---
PROCEDURE INFORMATION: Exam: XR Right Ankle Exam date and time: 07/15/2023 8:41 PM Age: 53 years old Clinical indication: Pain; Ankle; Right TECHNIQUE: Imaging protocol: Radiologic exam of the right ankle. Views: 3 or more views. COMPARISON: CR (FOOT AP, FOOT, FOOT AP) 10/14/2018 1:22 PM and MR 09/06/2018 FINDINGS: Bones/joints: Expansile appearance of the distal diaphysis of the fibula similar to previous favored to represent residual of old trauma. No acute fracture identified. No other significant bone or joint abnormality. Soft tissues: Normal. IMPRESSION: No acute abnormality.
[2023-07-15 20:45] VITALS: BP 114/73; PULSE 82; O2SAT 95
--- NOTE | 2023-07-15 20:50 | PC.NURSE ---
patient taken to xray
[2023-07-15] MEDS: KETOROLAC 30MG/ML VIAL 15 MG IM (21:33)
[2023-07-15] MEDS: ACETAMINOPHEN 500MG TAB 1000 MG PO (21:33)
[2023-07-15 22:02] VITALS: BP 121/78; PULSE 68; RESP 14; TEMP 36.8; O2SAT 98
== END 2023-07-15 22:03 | disposition home or self-care (01) ==
PROVIDERS: Emergency Provider Emergency Medicine; PCP Nurse Practitioner Family
DX: M65.271 Calcific tendinitis, right ankle and foot (principal); F17.210 Nicotine dependence, cigarettes, uncomplicated
CPT/HCPCS: 73610; 96372; 99283

== ENCOUNTER 2023-08-06 11:10 | Outpatient (CLI) | payer BC, SELFPAY | END 2023-08-06 23:59 | LOC: LAB.DROPOF 11:11 | PROVIDERS: PCP Family Medicine; Visit Provider Family Medicine | DX: N39.0 Urinary tract infection, site not specified (principal); L29.2 Pruritus vulvae; N89.8 Other specified noninflammatory disorders of vagina; Z79.899 Other long term (current) drug therapy; B37.9 Candidiasis, unspecified | CPT/HCPCS: 87086; 87210 ==

== ENCOUNTER 2023-09-29 11:30 | Outpatient (CLI) | payer MEDICAID, SELFPAY ==
[2023-10-02 06:22] LABS: Neisseria gonorrhoeae, NAA Negative (Negative)
== END 2023-09-29 23:59 | disposition home or self-care (01) ==
LOC: LAB.DROPOF 09-30 11:34
PROVIDERS: PCP Nurse Practitioner Family; Visit Provider Nurse Practitioner Family
DX: N39.0 Urinary tract infection, site not specified (principal); R30.0 Dysuria; R39.15 Urgency of urination; M54.59 Other low back pain; R82.998 Other abnormal findings in urine
CPT/HCPCS: 87086; 87491; 87591

== ENCOUNTER 2023-10-21 18:14 | Outpatient (CLI) | payer MEDICAID, SELFPAY | END 2023-10-21 23:59 | disposition home or self-care (01) | LOC: LAB.DROPOF 18:15 | PROVIDERS: PCP Nurse Practitioner Family; Visit Provider Nurse Practitioner Family | DX: N39.0 Urinary tract infection, site not specified (principal); A49.9 Bacterial infection, unspecified | CPT/HCPCS: 87086 ==

== ENCOUNTER 2023-11-16 16:21 | Outpatient (CLI) | payer MEDICAID, SELFPAY ==
[2023-11-16 16:20] LABS: Microscopic, Urine URINE MICROSCOPIC (MICROSCOPIC)
[2023-11-16 19:07] LABS: Appearance,Urine CLEAR (Clear); Bilirubin,Urine Negative (Negative); Blood, Urine 1+ (Negative); Color,Urine YELLOW (Yellow); Glucose,Urine (UA) Negative (Negative); Ketones,Urine Negative (Negative); Leukocyte Esterase,Urine Negative (Negative); Nitrate,Urine Negative (Negative); Protein,Urine Negative (Negative); Urobilinogen,Urine 0.2 EU/dl (0.2)
[2023-11-16 20:29] LABS: Bacteria,Urine Trace /lpf; Squamous Epithelial Cell,Urine Occasional #/hpf (0-5)
[2023-11-21 21:11] LABS: Atopobium vaginae Low - 0 Score (.); BVAB2 Low - 0 Score (.); Candida albicans NAA Negative (Negative); Candida glabrata Negative (Negative); Chlamydia Trachomatis NAA Negative (Negative); HSV 1 NAA Negative (Negative); HSV 2 NAA Negative (Negative); Megasphaera 1 Low - 0 Score (.); Neisseria gonorrhoeae NAA Negative (Negative); Trich vag NAA Positive (Negative)
== END 2023-11-16 23:59 | disposition home or self-care (01) ==
LOC: LAB.DROPOF 16:21
PROVIDERS: PCP Urology; Visit Provider Urology
DX: Z11.3 Encounter for screening for infections with a predominantly sexual mode of transmission (principal); N39.0 Urinary tract infection, site not specified; A49.9 Bacterial infection, unspecified
CPT/HCPCS: 81001; 87086; 87491; 87529; 87563; 87591; 87661; 87798; 87801

== ENCOUNTER 2023-12-03 10:40 | Outpatient (CLI) | payer MEDICAID, SELFPAY ==
--- NOTE | 2023-12-03 10:43 | CT_ITS ---
FINAL REPORT TECHNIQUE: Axial CT images of the abdomen and pelvis were obtained before and after the administration of IV contrast. This study was performed with techniques to keep radiation doses as low as reasonably achievable (ALARA). Individualized dose reduction techniques using automated exposure control or adjustment of mA and/or kV according to the patient's size were employed. CLINICAL HISTORY: Renal mass. compare renal mass to last year study COMPARISON: 12/08/2022 FINDINGS: Abdomen: The lung bases are clear. The heart is normal in size. The liver has an unremarkable appearance, without evidence of mass or biliary duct dilatation. . The spleen is unremarkable. No adrenal masses present. The pancreas has an unremarkable appearance. No renal stone is identified. There is a 7 mm low-attenuation right renal mass, in the midportion of the kidney, noted on the prior CT of November 2022, consistent in appearance with either a small cyst or a calyceal diverticulum. Mild hydroureter is present, a finding of uncertain significance. No ureteral stone is seen. The aorta is normal in caliber. There is no free fluid or adenopathy. No mass or abnormal fluid collection is seen. Multiple colonic diverticula are noted without acute inflammatory change. Precontrast images demonstrate no evidence of nephrolithiasis. Pelvis: The appendix is normal in appearance. The urinary bladder is unremarkable. No inflammatory process is seen. There is no evidence of mass or adenopathy. There is no evidence of bowel obstruction. The uterus has been surgically resected. No distal ureteral stone is seen. A sclerotic focus is noted in the medial left iliac bone, stable when compared to prior CT examinations. IMPRESSION: 7 mm low attenuation mass in the mid right kidney, is consistent in appearance with a small cyst or calyceal diverticulum. No further follow-up is required at this time. Mild right hydroureter is present without a ureteral stone noted. Stable sclerotic focus in the medial left iliac bone. Reviewed, Interpreted and Dictated by Raymundo Trinidad III, MD Transcribed by Katerine Ovalle Authenticated and [facility]
[2023-12-03] MEDS: SODIUM CHLORIDE 0.9% 10ML SYR (RAD ONLY) 10 ML IV (11:05)
[2023-12-03] MEDS: IOPAMIDOL-370 (76%);100ML BOTTLE 75 ML IV (11:05)
== END 2023-12-03 23:59 | disposition home or self-care (01) ==
LOC: RAD 10:43
PROVIDERS: PCP Urology; Visit Provider Urology
DX: R35.0 Frequency of micturition (principal); M54.9 Dorsalgia, unspecified; N39.0 Urinary tract infection, site not specified
CPT/HCPCS: 74178; Q9967

== ENCOUNTER 2023-12-14 11:07 | Outpatient (CLI) | payer MEDICAID, SELFPAY ==
[2023-12-14 15:42] LABS: Microscopic, Urine URINE MICROSCOPIC (MICROSCOPIC)
[2023-12-14 16:00] LABS: Appearance,Urine CLEAR (Clear); Bilirubin,Urine Negative (Negative); Blood, Urine TRACE-I (Negative); Color,Urine YELLOW (Yellow); Glucose,Urine (UA) Negative (Negative); Ketones,Urine Negative (Negative); Leukocyte Esterase,Urine Negative (Negative); Nitrate,Urine Negative (Negative); PH,Urine 5.5 (5.0-8.5); Protein,Urine Negative (Negative); Specific Gravity, Urine >= 1.030 (1.005-1.030); Urobilinogen,Urine 0.2 EU/dl (0.2)
[2023-12-14 16:32] LABS: Bacteria,Urine Trace /lpf; WBC,Urine Occasional #/hpf (0-3)
== END 2023-12-14 23:59 | disposition home or self-care (01) ==
LOC: LAB.DROPOF 12-15 11:07
PROVIDERS: PCP Urology; Visit Provider Urology
DX: N39.0 Urinary tract infection, site not specified (principal); R35.0 Frequency of micturition; A49.9 Bacterial infection, unspecified
CPT/HCPCS: 81001

== ENCOUNTER 2023-12-17 10:21 | Outpatient (CLI) | payer MEDICAID, SELFPAY ==
--- NOTE | 2023-12-17 10:22 | XR_ITS ---
FINAL REPORT TECHNIQUE: Intermediate Frame Tender images with sequential KUBs following IV contrast administration were obtained. CLINICAL HISTORY: rt ureter swollen COMPARISON: None FINDINGS: Intermediate Frame Tender KUB shows 2 small left pelvic calcifications favored to be extra ureteral. Following contrast administration, renal shadows are normal in contour. Contrast is promptly excreted through the renal system within 3 minutes. There is no evidence of calyceal diverticulum. There are no obstructive changes. The visualized portions of the ureters are normal in caliber. IMPRESSION: Unremarkable excretory ureterogram. If evaluation was performed for mass or hematuria, CT using renal mass protocol would be a more sensitive exam. Reviewed, Interpreted and Dictated by Lina Diaz MD Transcribed by Felicita Brewer Authenticated and [facility]
[2023-12-17 11:20] LABS: Blood Urea Nitrogen 15 mg/dl (7-17); Estimated Glomerular Filt Rate 75 ml/min (>60); GFR (African American) 91 ML/MIN (>60)
[2023-12-17] MEDS: IOPAMIDOL-370 (76%);100ML BOTTLE 50 ML IV (12:13)
[2023-12-17] MEDS: SODIUM CHLORIDE 0.9% 10ML SYR (RAD ONLY) 10 ML IV (12:13)
== END 2023-12-17 23:59 | disposition home or self-care (01) ==
LOC: RAD 10:22
PROVIDERS: PCP Urology; Visit Provider Urology
DX: R35.0 Frequency of micturition (principal)
CPT/HCPCS: 36415; 74400; 82565; 84520; Q9967

== ENCOUNTER 2024-03-09 20:18 | Emergency (ER) | payer MEDICAID, SELFPAY ==
[2024-03-09 20:19] VITALS: BP 145/103; PULSE 104; RESP 18; TEMP 36.6; O2SAT 98; BMI 32.9
--- NOTE | 2024-03-09 20:34 | ED_ITS ---
<Statement entered by Aracelis Roberts DO - 03/10/24 00:01> I was consulted by the TONY, and we discussed the complexity of the problems being addressed. I approved the treatment and management plan for this patient's care in the emergency department, thus performing a substantive portion of the medical decision making. Aracelis Roberts DO Discharge Plan Disposition Patient Disposition: Home, Self-Care Condition: Good Prescriptions Prescriptions: New amoxicillin-pot clavulanate 875-125 mg tablet 1 tab PO BID Qty: 20 0RF ondansetron 4 mg tablet,disintegrating 4 mg PO Q8H PRN (Reason: nausea and vomiting) 4 Days Qty: 12 0RF oxycodone 5 mg tablet 5 mg PO Q8H PRN (Reason: pain) Qty: 12 0RF naproxen 500 mg tablet 500 mg PO BID Qty: 20 0RF No Action albuterol sulfate 90 mcg/actuation HFA aerosol inhaler 2 puff IH Q6H Qty: 6.7 2RF Rx Instructions: administer with spacer ibuprofen 800 mg tablet 800 mg PO Q8H Qty: 90 0RF Rx Instructions: Only take as needed fluticasone propionate 50 mcg/actuation spray,suspension See Rx Instructions .ROUTE .COMPLEX Qty: 16 2RF Dose Instruction: SHAKE LIQUID AND USE 1 SPRAY IN EACH NOSTRIL DAILY FOR ALLERGIES Rx Instructions: SHAKE LIQUID AND USE 1 SPRAY IN EACH NOSTRIL DAILY FOR ALLERGIES montelukast 10 mg tablet 10 mg PO DAILY Qty: 90 3RF Vraylar 1.5 mg capsule 1.5 mg PO DAILY Qty: 90 1RF hydroxyzine pamoate 25 mg capsule 25 mg PO TID PRN (Reason: Anxiety) Qty: 90 1RF loratadine [Claritin] 10 mg tablet 10 mg PO DAILY Qty: 90 3RF omeprazole 20 mg capsule,delayed release(DR/EC) 20 mg PO DAILY Qty: 30 2RF ropinirole 1 mg tablet 1 mg PO DAILY Qty: 30 2RF estradiol 0.01 % (0.1 mg/gram) cream See Rx Instructions vaginal .COMPLEX Qty: 42.5 2RF Rx Instructions: Using finger technique daily for two weeks and then twice weekly vaginally; diazepam 5 mg tablet 5 mg PO BID Qty: 60 0RF Referrals Follow up/Referrals: Dany Houser DO [Primary Care Provider] - See instructions Activity Restrictions/Add. Instructions Additional Instructions/Restrictions: Follow-up with your PCP this week or the first part of next for checkup. Please return to the ER for any increasing pain fever nausea vomiting diarrhea. Clinical Impressions Clinical Impression: Acute diverticulitis Instructions Patient Instructions: DI for Low Back Pain Print Language Print Language: Wolof Discharge ED Provider: Aracelis Roberts General Adult HPI <AMNA Choi - Last Filed: 03/09/24 23:09> General Chief complaint: Back Pain/Injury Stated complaint: lower back pain Time Seen by Provider: 03/09/24 20:34 History of Present Illness HPI narrative: Patient presents for 3 weeks of bilateral flank pain. Patient has had 3 weeks of increasing left greater than right bilateral back pain that she describes as achy. She denies any known trauma. She also reports some bright red blood per rectum only when going to the bathroom on the toilet paper. She denies any fever chills hemoptysis hematemesis hematuria fever chest pain shortness of breath nausea vomiting. Related Data Previous Rx's ?Medication ?Instructions ?Recorded albuterol sulfate 90 mcg/actuation 2 puff inhalation Q6H allergies 02/21/22 aerosol inhaler #6.7 grams fluticasone propionate 50 See Rx Instructions .Route 04/29/23 mcg/actuation nasal .COMPLEX #16 grams spray,suspension cariprazine 1.5 mg capsule 1.5 mg PO DAILY #90 caps 05/21/23 (Vraylar) hydroxyzine pamoate 25 mg capsule 25 mg PO TID PRN Anxiety #90 caps 05/21/23 loratadine 10 mg tablet (Claritin) 10 mg PO DAILY #90 tabs 05/21/23 montelukast 10 mg tablet 10 mg PO DAILY allergies #90 tabs 05/21/23 omeprazole 20 mg capsule,delayed 20 mg PO DAILY #30 caps 05/21/23 release ibuprofen 800 mg tablet 800 mg PO Q8H Pain #90 tabs 09/16/23 ropinirole 1 mg tablet 1 mg PO DAILY #30 tabs 12/03/23 estradiol 0.01% (0.1 mg/gram) See Rx Instructions vaginal 12/28/23 vaginal cream .COMPLEX #42.5 grams diazepam 5 mg tablet 5 mg PO BID Anxiety #60 tabs 02/04/24 amoxicillin 875 mg-potassium 1 tab PO BID #20 tabs 03/09/24 clavulanate 125 mg tablet naproxen 500 mg tablet 500 mg PO BID #20 tabs 03/09/24 ondansetron 4 mg disintegrating 4 mg PO Q8H PRN nausea and 03/09/24 tablet vomiting 4 days #12 tabs oxycodone 5 mg tablet 5 mg PO Q8H PRN pain #12 tabs 03/09/24 Allergies Allergy/AdvReac Type Severity Reaction Status Date / Time No Known Allergies Allergy Verified 02/04/24 09:58 PFS <AMNA Choi - Last Filed: 03/09/24 23:09> [facility] Disclaimer: The information contained in this section may have been updated after the patient was seen, as this information can be updated by other users. 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 current occupational exposures/hazards: No caffeine: Yes Other Medical History Have you received the Flu Vaccine for this season: No Have you received the Pneumonia Vaccine: No <AMNA Choi - Last Filed: 03/09/24 23:09> ROS Obtained: Yes Systems reviewed as appropriate & no additional complaints except as documented Physical Exam <AMNA Choi - Last Filed: 03/09/24 23:09> General General appearance: alert and in no apparent distress Neck Neck exam: Present lymphadenopathy Respiratory Respiratory exam: Present normal lung sounds bilaterally Cardiovascular Cardiovascular exam: Present regular rate Neurological Exam Neurological exam: Present alert and oriented X3 Medical Decision Making <AMNA Choi - Last Filed: 03/09/24 23:09> Medical Records Medical records reviewed: Yes I reviewed the patient's medical records. Screening: Per USPSTF and CDC recommendations, given the prevalence of disease in our region, it is our hospital?s policy to screen for HIV and viral Hepatitis for all patients aged 18 and over and those with ongoing risk factors. Chandan Inquiry Pt receiving controlled substance: No Vital Signs: 03/09/24 20:19 03/09/24 21:01 03/09/24 22:00 Temperature 97.9 F Temperature Source Oral Pulse Rate 87 80 Pulse Rate [Left Radial] 104 H Respiratory Rate 18 Blood Pressure 112/70 116/76 Blood Pressure [Right Arm] 145/103 H Blood Pressure Mean [Right Arm] 117 Blood Pressure Source Blood Pressure Source [Right Arm] Automatic Cuff Blood Pressure Position 02 Sat by Pulse Oximetry 98 95 96 Oxygen Delivery Method Room Air 03/09/24 22:30 03/09/24 23:00 03/09/24 23:04 Temperature 97.9 F Temperature Source Oral Pulse Rate 76 72 86 Pulse Rate [Left Radial] Respiratory Rate 18 Blood Pressure 115/72 125/78 118/74 Blood Pressure [Right Arm] Blood Pressure Mean [Right Arm] Blood Pressure Source Automatic Cuff Blood Pressure Source [Right Arm] Blood Pressure Position Supine 02 Sat by Pulse Oximetry 96 97 Oxygen Delivery Method Room Air Lab Data Lab results reviewed: Yes I reviewed the patient's lab results. Lab Results 03/09/24 20:40: Urine Color Yellow, Urine Appearance Clear, Urine pH 5.5, Ur Specific Davis >= 1.030, Urine Protein Negative, Urine Glucose (UA) Negative, Urine Ketones Negative, Urine Blood 2+ A, Urine Nitrate Negative, Urine Bilirubin Negative, Urine Urobilinogen 0.2, Ur Leukocyte Esterase Negative, Urine RBC 5-10, Urine WBC 3-5, Ur Squamous Epith Cells 5-10, Urine Bacteria 1+ 03/09/24 20:51: WBC 12.7 H, RBC 5.25, Hgb 14.8, Hct 43.6, MCV 83.0, MCH 28.2, MCHC 34.0, RDW 13.7, Plt Count 223, MPV 8.4, Neut % (Auto) 71.6, Lymph % (Auto) 20.5, [place] % (Auto) 4.9, Eos % (Auto) 1.8, Baso % (Auto) 1.1, Neut # (Auto) 9.1 H, Lymph # (Auto) 2.6, [place] # (Auto) 0.6, Eos # (Auto) 0.2, Baso # (Auto) 0.2, Sodium 138, Potassium 3.7, Chloride 108 H, Carbon Dioxide 24, Anion Gap 9.7, BUN 17, Creatinine 0.70, Estimated Creat Clear 121, Estimated GFR 88, Est GFR ( Amer) 106, Glucose 95, Calcium 9.9, Total Bilirubin 0.6, AST 31, ALT 26, Alkaline Phosphatase 116, Total Protein 7.9, Albumin 4.6, Globulin 3.3 H, Albumin/Globulin Ratio 1.4, Lipase 58, HIV 1&2 Antibody Rapid Nonreactive 03/09/24 20:51 03/09/24 20:51 Orders (Tests/Meds): ED MEDICATIONS Discontinued Medications Generic Name Dose Route Start Last Admin Trade Name Freq PRN Reason Stop Dose Admin Acetaminophen 1,000 mg 03/09/24 20:48 03/09/24 20:57 Acetaminophen 500mg Tab PO 03/09/24 20:49 1,000 mg ONCE ONE Administration Amoxicillin/Clavulanate Potassium 1 each 03/09/24 22:53 03/09/24 22:57 Amoxicillin/Clavulanate Potassium 875/125mg Tablet PO 03/09/24 22:54 1 each ONCE ONE Administration Dexamethasone Sodium Phosphate 10 mg 03/09/24 20:48 03/09/24 20:57 Dexamethasone 4mg/Ml 5ml Mdv IV 03/09/24 20:49 10 mg ONCE ONE Administration Iopamidol 75 ml 03/09/24 21:36 03/09/24 21:37 Iopamidol-370 (76%);100ml Bottle IV 03/09/24 21:37 75 ml ONCE ONE Administration Ketorolac Tromethamine 15 mg 03/09/24 20:48 03/09/24 20:58 Ketorolac 30mg/Ml Vial IV 03/09/24 20:49 15 mg ONCE ONE Administration Lidocaine 1 each 03/09/24 20:48 03/09/24 20:57 Lidocaine 5% Transdermal Patch TP 03/09/24 20:49 1 each ONCE ONE Administration Methocarbamol 500 mg 03/09/24 20:48 03/09/24 20:57 Methocarbamol 500mg Tablet PO 03/09/24 20:49 500 mg ONCE ONE Administration Ondansetron HCl 4 mg 03/09/24 23:03 03/09/24 23:14 Ondansetron 4mg Odt SL 03/09/24 23:04 Not Given ONCE ONE Oxycodone HCl 5 mg 03/09/24 23:04 03/09/24 23:13 Oxycodone 5mg Immediate Release Tablet PO 03/09/24 23:05 Not Given ONCE ONE Sodium Chloride 10 ml 03/09/24 21:36 03/09/24 21:37 Sodium Chloride 0.9% 10ml Syr (Rad Only) IV 04/08/24 21:35 10 ml NEEDED PRN Administration Maintain IV Site ORDERS Category Date Time Status CT abdomen pelvis w con Stat Cat Scan 03/09/24 20:[address] lumbar spine wo con Stat Cat Scan 03/09/24 20:46 Completed CBC w/Auto Diff [Complete Blood Count Auto Diff] Stat Lab 03/09/24 20:51 Completed CMP [Comprehensive Metabolic Panel] Stat Lab 03/09/24 20:51 Completed HIV (1&2) Antibody Rapid Stat Lab 03/09/24 20:51 Completed Hep C Ab with Reflex to RNA Stat Lab 03/09/24 20:51 Received Lipase Stat Lab 03/09/24 20:51 Completed UA [Urinalysis and Microscopic] Stat Lab 03/09/24 20:40 Completed Medical Decision Narrative: In summary patient is a 53-year-old female who presents to the emergency department for evaluation of bilateral low back pain. Patient is normotensive but tachycardic upon arrival, but afebrile. Physical exam is remarkable for bilateral, left greater than right, tenderness to percussion in the CVA area with no dorsal spine tenderness in the midline. Patient has no saddle anesthesia has no focal neurologic deficits. Bowel sounds are normal active she has no rebound or guarding or rigidity.. Differential diagnosis includes UTI versus pyelonephritis versus kidney stone versus degenerative disc disease versus pancreatitis etc. Initial workup will be conducted with hematologic labs CT scan abdomen pelvis CT scan lumbar spine urinalysis. Initial interventions include Lidoderm patch Tylenol Toradol. Initial workup reviewed by me shows that she has an elevated white count with a left shift with an absolute neutrophil count of 9.1 urinalysis is positive for 2+ blood but nitrite and leukocyte Estrace negative microscopic exam showed 5-10 reds 3-5 whites 5-10 epithelial cells 1+ bacteria and the remainder of her hematologic labs being nonactionable. My informal to rotation CT scan abdomen pelvis shows that she has descending colon diverticulitis without perforation.. Upon repeat evaluation patient reported improvement after initial intervention. Given this appropriate for discharge with prescription sent with Augmentin and prescription sent to her pharmacy first dose given here refer to gastroenterology. <Aracelis Roberts, DO - Last Filed: 03/10/24 00:01> Chandan Inquiry Pt receiving controlled substance: Yes Chandan was queried for this patient: Yes Risks and benefits of using a controlled substance: were discussed with pt by me Vital Signs: 03/09/24 20:19 03/09/24 21:01 03/09/24 22:00 Temperature 97.9 F Temperature Source Oral Pulse Rate 87 80 Pulse Rate [Left Radial] 104 H Respiratory Rate 18 Blood Pressure 112/70 116/76 Blood Pressure [Right Arm] 145/103 H Blood Pressure Mean [Right Arm] 117 Blood Pressure Source Blood Pressure Source [Right Arm] Automatic Cuff Blood Pressure Position 02 Sat by Pulse Oximetry 98 95 96 Oxygen Delivery Method Room Air 03/09/24 22:30 03/09/24 23:00 03/09/24 23:04 Temperature 97.9 F Temperature Source Oral Pulse Rate 76 72 86 Pulse Rate [Left Radial] Respiratory Rate 18 Blood Pressure 115/72 125/78 118/74 Blood Pressure [Right Arm] Blood Pressure Mean [Right Arm] Blood Pressure Source Automatic Cuff Blood Pressure Source [Right Arm] Blood Pressure Position Supine 02 Sat by Pulse Oximetry 96 97 Oxygen Delivery Method Room Air Lab Data Lab Results 03/09/24 20:40: Urine Color Yellow, Urine Appearance Clear, Urine pH 5.5, Ur Specific Davis >= 1.030, Urine Protein Negative, Urine Glucose (UA) Negative, Urine Ketones Negative, Urine Blood 2+ A, Urine Nitrate Negative, Urine Bilirubin Negative, Urine Urobilinogen 0.2, Ur Leukocyte Esterase Negative, Urine RBC 5-10, Urine WBC 3-5, Ur Squamous Epith Cells 5-10, Urine Bacteria 1+ 03/09/24 20:51: WBC 12.7 H, RBC 5.25, Hgb 14.8, Hct 43.6, MCV 83.0, MCH 28.2, MCHC 34.0, RDW 13.7, Plt Count 223, MPV 8.4, Neut % (Auto) 71.6, Lymph % (Auto) 20.5, [place] % (Auto) 4.9, Eos % (Auto) 1.8, Baso % (Auto) 1.1, Neut # (Auto) 9.1 H, Lymph # (Auto) 2.6, [place] # (Auto) 0.6, Eos # (Auto) 0.2, Baso # (Auto) 0.2, Sodium 138, Potassium 3.7, Chloride 108 H, Carbon Dioxide 24, Anion Gap 9.7, BUN 17, Creatinine 0.70, Estimated Creat Clear 121, Estimated GFR 88, Est GFR ( Amer) 106, Glucose 95, Calcium 9.9, Total Bilirubin 0.6, AST 31, ALT 26, Alkaline Phosphatase 116, Total Protein 7.9, Albumin 4.6, Globulin 3.3 H, Albumin/Globulin Ratio 1.4, Lipase 58, HIV 1&2 Antibody Rapid Nonreactive Orders (Tests/Meds): ED MEDICATIONS Discontinued Medications Generic Name Dose Route Start Last Admin Trade Name Fredy PRN Reason Stop Dose Admin Acetaminophen 1,000 mg 03/09/24 20:48 03/09/24 20:57 Acetaminophen 500mg Tab PO 03/09/24 20:49 1,000 mg ONCE ONE Administration Amoxicillin/Clavulanate Potassium 1 each 03/09/24 22:53 03/09/24 22:57 Amoxicillin/Clavulanate Potassium 875/125mg Tablet PO 03/09/24 22:54 1 each ONCE ONE Administration Dexamethasone Sodium Phosphate 10 mg 03/09/24 20:48 03/09/24 20:57 Dexamethasone 4mg/Ml 5ml Mdv IV 03/09/24 20:49 10 mg ONCE ONE Administration Iopamidol 75 ml 03/09/24 21:36 03/09/24 21:37 Iopamidol-370 (76%);100ml Bottle IV 03/09/24 21:37 75 ml ONCE ONE Administration Ketorolac Tromethamine 15 mg 03/09/24 20:48 03/09/24 20:58 Ketorolac 30mg/Ml Vial IV 03/09/24 20:49 15 mg ONCE ONE Administration Lidocaine 1 each 03/09/24 20:48 03/09/24 20:57 Lidocaine 5% Transdermal Patch TP 03/09/24 20:49 1 each ONCE ONE Administration Methocarbamol 500 mg 03/09/24 20:48 03/09/24 20:57 Methocarbamol 500mg Tablet PO 03/09/24 20:49 500 mg ONCE ONE Administration Ondansetron HCl 4 mg 03/09/24 23:03 03/09/24 23:14 Ondansetron 4mg Odt SL 03/09/24 23:04 Not Given ONCE ONE Oxycodone HCl 5 mg 03/09/24 23:04 03/09/24 23:13 Oxycodone 5mg Immediate Release Tablet PO 03/09/24 23:05 Not Given ONCE ONE Sodium Chloride 10 ml 03/09/24 21:36 03/09/24 21:37 Sodium Chloride 0.9% 10ml Syr (Rad Only) IV 04/08/24 21:35 10 ml NEEDED PRN Administration Maintain IV Site ORDERS Category Date Time Status CT abdomen pelvis w con Stat Cat Scan 03/09/24 20:[address] lumbar spine wo con Stat Cat Scan 03/09/24 20:46 Completed CBC w/Auto Diff [Complete Blood Count Auto Diff] Stat Lab 03/09/24 20:51 Completed CMP [Comprehensive Metabolic Panel] Stat Lab 03/09/24 20:51 Completed HIV (1&2) Antibody Rapid Stat Lab 03/09/24 20:51 Completed Hep C Ab with Reflex to RNA Stat Lab 03/09/24 20:51 Received Lipase Stat Lab 03/09/24 20:51 Completed UA [Urinalysis and Microscopic] Stat Lab 03/09/24 20:40 Completed Critical Care <AMNA Choi - Last Filed: 03/09/24 23:09> Critical Care Time Critical Care Time: No
--- NOTE | 2024-03-09 20:46 | CT_ITS ---
PROCEDURE INFORMATION: Exam: CT Abdomen And Pelvis With Contrast Exam date and time: 03/09/2024 9:37 PM Age: 53 years old Clinical indication: Abdominal pain; Additional info: Bilateral flank pain TECHNIQUE: Imaging protocol: Computed tomography of the abdomen and pelvis with contrast. Radiation optimization: All CT scans at this facility use at least one of these dose optimization techniques: automated exposure control; mA and/or kV adjustment per patient size (includes targeted exams where dose is matched to clinical indication); or iterative reconstruction. Contrast material: ISOVUE; Contrast volume: 75 ml; Contrast route: IV; COMPARISON: CT ABDOMEN PELVIS WO/W CON 12/03/2023 10:59 AM FINDINGS: Esophagus: The esophagus is normal. Liver: The liver is normal. Gallbladder and biliary ducts: The gallbladder is normal. Pancreas: Pancreas appears normal. Spleen: Spleen is normal Adrenal glands: The adrenal glands appear normal. Kidneys and ureters: Small cyst right mid pole kidney. No hydronephrosis. Stomach and bowel: Mild wall thickening and siri-focal infiltration of the colon at the level of the splenic flexure axial image 32-39. Scattered colonic diverticula. The stomach is normal. Appendix: Normal appendix. Intraperitoneal space: Unremarkable. No free air. No significant fluid collection. Vasculature: Portal vein, splenic vein, SMV are patent. The aorta is normal. Visceral arteries are patent. Lymph nodes: No free air or fluid or adenopathy. Urinary bladder: The bladder is normal. Reproductive: There has been a hysterectomy. Bones/joints: Sclerosis left ischium stable compared with 12/03/2023. There is also stable compared with 12/08/2022. Soft tissues: Unremarkable. IMPRESSION: 1. No free air or fluid or adenopathy. 2. Mild wall thickening and siri-focal infiltration of the colon at the level of the splenic flexure axial image 3/32-39. Findings consistent with uncomplicated diverticulitis. 3. Scattered colonic diverticula. 4. Normal appendix. 5. No hydronephrosis or urinary tract calculi. 6. Other (less critical/noncritical/incidental) findings as above; please refer to the body of report for further details. COMMENTS: Consistent with the [employer]'s Incidental Findings Committee white paper (J Am Lluvia Radiol 2018): Any incidental renal lesion less than 1 cm or classified as too small to characterize, or any incidental cystic renal lesion characterized as simple-appearing, is likely benign. No follow-up imaging is recommended for these lesions per consensus recommendations based on imaging criteria.
--- NOTE | 2024-03-09 20:46 | CT_ITS ---
PROCEDURE INFORMATION: Exam: CT Lumbar Spine Without Contrast Exam date and time: 03/09/2024 9:34 PM Age: 53 years old Clinical indication: Low back pain; Additional info: Bilateral flank pain TECHNIQUE: Imaging protocol: Computed tomography of the lumbar spine without contrast. Radiation optimization: All CT scans at this facility use at least one of these dose optimization techniques: automated exposure control; mA and/or kV adjustment per patient size (includes targeted exams where dose is matched to clinical indication); or iterative reconstruction. COMPARISON: CT ABDOMEN PELVIS WO/W CON 12/03/2023 10:59 AM FINDINGS: Bones/joints: No acute fracture. Normal alignment. No significant disc bulge or herniation. No severe spinal canal stenosis. No significant neural foraminal narrowing. Sclerosis of the left ischium stable compared with multiple comparison films including sub 04/13/2024 and 12/08/2022. Soft tissues: Unremarkable. IMPRESSION: No acute findings.
[2024-03-09 20:55] LABS: Microscopic, Urine URINE MICROSCOPIC (MICROSCOPIC)
[2024-03-09 20:57] LABS: Appearance,Urine CLEAR (Clear); Bilirubin,Urine Negative (Negative); Blood, Urine 2+ (Negative); Color,Urine YELLOW (Yellow); Glucose,Urine (UA) Negative (Negative); Ketones,Urine Negative (Negative); Leukocyte Esterase,Urine Negative (Negative); Nitrate,Urine Negative (Negative); PH,Urine 5.5 (5.0-8.5); Protein,Urine Negative (Negative); Specific Gravity, Urine >= 1.030 (1.005-1.030); Urobilinogen,Urine 0.2 EU/dl (0.2)
[2024-03-09] MEDS: LIDOCAINE 5% TRANSDERMAL PATCH 1 EACH TP (20:57)
[2024-03-09] MEDS: ACETAMINOPHEN 500MG TAB 1000 MG PO (20:57)
[2024-03-09] MEDS: DEXAMETHASONE 4MG/ML 5ML MDV 10 MG IV (20:57)
[2024-03-09] MEDS: METHOCARBAMOL 500MG TABLET 500 MG PO (20:57)
[2024-03-09] MEDS: KETOROLAC 30MG/ML VIAL 15 MG IV (20:58)
[2024-03-09 21:01] VITALS: BP 112/70; PULSE 87; O2SAT 95
[2024-03-09 21:14] LABS: Bacteria,Urine 1+ /lpf
[2024-03-09 21:19] LABS: Basophils # 0.2 K/mm3 (0-0.2); Basophils % 1.1 % (0.1-2.0); Eosinophils # 0.2 K/mm3 (0.0-0.4); Eosinophils % 1.8 % (0.1-12.0); Hematocrit 43.6 % (37.0-47.0); Hemoglobin 14.8 g/dL (12.2-16.2); Lymphocytes # 2.6 K/mm3 (0.7-4.5); Lymphocytes % 20.5 % (10-50); Mean Corpuscular Hemoglobin 28.2 pg (27.0-31.2); Mean Platelet Volume 8.4 fl (7.4-10.4); Monocytes # 0.6 K/mm3 (0.1-1.0); Monocytes % 4.9 % (1.7-9.3); Neutrophils # 9.1 K/mm3 (1.8-7.8); Neutrophils % 71.6 % (37.0-80.0); Platelet Count 223 K/mm3 (142-424); Red Blood Count 5.25 M/mm3 (4.20-5.40); Red Cell Distribution Width 13.7 % (11.5-17.5); White Blood Count 12.7 K/mm3 (4.8-10.8)
[2024-03-09 21:21] LABS: Albumin Level 4.6 g/dl (3.5-5.0); Chloride 108 mmol/L (98-107); Potassium 3.7 mmoL/L (3.5-5.1); Sodium 138 mmol/L (136-145)
[2024-03-09 21:24] LABS: Alanine Aminotransferase 26 U/L (12-78); Albumin/Globulin Ratio 1.4 (1.1-1.8); Alkaline Phosphatase 116 U/L (38-126); Anion Gap 9.7 mEq/L (5-15); Aspartate Amino Transferase 31 U/L (14-36); Bilirubin,Total 0.6 mg/dl (0.2-1.3); Blood Urea Nitrogen 17 mg/dl (7-17); Calcium 9.9 mg/dl (8.4-10.2); Carbon Dioxide 24 mmol/L (22.0-30.0); Creatinine Clearance Estimated 121 mL/min (50-200); Estimated Glomerular Filt Rate 88 ml/min (>60); GFR (African American) 106 ML/MIN (>60); Globulin 3.3 g/dL (1.3-3.2); Glucose 95 mg/dl (74-100); Lipase 58 U/L (23-300); Total Protein,Serum 7.9 g/dl (6.3-8.2)
[2024-03-09] MEDS: IOPAMIDOL-370 (76%);100ML BOTTLE 75 ML IV (21:37)
[2024-03-09] MEDS: SODIUM CHLORIDE 0.9% 10ML SYR (RAD ONLY) 10 ML IV (21:37)
[2024-03-09 22:00] VITALS: BP 116/76; PULSE 80; O2SAT 96
[2024-03-09 22:07] LABS: HIV (1&2) Antibody Rapid NONREACTIVE (NONREACTIVE)
[2024-03-09 22:30] VITALS: BP 115/72; PULSE 76; O2SAT 96
[2024-03-09] MEDS: AMOXICILLIN/CLAVULANATE POTASSIUM 875/125MG TABLET 1 EACH PO (22:57)
[2024-03-09 23:00] VITALS: BP 125/78; PULSE 72; O2SAT 97
[2024-03-09 23:04] VITALS: BP 118/74; PULSE 86; RESP 18; TEMP 36.6; O2SAT 100
== END 2024-03-09 23:15 | disposition home or self-care (01) ==
PROVIDERS: Physician Assistant; Emergency Provider Emergency Medicine; PCP Internal Medicine
DX: K57.32 Diverticulitis of large intestine without perforation or abscess without bleeding (principal)
CPT/HCPCS: 72131; 74177; 80053; 81001; 83690; 85025; 87389; 96374; 96375; 99285; J1100; J1885; Q0162; Q9967

== ENCOUNTER 2024-07-27 09:15 | Emergency (ER) | payer MEDICAID, SELFPAY ==
[2024-07-27 09:36] VITALS: BP 108/77; PULSE 104; RESP 20; TEMP 37; O2SAT 98; BMI 32.9
--- NOTE | 2024-07-27 09:36 | XR_ITS ---
FINAL REPORT CLINICAL HISTORY: cough, cp FINDINGS: 2 views of the chest were obtained . The heart is normal in size. The mediastinum is within normal limits. The lungs are clear. There is no pneumothorax. Osseous structures are unremarkable. IMPRESSION: No acute cardiopulmonary process. Reviewed, Interpreted and Dictated by Lina Diaz MD Transcribed by Samina Bates Authenticated and [facility]
[2024-07-27 09:40] LABS: Coronavirus 19, PCR Not Detected (NotDetected); Influenza A, PCR Not Detected (NotDetected); Influenza B, PCR Not Detected (NotDetected)
--- NOTE | 2024-07-27 09:48 | HMH.EDGENADL ---
Discharge Plan Disposition Patient Disposition: Home, Self-Care Prescriptions Prescriptions: New gribygeajnciyzl-rkdkwrgzn-FB [Bromfed DM] 2-30-10 mg/5 mL syrup 5 ml PO Q6H PRN (Reason: cold symptoms) Qty: 118 0RF doxycycline hyclate 100 mg tablet 100 mg PO BID 7 Days Qty: 14 0RF No Action albuterol sulfate 90 mcg/actuation HFA aerosol inhaler 2 puff IH Q6H Qty: 6.7 2RF Rx Instructions: administer with spacer ibuprofen 800 mg tablet 800 mg PO Q8H Qty: 90 0RF Rx Instructions: Only take as needed hydroxyzine pamoate 25 mg capsule 25 mg PO TID PRN (Reason: Anxiety) Qty: 90 1RF ropinirole 1 mg tablet 1 mg PO DAILY Qty: 30 2RF estradiol 0.01 % (0.1 mg/gram) cream See Rx Instructions vaginal .COMPLEX Qty: 42.5 2RF Rx Instructions: Using finger technique daily for two weeks and then twice weekly vaginally; omeprazole 20 mg capsule,delayed release(DR/EC) 20 mg PO DAILY Qty: 90 3RF Vraylar 1.5 mg capsule 1.5 mg PO DAILY Qty: 90 2RF diazepam 5 mg tablet 5 mg PO BID Qty: 45 1RF fluticasone propionate 50 mcg/actuation spray,suspension See Rx Instructions .ROUTE .COMPLEX Qty: 16 2RF Dose Instruction: SHAKE LIQUID AND USE 1 SPRAY IN EACH NOSTRIL DAILY FOR ALLERGIES Rx Instructions: SHAKE LIQUID AND USE 1 SPRAY IN EACH NOSTRIL DAILY FOR ALLERGIES loratadine [Claritin] 10 mg tablet 10 mg PO DAILY Qty: 90 3RF montelukast 10 mg tablet 10 mg PO DAILY Qty: 90 3RF amoxicillin-pot clavulanate 875-125 mg tablet 1 tab PO BID Qty: 20 0RF ondansetron 4 mg tablet,disintegrating 4 mg PO Q8H PRN (Reason: nausea and vomiting) 4 Days Qty: 12 0RF oxycodone 5 mg tablet 5 mg PO Q8H PRN (Reason: pain) Qty: 12 0RF naproxen 500 mg tablet 500 mg PO BID Qty: 20 0RF Referrals Follow up/Referrals: Brian Dunham APRN [Primary Care Provider] - See instructions Activity Restrictions/Add. Instructions Additional Instructions/Restrictions: At this time it was felt you are safe to be discharged home. If new or worsening symptoms please do not hesitate to return the emergency department. Within 1 week please follow-up with your family doctor to ensure things are headed in the right direction. Clinical Impressions Clinical Impression: Interstitial pneumonia Print Language Print Language: Malay Discharge ED Provider: Jason Robledo General Adult HPI General Chief complaint: Upper Respiratory Infection Stated complaint: chills cough tiredness Time Seen by Provider: 07/27/24 09:20 Mode of Arrival: Ambulatory Source of Information: Patient Description of Symptoms (Recalled from ER Triage Doc. by RN): c/o cough, cold and hot feeling, chest hurts while coughing, no energy since yesterday History of Present Illness HPI narrative: Patient is a 54-year-old female who presents emergency department for evaluation of cough. Onset was acute, over the last 24 to 48 hours, decreased energy from baseline. Cough is productive. Chest only hurts while coughing. No chest pain at rest. No abdominal pain reported. No other acute complaints at this time. Related Data Previous Rx's ?Medication ?Instructions ?Recorded albuterol sulfate 90 mcg/actuation 2 puff inhalation Q6H allergies 02/21/22 aerosol inhaler #6.7 grams hydroxyzine pamoate 25 mg capsule 25 mg PO TID PRN Anxiety #90 caps 05/21/23 ibuprofen 800 mg tablet 800 mg PO Q8H Pain #90 tabs 09/16/23 ropinirole 1 mg tablet 1 mg PO DAILY #30 tabs 12/03/23 estradiol 0.01% (0.1 mg/gram) See Rx Instructions vaginal 12/28/23 vaginal cream .COMPLEX #42.5 grams amoxicillin 875 mg-potassium 1 tab PO BID #20 tabs 03/09/24 clavulanate 125 mg tablet naproxen 500 mg tablet 500 mg PO BID #20 tabs 03/09/24 ondansetron 4 mg disintegrating 4 mg PO Q8H PRN nausea and 03/09/24 tablet vomiting 4 days #12 tabs oxycodone 5 mg tablet 5 mg PO Q8H PRN pain #12 tabs 03/09/24 cariprazine 1.5 mg capsule 1.5 mg PO DAILY #90 caps 03/11/24 (Vraylar) diazepam 5 mg tablet 5 mg PO BID Anxiety #45 tabs 03/11/24 omeprazole 20 mg capsule,delayed 20 mg PO DAILY #90 caps 03/11/24 release fluticasone propionate 50 See Rx Instructions .Route 06/08/24 mcg/actuation nasal .COMPLEX #16 grams spray,suspension loratadine 10 mg tablet (Claritin) 10 mg PO DAILY #90 tabs 06/08/24 montelukast 10 mg tablet 10 mg PO DAILY allergies #90 tabs 06/08/24 amwzfzpaxisdpfo-pviepicbowxjcnt-WB 5 ml PO Q6H PRN cold symptoms #118 07/27/24 2 mg-30 mg-10 mg/5 mL oral syrup mL (Bromfed DM) doxycycline hyclate 100 mg tablet 100 mg PO BID interstitial 07/27/24 pneumonia 7 days #14 tabs Allergies Allergy/AdvReac Type Severity Reaction Status Date / Time No Known Allergies Allergy Verified 03/11/24 09:56 [facility] Disclaimer: The information contained in this section may have been updated after the patient was seen, as this information can be updated by other users. 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 current occupational exposures/hazards: No caffeine: Yes Have you lived/traveled outside [place] in past 30 days?: No Contact w/someone who lives/traveled outside US past 30 days?: No Exposure to someone with infectious disease in past 14 days?: No Do you have a fever (greater than 100.4 F or 38 C)?: No Have you tested positive for COVID-19: No Exposed to someone with COVID-19 in past 14 days?: No Do you have a sore throat?: No Do you have a cough?: Yes Do you have any weakness?: Yes Do you have any diarrhea?: No Are you experiencing any unusual bleeding?: No Do you have any muscle aches/pain?: No Do you have any abdominal pain?: No Are you experiencing loss of taste or smell?: No Other Medical History Have you received the Flu Vaccine for this season: No Have you received the Pneumonia Vaccine: No ROS Obtained: Yes Systems reviewed as appropriate & no additional complaints except as documented Physical Exam General General appearance: alert and in no apparent distress Head Head exam: atraumatic and normocephalic Eye Eye exam: Present PERRL and EOMI ENT ENT exam: Present normal oropharynx and mucous membranes moist Neck Neck exam: Present normal inspection Chest Chest inspection: Present normal inspection and symmetric chest wall rise Respiratory Respiratory exam: Present normal lung sounds bilaterally; Absent respiratory distress Cardiovascular Cardiovascular exam: Present regular rate and normal rhythm Abdominal Exam Abdominal exam: Present soft; Absent tenderness Extremities Exam Extremities exam: Present normal inspection Neurological Exam Neurological exam: Present alert Psychiatric Psychiatric exam: Present normal affect Skin Skin exam: Present warm and dry Medical Decision Making Medical Records Screening: Per USPSTF and CDC recommendations, given the prevalence of disease in our region, it is our hospital?s policy to screen for HIV and viral Hepatitis for all patients aged 18 and over and those with ongoing risk factors. Chandan Inquiry Pt receiving controlled substance: No Vital Signs: 07/27/24 09:36 Temperature 98.6 F Temperature Source Oral Pulse Rate [Left Radial] 104 H Respiratory Rate 20 Blood Pressure [Right Arm] 108/77 L Blood Pressure Mean [Right Arm] 87 02 Sat by Pulse Oximetry 98 Oxygen Delivery Method Room Air Lab Data Lab Results 07/27/24 09:28: SARS-CoV-2 (PCR) Not detected, Influenza A Untype (PCR) Not detected, Influenza Type B (PCR) Not detected Orders (Tests/Meds): ORDERS Category Date Time Status CXR 2 view (NOT portable) [XR chest 2V] Stat Exams 07/27/24 09:36 Completed Rapid PCR Covid and Flu A/B Stat Lab 03/05/25 09:28 Completed Medical Decision Narrative: In summary patient is a 54-year-old female with past medical history described above who presents emergency department for evaluation of cough. Patient is hemodynamically stable and nontoxic-appearing upon arrival, afebrile. Slight tachycardia. Patient's history and physical is strongly consistent with viral syndrome, differential includes pneumonia, among others. No concern for PE based on history. Given this workup with hematologic labs was considered will be deferred. Limited workup we conducted a viral swab and chest x-ray. Viral swab reviewed by me and is negative. Chest x-ray informally interpreted by me, no acute lobar opacities or large pneumothorax, however there does appear to be interstitial opacities and given significant cough is consistent with atypical pneumonia. Given this patient will be discharged with a course of doxycycline and cough medicine was given return precautions. Group Work Program Director disclaimer Much of this encounter note is an electronic supervisor wall mirror department spoken language to printed text. Electronic supervisor wall mirror department of the spoken language may permit errors. Although I have reviewed the note, some errors may still exist. Critical Care Critical Care Time Critical Care Time: No
[2024-07-27 10:36] VITALS: BP 109/63; PULSE 86; RESP 13; TEMP 36.7; O2SAT 95
== END 2024-07-27 10:37 | disposition home or self-care (01) ==
PROVIDERS: Emergency Provider Emergency Medicine; PCP Nurse Practitioner Family
DX: J84.9 Interstitial pulmonary disease, unspecified (principal); R05.9 Cough, unspecified; R07.89 Other chest pain; R53.83 Other fatigue; R68.83 Chills (without fever); F17.210 Nicotine dependence, cigarettes, uncomplicated
CPT/HCPCS: 71046; 87636; 99283

== ENCOUNTER 2024-07-27 21:05 | Emergency (ER) | payer MEDICAID, SELFPAY ==
[2024-07-27 22:08] VITALS: BP 128/87; PULSE 81; RESP 20; TEMP 36.9; O2SAT 98; BMI 30.9
--- NOTE | 2024-07-27 22:58 | PC.NURSE ---
pt to room 4, given gown and warm blankets and asked to change. Pt AOx4, NAD noted, RR even and non labored, skin pwd.
--- NOTE | 2024-07-27 23:12 | HMH.EDGENADL ---
Discharge Plan Disposition Patient Disposition: Home, Self-Care Prescriptions Prescriptions: New ondansetron HCl 4 mg tablet 4 mg PO Q8H PRN (Reason: nausea and vomiting) 5 Days Qty: 30 0RF No Action albuterol sulfate 90 mcg/actuation HFA aerosol inhaler 2 puff IH Q6H Qty: 6.7 2RF Rx Instructions: administer with spacer ibuprofen 800 mg tablet 800 mg PO Q8H Qty: 90 0RF Rx Instructions: Only take as needed hydroxyzine pamoate 25 mg capsule 25 mg PO TID PRN (Reason: Anxiety) Qty: 90 1RF ropinirole 1 mg tablet 1 mg PO DAILY Qty: 30 2RF estradiol 0.01 % (0.1 mg/gram) cream See Rx Instructions vaginal .COMPLEX Qty: 42.5 2RF Rx Instructions: Using finger technique daily for two weeks and then twice weekly vaginally; omeprazole 20 mg capsule,delayed release(DR/EC) 20 mg PO DAILY Qty: 90 3RF Vraylar 1.5 mg capsule 1.5 mg PO DAILY Qty: 90 2RF diazepam 5 mg tablet 5 mg PO BID Qty: 45 1RF fluticasone propionate 50 mcg/actuation spray,suspension See Rx Instructions .ROUTE .COMPLEX Qty: 16 2RF Dose Instruction: SHAKE LIQUID AND USE 1 SPRAY IN EACH NOSTRIL DAILY FOR ALLERGIES Rx Instructions: SHAKE LIQUID AND USE 1 SPRAY IN EACH NOSTRIL DAILY FOR ALLERGIES loratadine [Claritin] 10 mg tablet 10 mg PO DAILY Qty: 90 3RF montelukast 10 mg tablet 10 mg PO DAILY Qty: 90 3RF amoxicillin-pot clavulanate 875-125 mg tablet 1 tab PO BID Qty: 20 0RF ondansetron 4 mg tablet,disintegrating 4 mg PO Q8H PRN (Reason: nausea and vomiting) 4 Days Qty: 12 0RF oxycodone 5 mg tablet 5 mg PO Q8H PRN (Reason: pain) Qty: 12 0RF naproxen 500 mg tablet 500 mg PO BID Qty: 20 0RF vatxhlkncbegczg-dkcorlqya-WF [Bromfed DM] 2-30-10 mg/5 mL syrup 5 ml PO Q6H PRN (Reason: cold symptoms) Qty: 118 0RF doxycycline hyclate 100 mg tablet 100 mg PO BID 7 Days Qty: 14 0RF Referrals Follow up/Referrals: Brian Dunham APRN [Primary Care Provider] - See instructions Activity Restrictions/Add. Instructions Additional Instructions/Restrictions: Please take tylenol and ibuprofen as needed for pain, take zofran for nausea and vomiting. Clinical Impressions Clinical Impression: Acute viral syndrome, Headache, Nausea vomiting and diarrhea Print Language Print Language: Albanian Discharge ED Provider: Terry De Paz General Adult HPI General Chief complaint: Nausea/Vomiting/Diarrhea Stated complaint: pneumonia+ vomiting, diarrhea, chills Time Seen by Provider: 07/27/24 23:00 Mode of Arrival: Ambulatory Source of Information: Patient and Spouse Description of Symptoms (Recalled from ER Triage Doc. by RN): Pt states she was seen here earlier today and was diagnosed pneumonia. Pt states she nows n/v/d and is unable to eat. Pt states she is feeling more fatigued. Pt states her vomiting started after she took the second dose of her antibiotic History of Present Illness HPI narrative: 54-year-old female presents to the ER again today because of worsening symptoms. She was seen here earlier today with a cough and was diagnosed with pneumonia. She returns because she now has headache, nausea vomiting and diarrhea, body aches etc. COVID flu is negative at prior visit. Related Data Previous Rx's ?Medication ?Instructions ?Recorded albuterol sulfate 90 mcg/actuation 2 puff inhalation Q6H allergies 02/21/22 aerosol inhaler #6.7 grams hydroxyzine pamoate 25 mg capsule 25 mg PO TID PRN Anxiety #90 caps 05/21/23 ibuprofen 800 mg tablet 800 mg PO Q8H Pain #90 tabs 09/16/23 ropinirole 1 mg tablet 1 mg PO DAILY #30 tabs 12/03/23 estradiol 0.01% (0.1 mg/gram) See Rx Instructions vaginal 12/28/23 vaginal cream .COMPLEX #42.5 grams amoxicillin 875 mg-potassium 1 tab PO BID #20 tabs 03/09/24 clavulanate 125 mg tablet naproxen 500 mg tablet 500 mg PO BID #20 tabs 03/09/24 ondansetron 4 mg disintegrating 4 mg PO Q8H PRN nausea and 03/09/24 tablet vomiting 4 days #12 tabs oxycodone 5 mg tablet 5 mg PO Q8H PRN pain #12 tabs 03/09/24 cariprazine 1.5 mg capsule 1.5 mg PO DAILY #90 caps 03/11/24 (Vraylar) diazepam 5 mg tablet 5 mg PO BID Anxiety #45 tabs 03/11/24 omeprazole 20 mg capsule,delayed 20 mg PO DAILY #90 caps 03/11/24 release fluticasone propionate 50 See Rx Instructions .Route 06/08/24 mcg/actuation nasal .COMPLEX #16 grams spray,suspension loratadine 10 mg tablet (Claritin) 10 mg PO DAILY #90 tabs 06/08/24 montelukast 10 mg tablet 10 mg PO DAILY allergies #90 tabs 06/08/24 hoestqklpftxgoo-iojgjfnjtrqqhxj-DU 5 ml PO Q6H PRN cold symptoms #118 07/27/24 2 mg-30 mg-10 mg/5 mL oral syrup mL (Bromfed DM) doxycycline hyclate 100 mg tablet 100 mg PO BID interstitial 07/27/24 pneumonia 7 days #14 tabs ondansetron HCl 4 mg tablet 4 mg PO Q8H PRN nausea and 07/28/24 vomiting 5 days #30 tabs Allergies Allergy/AdvReac Type Severity Reaction Status Date / Time No Known Allergies Allergy Verified 03/11/24 09:56 [facility] Disclaimer: The information contained in this section may have been updated after the patient was seen, as this information can be updated by other users. 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 current occupational exposures/hazards: No caffeine: Yes Have you lived/traveled outside US in past 30 days?: No Contact w/someone who lives/traveled outside US past 30 days?: No Exposure to someone with infectious disease in past 14 days?: No Do you have a fever (greater than 100.4 F or 38 C)?: Yes Have you tested positive for COVID-19: No Exposed to someone with COVID-19 in past 14 days?: No Do you have a sore throat?: No Do you have a cough?: No Do you have any weakness?: Yes Do you have any diarrhea?: Yes Are you experiencing any unusual bleeding?: No Do you have any muscle aches/pain?: Yes Do you have any abdominal pain?: No Are you experiencing loss of taste or smell?: No Other Medical History Have you received the Flu Vaccine for this season: No Have you received the Pneumonia Vaccine: No ROS Obtained: Yes All systems reviewed & no additional complaints except as documented Physical Exam General General appearance: alert and in no apparent distress Head Head exam: atraumatic and normocephalic Eye Eye exam: Present normal appearance, PERRL and EOMI ENT ENT exam: Present normal oropharynx and normal external ear exam Neck Neck exam: Present normal inspection and full ROM Chest Chest inspection: Present normal inspection and symmetric chest wall rise; Absent tenderness Respiratory Respiratory exam: Present normal lung sounds bilaterally; Absent respiratory distress Cardiovascular Cardiovascular exam: Present regular rate and normal rhythm Abdominal Exam Abdominal exam: Present soft; Absent distention, tenderness or guarding Extremities Exam Extremities exam: Present normal inspection; Absent edema or joint swelling Back Exam Back exam: Present normal inspection; Absent tenderness Neurological Exam Neurological exam: Present alert and oriented X3; Absent motor sensory deficit Psychiatric Psychiatric exam: Present normal affect and normal mood Skin Skin exam: Present warm, dry and normal color Lymphatic Lymphatic Findings: no adenopathy Medical Decision Making Medical Records Medical records reviewed: Yes I reviewed the patient's medical records. Screening: Per USPSTF and CDC recommendations, given the prevalence of disease in our region, it is our hospital?s policy to screen for HIV and viral Hepatitis for all patients aged 18 and over and those with ongoing risk factors. Chandan Inquiry Pt receiving controlled substance: No Chandan was queried for this patient: No Vital Signs: 07/27/24 22:08 07/27/24 23:30 07/28/24 00:00 Temperature 98.4 F Temperature Source Oral Pulse Rate 76 76 Pulse Rate [Right] 81 Respiratory Rate 20 Blood Pressure 123/87 120/79 Blood Pressure [Right Arm] 128/87 Blood Pressure Mean [Right Arm] 100 Blood Pressure Source [Right Arm] Automatic Cuff Blood Pressure Position [Right Arm] Sitting 02 Sat by Pulse Oximetry 98 94 L 94 L Oxygen Delivery Method Room Air Room Air 07/28/24 00:31 07/28/24 00:58 Temperature 98.7 F Temperature Source Pulse Rate 67 72 Pulse Rate [Right] Respiratory Rate 14 Blood Pressure 99/56 L 99/56 L Blood Pressure [Right Arm] Blood Pressure Mean [Right Arm] Blood Pressure Source [Right Arm] Blood Pressure Position [Right Arm] 02 Sat by Pulse Oximetry 95 Oxygen Delivery Method Room Air Lab Data Lab results reviewed: Yes I reviewed the patient's lab results. Orders (Tests/Meds): ED MEDICATIONS Discontinued Medications Generic Name Dose Route Start Last Admin Trade Name Freq PRN Reason Stop Dose Admin Acetaminophen 1,000 mg 07/27/24 23:08 07/27/24 23:16 Acetaminophen 500mg Tab PO 07/27/24 23:09 1,000 mg ONCE ONE Administration Diphenhydramine HCl 25 mg 07/27/24 23:10 07/27/24 23:16 Diphenhydramine 25mg Capsule PO 07/27/24 23:11 25 mg ONCE ONE Administration Ketorolac Tromethamine 30 mg 07/27/24 23:08 07/27/24 23:16 Ketorolac 30mg/Ml Vial IV 07/27/24 23:09 30 mg ONCE ONE Administration Prochlorperazine Maleate 10 mg 07/27/24 23:10 07/27/24 23:15 Prochlorperazine 10mg Tablet PO 07/27/24 23:11 10 mg ONCE ONE Administration Medical Decision Narrative: 54-year-old female presents for flulike illness with headache body aches nausea vomiting cough. History was obtained via interactive discussion with patient, chart review. On arrival, patient is [afebrile, hemodynamically stable, satting appropriately, alert, oriented x4, GCS 15], moving all extremities spontaneously. Full physical exam performed and significant for clear lungs bilaterally, no focal neurologic deficit, benign abdominal exam Differential includes but is not limited to URI, pneumonia, gastroenteritis. Patient was given Tylenol Toradol Compazine Benadryl for symptomatic management and correction of underlying abnormalities. I reviewed the patient's previous ED visit. She was diagnosed with pneumonia and discharged with doxycycline. Her chest x-ray appears relatively benign to me.. On re-evaluation, patient reports marked symptomatic improvement Labs and chest x-ray was considered, but deemed unnecessary due to history and exam. Given patient history, exam and workup, patient's presentation most likely represents viral syndrome given the constellation of symptoms that she has. She is discharged in stable condition with return precautions instructions regarding symptomatic care. Given a prescription for Zofran.. Procedures Risk/Benefits of Procedure(s) Were Explained: Yes Critical Care Critical Care Time Critical Care Time: No
[2024-07-27] MEDS: PROCHLORPERAZINE 10MG TABLET 10 MG PO (23:15)
[2024-07-27] MEDS: ACETAMINOPHEN 500MG TAB 1000 MG PO (23:16)
[2024-07-27] MEDS: KETOROLAC 30MG/ML VIAL 30 MG IV (23:16)
[2024-07-27] MEDS: diphenhydrAMINE 25MG CAPSULE 25 MG PO (23:16)
[2024-07-27 23:30] VITALS: BP 123/87; PULSE 76; O2SAT 94
[2024-07-28] VITALS: BP 120/79; PULSE 76; O2SAT 94
[2024-07-28 00:31] VITALS: BP 99/56; PULSE 67; O2SAT 95
[2024-07-28 00:58] VITALS: BP 99/56; PULSE 72; RESP 14; TEMP 37.1; O2SAT 96
== END 2024-07-28 00:59 | disposition home or self-care (01) ==
PROVIDERS: Emergency Provider Emergency Medicine; PCP Nurse Practitioner Family
DX: B34.9 Viral infection, unspecified (principal); R51.9 Headache, unspecified; R11.2 Nausea with vomiting, unspecified; R05.9 Cough, unspecified; R19.7 Diarrhea, unspecified; M79.10 Myalgia, unspecified site
CPT/HCPCS: 96374; 99283; J1885; Q0164

== ENCOUNTER 2025-02-09 09:00 | Outpatient (CLI) | payer MEDICAID, SELFPAY ==
--- NOTE | 2025-02-09 09:04 | XR_ITS ---
FINAL REPORT CLINICAL HISTORY: Foot pain COMPARISON: None FINDINGS: Three views of the left ankle show no evidence of acute displaced fracture or dislocation of the visualized bony architecture. The joint spaces appear normal. IMPRESSION: Unremarkable exam. Reviewed, Interpreted and Dictated by Lina Diaz MD Transcribed by Felicita Brewer Authenticated and [facility]
--- NOTE | 2025-02-09 09:04 | XR_ITS ---
FINAL REPORT CLINICAL HISTORY: Foot pain COMPARISON: None FINDINGS: Three views of the right ankle show no evidence of acute displaced fracture or dislocation of the visualized bony architecture. There is an old healed fracture of the distal fibula. The joint spaces appear normal. IMPRESSION: No acute bony abnormality. Reviewed, Interpreted and Dictated by Lina Diaz MD Transcribed by Felicita Brewer Authenticated and [facility]
--- NOTE | 2025-02-09 09:04 | XR_ITS ---
FINAL REPORT CLINICAL HISTORY: Foot pain COMPARISON: None FINDINGS: Three views of the right foot show no evidence of acute displaced fracture or dislocation of the visualized bony architecture. There is minimal enthesophyte formation at the Achilles insertion. The joint spaces appear normal. IMPRESSION: Unremarkable exam. Reviewed, Interpreted and Dictated by Lina Diaz MD Transcribed by Felicita Brewer Authenticated and [facility]
--- NOTE | 2025-02-09 09:04 | XR_ITS ---
FINAL REPORT CLINICAL HISTORY: Foot pain COMPARISON: None FINDINGS: Three views of the left foot show no evidence of acute displaced fracture or dislocation of the visualized bony architecture. There is minimal enthesophyte formation at the Achilles insertion. The joint spaces appear normal. IMPRESSION: No acute bony abnormality. Reviewed, Interpreted and Dictated by Lina Diaz MD Transcribed by Felicita Brewer Authenticated and [facility]
[2025-02-09 09:45] LABS: Hematocrit 45.8 % (37.0-47.0); Hemoglobin 14.7 g/dL (12.2-16.2); Immature Granulocytes % 0.1 %; Mean Corpuscular HGB Conc 32.1 g/dL (31.8-35.4); Mean Corpuscular Hemoglobin 28.3 pg (27.0-31.2); Mean Corpuscular Volume 88.1 fl (81-99); Nucleated Red Blood Cells % 0 %; Platelet Count 244 K/mm3 (142-424); Red Blood Count 5.20 M/mm3 (4.20-5.40); Red Cell Distribution Width-SD 42.5 fL; White Blood Count 7.4 K/mm3 (4.8-10.8)
[2025-02-09 10:13] LABS: Albumin Level 4.6 g/dl (3.5-5.0); Chloride 103 mmol/L (98-107); Sodium 141 mmol/L (136-145)
[2025-02-09 10:14] LABS: Potassium 4.2 mmoL/L (3.5-5.1)
[2025-02-09 10:16] LABS: Alanine Aminotransferase 27 U/L (12-78); Albumin/Globulin Ratio 1.7 (1.1-1.8); Alkaline Phosphatase 79 U/L (38-126); Anion Gap 13.2 mEq/L (5-15); Aspartate Amino Transferase 30 U/L (14-36); Bilirubin,Total 0.4 mg/dl (0.2-1.3); Blood Urea Nitrogen 22 mg/dl (7-17); Carbon Dioxide 29 mmol/L (22.0-30.0); Creatinine,Serum 0.70 mg/dl (0.52-1.04); Estimated Glomerular Filt Rate 88 ml/min (>60); GFR (African American) 106 ML/MIN (>60); Globulin 2.7 g/dL (1.3-3.2); Total Protein,Serum 7.3 g/dl (6.3-8.2)
[2025-02-09 10:17] LABS: Calcium 9.8 mg/dl (8.4-10.2); Glucose 95 mg/dl (74-100)
[2025-02-09 10:23] LABS: NT Pro Brain Natriuretic Pep. < 20.0 pg/mL (0-125)
== END 2025-02-09 23:59 | disposition home or self-care (01) ==
LOC: LAB 09:01
PROVIDERS: PCP Family Medicine; Visit Provider Family Medicine
DX: Z00.00 Encounter for general adult medical examination without abnormal findings (principal); R60.0 Localized edema; M79.673 Pain in unspecified foot; M25.579 Pain in unspecified ankle and joints of unspecified foot; L81.9 Disorder of pigmentation, unspecified
CPT/HCPCS: 36415; 73610; 73630; 80053; 83880; 85025

== ENCOUNTER 2025-05-03 20:21 | Emergency (ER) | payer MEDICAID, SELFPAY ==
[2025-05-03 20:30] VITALS: BP 135/86; PULSE 98; RESP 16; TEMP 37.2; O2SAT 96; BMI 31.1
[2025-05-03 20:33] LABS: Microscopic, Urine URINE MICROSCOPIC (MICROSCOPIC)
[2025-05-03 20:35] LABS: Bilirubin,Urine Negative (Negative); Color,Urine YELLOW (Yellow); Glucose,Urine (UA) Negative (Negative); Ketones,Urine Negative (Negative); Leukocyte Esterase,Urine Negative (Negative); PH,Urine 6.0 (5.0-8.5); Protein,Urine Negative (Negative); Specific Gravity, Urine >= 1.030 (1.005-1.030); Urobilinogen,Urine 0.2 EU/dl (0.2)
[2025-05-03] MEDS: KETOROLAC 30MG/ML VIAL 30 MG IV (21:26)
[2025-05-03] MEDS: METHOCARBAMOL 500MG TABLET 1500 MG PO (21:27)
[2025-05-03] MEDS: LIDOCAINE 5% TRANSDERMAL PATCH 1 EACH TD (21:27)
[2025-05-03] MEDS: ACETAMINOPHEN 500MG TAB 1000 MG PO (21:27)
[2025-05-03] MEDS: DEXAMETHASONE 4MG/ML 1ML VIAL 10 MG IV (21:35)
[2025-05-03 21:47] LABS: Bacteria,Urine 1+ /lpf
--- NOTE | 2025-05-03 22:13 | ED_ITS ---
Discharge Plan Disposition Patient Disposition: Home, Self-Care Condition: Good Prescriptions Prescriptions: New methocarbamol 750 mg tablet 1,500 mg PO Q8H 7 Days Qty: 42 0RF No Action omeprazole 20 mg capsule,delayed release(DR/EC) 20 mg PO Patient Comments: TAKE 1 CAPSULE BY MOUTH DAILY furosemide [Lasix] 20 mg tablet 20 mg PO DAILY PRN (Reason: edema) Qty: 7 3RF albuterol sulfate 90 mcg/actuation HFA aerosol inhaler 2 puff IH Q6H Qty: 6.7 2RF Rx Instructions: administer with spacer fluticasone propionate 50 mcg/actuation spray,suspension See Rx Instructions .ROUTE .COMPLEX Qty: 16 2RF Dose Instruction: SHAKE LIQUID AND USE 1 SPRAY IN EACH NOSTRIL DAILY FOR ALLERGIES Rx Instructions: SHAKE LIQUID AND USE 1 SPRAY IN EACH NOSTRIL DAILY FOR ALLERGIES loratadine [Claritin] 10 mg tablet 10 mg PO DAILY Qty: 90 3RF montelukast 10 mg tablet 10 mg PO DAILY Qty: 90 3RF diclofenac sodium 50 mg tablet,delayed release (DR/EC) 50 mg PO BID Qty: 60 2RF Referrals Follow up/Referrals: Eliz Jasso APRN [Primary Care Provider, Family Practice] - See instructions Activity Restrictions/Add. Instructions Additional Instructions/Restrictions: You may take 1500 mg of Methocarbamol 3 times daily for the next 7 days to help assist with pain control. If you develop leg weakness, numbness in your groin, or urinary retention/urinary incontinence please return to the ER for further evaluation. Clinical Impressions Clinical Impression: Sciatica of left side Instructions Patient Instructions: DI for Low Back Pain Print Language Print Language: Congolese Discharge ED Provider: James Baca Adult HPI General Chief complaint: Back Pain/Injury Stated complaint: Pain in back , lower stomach down leg Time Seen by Provider: 05/03/25 20:38 Mode of Arrival: Ambulatory Source of Information: Patient Description of Symptoms (Recalled from ER Triage Doc. by RN): Pt reports low back pain that radiates around both sides to lower abdomen. Pt also states the pain radiated down her left leg. Pt reports frequent urge to urinate without burning. Pt states her symptoms have been ongoing for 3 weeks. History of Present Illness HPI narrative: This is a 54-year-old female patient, with past medical history of sciatica, who is presenting to the emergency department today for evaluation of left-sided back pain with radiation down her left lower extremity. Patient tells me that she has been diagnosed with sciatica in the past and her symptoms presented very similarly to this. She states that she was treated with anti-inflammatories and steroids and her symptoms did significantly improve. She tells me that this has gradually worsened over the last couple of days but she has not had any traumatic injuries or any specific instance of injury to her back that caused her pain to become exacerbated. She denies saddle anesthesia, urinary incontinence, and urinary retention. She does tell me that she has had some urinary frequency and urgency but no incontinence. Otherwise she is not having abdominal pain, nausea, vomiting, or diarrhea. Related Data Home Medications ?Medication ?Instructions ?Recorded ?Confirmed omeprazole 20 mg capsule,delayed 20 mg PO 11/10/24 release Previous Rx's ?Medication ?Instructions ?Recorded albuterol sulfate 90 mcg/actuation 2 puff inhalation Q 6H allergies 08/05/24 aerosol inhaler #6.7 grams furosemide 20 mg tablet (Lasix) 20 mg PO DAILY PRN mirlande ma #7 tabs 02/09/25 fluticasone propionate 50 See Rx Instructions .Route 1 06/14/24 mcg/actuation nasal .COMPLEX #16 grams spray,suspension loratadine 10 mg tablet (Claritin) 10 mg PO DAILY #90 tabs 04/19/25 montelukast 10 mg tablet 10 mg PO DAILY allergies #90 tabs 04/25/25 diclofenac sodium 50 mg 50 mg PO BID #60 tabs tablet,delayed release methocarbamol 750 mg tablet 1,500 mg (2 x 750 mg) PO Q 8H 7 05/03/25 days #42 tabs Allergies Allergy/AdvReac Type Severity Reaction Status Date / Time No Known Allergies Allergy Verified 02/09/25 08:22 [facility] Disclaimer: The information contained in this section may have been updated after the patient was seen, as this information can be updated by other users. Medical History (Updated 05/03/25 @ 22:13 by James Baca DO) Headache Ear infection Trapezius muscle strain Nausea vomiting and diarrhea Raised rash Anxiety Diverticulitis Hydroureteronephrosis Depression Surgical History History of delivery History of total abdominal hysterectomy and bilateral salpingo-oophorectomy Family History Other No significant family history Social History (Updated 02/09/25 @ 08:25 by AUDREY Salinas) Smoking Status: Current every day smoker tobacco type: cigarettes packs per day: 1 smoking status stop date: december 25 2024 second hand exposure: No alcohol intake: current alcohol intake frequency: holidays/special occasions only substance use type: denies use current occupational status: employed Travel in the last 8 weeks?: None household members: significant other housing: house 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 current occupational exposures/hazards: No caffeine: Yes Have you lived/traveled outside US in past 30 days?: No Contact w/someone who lives/traveled outside US past 30 days?: No Exposure to someone with infectious disease in past 14 days?: No Do you have a fever (greater than 100.4 F or 38 C)?: No Have you tested positive for COVID-19?: No Exposed to someone with COVID-19 in past 14 days?: No Do you have a sore throat?: No Do you have a cough?: No Do you have any weakness?: No Do you have any diarrhea?: No Are you experiencing any unusual bleeding?: No Do you have any muscle aches/pain?: No Do you have any abdominal pain?: No Are you experiencing loss of taste or smell?: No Other Medical History Have you received the Flu Vaccine for this season: No Have you received the Pneumonia Vaccine: No ROS Obtained: Yes Systems reviewed as appropriate & no additional complaints except as documented Physical Exam General General appearance: other (See MDM) Respiratory Respiratory exam: Present other (See MDM) Cardiovascular Cardiovascular exam: Present other (See MDM) Neurological Exam Neurological exam: Present other (See MDM) Medical Decision Making Medical Records Medical records reviewed: Yes I reviewed the patient's medical records. Screening: Per USPSTF and CDC recommendations, given the prevalence of disease in our region, it is our hospital?s policy to screen for HIV and viral Hepatitis for all patients aged 18 and over and those with ongoing risk factors. Chandan Inquiry Pt receiving controlled substance: No Chandan was queried for this patient: No Vital Signs: 05/03/25 20:30 Temperature 98.9 F Temperature Source Oral Pulse Rate [Left] 98 H Respiratory Rate 16 Blood Pressure [Right Arm] 135/86 Blood Pressure Mean [Right Arm] 102 Blood Pressure Source [Right Arm] Automatic Cuff Blood Pressure Position [Right Arm] Sitting 02 Sat by Pulse Oximetry 96 Oxygen Delivery Method Room Air Lab Data Lab Results 05/03/25 20:30: Urine Color Yellow, Urine Appearance Clear, Urine pH 6.0, Ur Specific [place] >= 1.030, Urine Protein Negative, Urine Glucose (UA) Negative, Urine Ketones Negative, Urine Blood 1+ A, Urine Nitrate Negative, Urine Bilirubin Negative, Urine Urobilinogen 0.2, Ur Leukocyte Esterase Negative, Urine WBC 3-5, Ur Squamous Epith Cells 3-5, Urine Bacteria 1+ Orders (Tests/Meds): ED MEDICATIONS Discontinued Medications Generic Name Dose Route Start Last Admin Trade Name Freq PRN Reason Stop Dose Admin Acetaminophen 1,000 mg 05/03/25 21:12 05/03/25 21:27 Acetaminophen 500mg Tab PO 05/03/25 21:13 1,000 mg ONCE ONE Administration Dexamethasone Sodium Phosphate 10 mg 05/03/25 21:12 05/03/25 21:35 Dexamethasone 4mg/Ml 1ml Vial IV 05/03/25 21:13 10 mg ONCE ONE Administration Ketorolac Tromethamine 30 mg 05/03/25 21:12 05/03/25 21:26 Ketorolac 30mg/Ml Vial IV 05/03/25 21:13 30 mg ONCE ONE Administration Lidocaine 1 each 05/03/25 21:12 05/03/25 21:27 Lidocaine 5% Transdermal Patch TD 05/03/25 21:13 1 each ONCE ONE Administration Methocarbamol 1,500 mg 05/03/25 21:14 05/03/25 21:27 Methocarbamol 500mg Tablet PO 05/03/25 21:15 1,500 mg ONCE ONE Administration ORDERS Category Date Time Status UA [Urinalysis and Microscopic] Stat Lab 05/03/25 20:30 Completed Medical Decision Narrative: In summary, this is a 54-year-old female patient who is presenting to the emergency department today for evaluation of left-sided back pain with left-si ded radiculopathy. The patient's comorbidities include a past medical history of sciatica that has resolved response to steroids anti-inflammatories in the past. On initial evaluation of the patient they were resting comfortably in no acute distress and nontoxic in appearance. They are hemodynamically stable, saturating well room air, and are neurologically intact. On physical examination the patient has no abdominal tenderness to palpation. She has full major motion of her hips without pain. She has 5 out of 5 strength in bilateral lower extremities. Patellar reflexes are normal bilaterally. She has no midline thoracic or lumbar spine tenderness. However, she does have hypertonicity in the left paraspinal lumbar musculature as well as hypertonicity and tenderness of the muscles within the left buttocks. Differential diagnosis includes lumbar strain, lumbar muscle spasm, sciatica, among others. We did perform a urinalysis that was personally turbid by me and demonstrates no evidence of urinary tract infection. We also performed a postvoid residual which showed less than 25 mL of urine in her bladder. This suggests against acute spinal cord syndrome. We treated the patient with Toradol, Tylenol, Robaxin, dexamethasone, and a lidocaine patch. On repeat assessment the patient she states that her pain has significantly improved. We will discharge her home with a prescription for Robaxin to continue taking over the next few days as she already has anti- inflammatories at home. Return precautions have been given. At this time all questions have been answered and all parties are agreeable with the decision to discharge home. Critical Care Critical Care Time Critical Care Time: No
[2025-05-03 22:18] VITALS: BP 115/80; PULSE 74; RESP 18; TEMP 36.8; O2SAT 100
== END 2025-05-03 22:30 | disposition home or self-care (01) ==
PROVIDERS: Emergency Provider Student in an Organized Health Care Education/Training Program; PCP Family Medicine
DX: M54.32 Sciatica, left side (principal)
CPT/HCPCS: 51798; 81001; 96374; 96375; 99284; 99285; J1100; J1885

== ENCOUNTER 2025-05-07 16:54 | Emergency (ER) | payer MEDICAID, SELFPAY ==
--- NOTE | 2025-05-07 16:57 | ED_ITS ---
Discharge Plan Disposition Patient Disposition: Home, Self-Care Condition: Good Prescriptions Prescriptions: New methylprednisolone [Medrol (Alfonso)] 4 mg tablets,dose pack 4 mg PO DAILY Qty: 21 0RF Rx Instructions: Day 1: 6 tablets-24mg Day 2: 5 tablets-20mg Day 3: 4 tablets-16mg Day 4: 3 tablets-12mg Day 5: 2 tablets-8mg Day 6: 1 tablet-4mg ibuprofen 600 mg tablet 600 mg PO Q6H PRN (Reason: pain) Qty: 30 0RF acetaminophen [Tylenol Extra Strength] 500 mg tablet 1,000 mg PO Q6H PRN (Reason: pain) Qty: 30 0RF lidocaine 5 % adhesive patch,medicated 1 patch topical DAILY Qty: 15 0RF Rx Instructions: leave on most painful area for up to 12 hrs No Action omeprazole 20 mg capsule,delayed release(DR/EC) 20 mg PO Patient Comments: TAKE 1 CAPSULE BY MOUTH DAILY furosemide [Lasix] 20 mg tablet 20 mg PO DAILY PRN (Reason: edema) Qty: 7 3RF albuterol sulfate 90 mcg/actuation HFA aerosol inhaler 2 puff IH Q6H Qty: 6.7 2RF Rx Instructions: administer with spacer fluticasone propionate 50 mcg/actuation spray,suspension See Rx Instructions .ROUTE .COMPLEX Qty: 16 2RF Dose Instruction: SHAKE LIQUID AND USE 1 SPRAY IN EACH NOSTRIL DAILY FOR ALLERGIES Rx Instructions: SHAKE LIQUID AND USE 1 SPRAY IN EACH NOSTRIL DAILY FOR ALLERGIES loratadine [Claritin] 10 mg tablet 10 mg PO DAILY Qty: 90 3RF montelukast 10 mg tablet 10 mg PO DAILY Qty: 90 3RF diclofenac sodium 50 mg tablet,delayed release (DR/EC) 50 mg PO BID Qty: 60 2RF methocarbamol 750 mg tablet 1,500 mg PO Q8H 7 Days Qty: 42 0RF lidocaine 5 % adhesive patch,medicated 2 patch topical DAILY Qty: 15 0RF Rx Instructions: leave on most painful area for up to 12 hrs Referrals Follow up/Referrals: [facility] Physical Therapy [Provider Group, Physical Therapy] - See instructions Eliz Jasso APRN [Nurse Practitioner, Family Practice] - See instructions Activity Restrictions/Add. Instructions Additional Instructions/Restrictions: Take the steroids as prescribed. You can take 1500 mg twice daily of the Robaxin or take 750 mg 4 times a day. Take Tylenol and ibuprofen as well. I sent with a referral to physical therapy, you will need to call them. Return to the emergency department if you are unable to be unable to walk have numbness or weakness or if you have any other acute concerns. Clinical Impressions Clinical Impression: Sciatica Instructions Patient Instructions: DI for Low Back Pain Print Language Print Language: Kazakh Discharge ED Provider: Aissatou Blandon General Adult HPI General Chief complaint: Back Pain/Injury Stated complaint: Severe pain walking, due to sciatica Time Seen by Provider: 05/07/25 16:57 History of Present Illness HPI narrative: Patient is an otherwise healthy 54-year-old female who presented to the emergency department with back pain. Patient states that she was seen a few days prior for sciatica. However patient reports worsening symptoms. Patient states that she has not had any associated trauma has not fallen onto her back. Patient denies any urinary or bowel incontinence. Patient denies any fevers. Patient denies any metastatic or cancer history. Patient states that she was given a dose of dexamethasone in the emergency department has taken Tylenol and ibuprofen and has been using lidocaine patches. Patient states that she bends and is unable to stand up and patient reports knee pain with walking. States that she has been having issues doing her job given her pain. Patient states the pain is in her lower back and her left buttock radiates into her left lower extremity. Patient denies any numbness or weakness. Related Data Home Medications ?Medication ?Instructions ?Recorded ?Confirmed omeprazole 20 mg capsule,delayed 20 mg PO 11/10/24 release Previous Rx's ?Medication ?Instructions ?Recorded albuterol sulfate 90 mcg/actuation 2 puff inhalation Q 6H allergies 08/05/24 aerosol inhaler #6.7 grams furosemide 20 mg tablet (Lasix) 20 mg PO DAILY PRN mirlande ma #7 tabs 02/09/25 fluticasone propionate 50 See Rx Instructions .Route 1 06/14/24 mcg/actuation nasal .COMPLEX #16 grams spray,suspension loratadine 10 mg tablet (Claritin) 10 mg PO DAILY #90 tabs 04/19/25 montelukast 10 mg tablet 10 mg PO DAILY allergies #90 tabs 04/25/25 diclofenac sodium 50 mg 50 mg PO BID #60 tabs tablet,delayed release lidocaine 5 % topical patch 2 patch topical DAILY #15 ea 05/03/25 methocarbamol 750 mg tablet 1,500 mg (2 x 750 mg) PO Q 8H 7 05/03/25 days #42 tabs acetaminophen 500 mg tablet 1,000 mg (2 x 500 mg) PO Q 6H PRN 05/07/25 (Tylenol Extra Strength) pain #30 tabs ibuprofen 600 mg tablet 600 mg PO Q6H PRN pain #30 t abs 05/07/25 lidocaine 5 % topical patch 1 patch topical DAILY #15 ea 05/07/25 methylprednisolone 4 mg tablets in 4 mg PO DAILY #21 t abs 05/07/25 a dose pack (Medrol (Alfonso)) Allergies Allergy/AdvReac Type Severity Reaction Status Date / Time No Known Allergies Allergy Verified 02/09/25 08:22 [facility] Disclaimer: The information contained in this section may have been updated after the patient was seen, as this information can be updated by other users. Medical History (Updated 05/07/25 @ 18:46 by Aissatou Blandon DO) Headache Ear infection Trapezius muscle strain Nausea vomiting and diarrhea Raised rash Anxiety Diverticulitis Hydroureteronephrosis Depression Surgical History History of delivery History of total abdominal hysterectomy and bilateral salpingo-oophorectomy Family History Other No significant family history Social History Smoking Status: Current every day smoker tobacco type: cigarettes packs per day: 1 smoking status stop date: december 25 2024 second hand exposure: No alcohol intake: current alcohol intake frequency: holidays/special occasions only substance use type: denies use current occupational status: employed Travel in the last 8 weeks?: None household members: significant other housing: house 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 current occupational exposures/hazards: No caffeine: Yes Have you lived/traveled outside US in past 30 days?: No Contact w/someone who lives/traveled outside US past 30 days?: No Exposure to someone with infectious disease in past 14 days?: No Do you have a fever (greater than 100.4 F or 38 C)?: No Have you tested positive for COVID-19?: No Exposed to someone with COVID-19 in past 14 days?: No Do you have a sore throat?: No Do you have a cough?: No Do you have any weakness?: No Do you have any diarrhea?: No Are you experiencing any unusual bleeding?: No Do you have any muscle aches/pain?: No Do you have any abdominal pain?: No Are you experiencing loss of taste or smell?: No Other Medical History Have you received the Flu Vaccine for this season: No Have you received the Pneumonia Vaccine: No ROS Obtained: Yes All systems reviewed & no additional complaints except as documented and Yes Systems reviewed as appropriate & no additional complaints except as documented Physical Exam General General appearance: alert and in no apparent distress Head Head exam: atraumatic, normocephalic and normal inspection Eye Eye exam: Present normal appearance, PERRL and EOMI; Absent scleral icterus ENT ENT exam: Present normal exam and normal external ear exam Neck Neck exam: Present normal inspection and full ROM Chest Chest inspection: Present normal inspection and symmetric chest wall rise Respiratory Respiratory exam: Present normal lung sounds bilaterally; Absent respiratory distress or wheezes Cardiovascular Cardiovascular exam: Present regular rate, normal rhythm and normal heart sounds Abdominal Exam Abdominal exam: Present soft and distention; Absent tenderness, guarding or rebound Extremities Exam Extremities exam: Present normal inspection and full ROM Back Exam Back exam: Present normal inspection, full ROM, tenderness, sciatic notch tenderness (L), straight leg raise (L) and other (midline lumbar spine tenderness, L SI joint tenderness) Neurological Exam Neurological exam: Present alert and oriented X3 Psychiatric Psychiatric exam: Present normal affect and normal mood Skin Skin exam: Present warm and dry Medical Decision Making Medical Records Medical records reviewed: Yes I reviewed the patient's medical records. Screening: Per USPSTF and CDC recommendations, given the prevalence of disease in our region, it is our hospital?s policy to screen for HIV and viral Hepatitis for all patients aged 18 and over and those with ongoing risk factors. Chandan Inquiry Pt receiving controlled substance: No Vital Signs: 05/07/25 17:00 05/07/25 17:00 05/07/25 17:00 Temperature 98.4 F 98.4 F Temperature Source Oral Pulse Rate 88 91 H Pulse Rate [Right] 88 Respiratory Rate 18 18 Blood Pressure 139/83 139/83 Blood Pressure [Right Arm] 139/83 Blood Pressure Mean [Right Arm] 101 02 Sat by Pulse Oximetry 100 100 99 Oxygen Delivery Method Room Air 05/07/25 17:31 05/07/25 18:00 05/07/25 18:30 Temperature Temperature Source Pulse Rate 66 67 70 Pulse Rate [Right] Respiratory Rate Blood Pressure 112/93 H 116/76 106/70 L Blood Pressure [Right Arm] Blood Pressure Mean [Right Arm] 02 Sat by Pulse Oximetry 99 99 95 Oxygen Delivery Method Room Air Room Air Room Air 05/07/25 18:55 Temperature 98.4 F Temperature Source Pulse Rate 68 Pulse Rate [Right] Respiratory Rate 18 Blood Pressure 106/70 L Blood Pressure [Right Arm] Blood Pressure Mean [Right Arm] 02 Sat by Pulse Oximetry Oxygen Delivery Method Lab Data Lab results reviewed: Yes I reviewed the patient's lab results. Orders (Tests/Meds): ED MEDICATIONS Discontinued Medications Generic Name Dose Route Start Last Admin Trade Name Freq PRN Reason Stop Dose Admin Acetaminophen 1,000 mg 05/07/25 17:28 05/07/25 17:49 Acetaminophen 500mg Tab PO 05/07/25 17:29 1,000 mg ONCE ONE Administration Diazepam 5 mg 05/07/25 17:28 05/07/25 17:49 Diazepam 5mg Tablet PO 05/07/25 17:29 5 mg ONCE ONE Administration Ketorolac Tromethamine 30 mg 05/07/25 17:28 05/07/25 17:49 Ketorolac 30mg/Ml Vial IM 05/07/25 17:29 30 mg ONCE ONE Administration Oxycodone HCl 5 mg 05/07/25 17:30 05/07/25 17:49 Oxycodone 5mg Immediate Release Tablet PO 05/07/25 17:31 5 mg ONCE ONE Administration ORDERS Category Date Time Status CT bony pelvis Stat Cat Scan 05/07/25 17:[address] lumbar spine wo con Stat Cat Scan 05/07/25 17:28 Completed Medical Decision Narrative: Patient is an otherwise healthy 54-year-old female who presented to the emergency department with back pain. On arrival, patient was hemodynamically stable with unremarkable vital signs. Differential includes but not limited to: Sciatica, herniated disc, back fracture, other fracture, amongst others. Patient's worsening symptoms although in the absence of trauma CT scans were obtained. Was given medications for pain control in the emergency department. Patient CT scans were negative for acute fractures. I suspect that patient continues to have sciatica. Patient has no red flag symptoms. At this time, patient was given a Medrol Dosepak. Patient was prescribed Tylenol ibuprofen and lidocaine patches. Patient was given a referral to physical therapy. Patient was otherwise discharged home in stable condition return precautions were discussed. Critical Care Critical Care Time Critical Care Time: No
[2025-05-07 17:00] VITALS: BP 139/83; PULSE 88; PULSE 91; RESP 18; TEMP 36.9; O2SAT 100; O2SAT 99; BMI 29.2
--- NOTE | 2025-05-07 17:28 | CT_ITS ---
PROCEDURE INFORMATION: Exam: CT Lumbar Spine Without Contrast Exam date and time: 05/07/2025 5:42 PM Age: 54 years old Clinical indication: Low back pain; Additional info: Midline spinal tenderness TECHNIQUE: Imaging protocol: Computed tomography of the lumbar spine without contrast. Total images: 271 Radiation optimization: All CT scans at this facility use at least one of these dose optimization techniques: automated exposure control; mA and/or kV adjustment per patient size (includes targeted exams where dose is matched to clinical indication); or iterative reconstruction. COMPARISON: CT LUMBAR SPINE WO CON 03/09/2024 9:34 PM FINDINGS: Bones/joints: Five non rib-bearing lumbar vertebral segments. Vertebral body height and alignment is maintained. The facet joints are appropriately aligned. No significant degenerate facet spondylosis. The posterior elements are intact. Stable benign-appearing sclerosis in the left ilium, unchanged from March 09, 2024. Disc space heights are appropriate for age. No disc herniation or spinal canal stenosis. No neural foraminal encroachments. Vasculature: Nonaneurysmal abdominal aorta. Lymph nodes: No retroperitoneal mass or lymphadenopathy. Soft tissues: Unremarkable soft tissues. IMPRESSION: 1. Negative lumbar spine. 2. No acute process or significant change from March 09, 2024.
--- NOTE | 2025-05-07 17:28 | CT_ITS ---
PROCEDURE INFORMATION: Exam: CT Pelvis Without Contrast, Skeleton Exam date and time: 05/07/2025 5:45 PM Age: 54 years old Clinical indication: Hip pain; Left hip; Additional info: L hip tenderness TECHNIQUE: Imaging protocol: Computed tomography of the pelvis without contrast. Exam focused on the skeleton. Total images: 951 Radiation optimization: All CT scans at this facility use at least one of these dose optimization techniques: automated exposure control; mA and/or kV adjustment per patient size (includes targeted exams where dose is matched to clinical indication); or iterative reconstruction. COMPARISON: CT ABDOMEN PELVIS W CON 03/09/2024 9:37 PM FINDINGS: Kidneys and ureters: Dilated distal right ureter, most likely peristalsis. Intestine: Included small bowel is unremarkable. Moderate pancolonic diverticulosis. Collapsed rectum. Appendix: Normal appendix. Vasculature: Numerous pelvic phleboliths. Reproductive: Status post hysterectomy. No adnexal mass. 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 No acute osseous abnormality. Sacrococcygeal alignment is maintained. No hip fracture or dislocation. No significant degenerative arthropathy. Soft tissues: Diastasis of the rectus fascia with tiny fat containing umbilical hernia. Notes: Please see lumbar spine CT dictated separately. IMPRESSION: 1. No acute osseous abnormality. 2. No acute process within the pelvis. 3. Stable chronic and incidental findings.
[2025-05-07 17:31] VITALS: BP 112/93; PULSE 66; O2SAT 99
[2025-05-07] MEDS: OXYCODONE 5MG IMMEDIATE RELEASE TABLET 5 MG PO (17:49)
[2025-05-07] MEDS: ACETAMINOPHEN 500MG TAB 1000 MG PO (17:49)
[2025-05-07] MEDS: KETOROLAC 30MG/ML VIAL 30 MG IM (17:49)
[2025-05-07] MEDS: diazePAM 5MG TABLET 5 MG PO (17:49)
[2025-05-07 18:00] VITALS: BP 116/76; PULSE 67; O2SAT 99
[2025-05-07 18:30] VITALS: BP 106/70; PULSE 70; O2SAT 95
[2025-05-07 18:55] VITALS: BP 106/70; PULSE 68; RESP 18; TEMP 36.9; O2SAT 99
== END 2025-05-07 19:03 | disposition home or self-care (01) ==
PROVIDERS: Emergency Provider Student in an Organized Health Care Education/Training Program; PCP Nurse Practitioner Family
DX: M54.32 Sciatica, left side (principal)
CPT/HCPCS: 72131; 72192; 96372; 99285; J1885